=== PATIENT | female | born 1985 | race Caucasian/White ===

== ENCOUNTER 2020-12-01 13:52 | Outpatient (REF) | payer OTHER, SELFPAY ==
[2020-12-01 16:16] LABS: MANUAL DIFF FLAG NO
[2020-12-01 16:19] LABS: Basophils Percent Auto 0.4 % (0-2); Eosinophils Absolute Auto 0.3 X10*3/uL (0.0-0.4); Eosinophils Percent Auto 3.5 % (0-4); Hematocrit 41.5 % (37-47); Hemoglobin 12.9 g/dl (12.0-16.0); Imm Gran Abs Auto 0.03 X10*3/uL (0.00-0.03); Imm Gran Pct Auto 0.3 % (0.0-0.4); Lymphocytes Absolute Auto 3.3 X10*3/uL (1.2-4.9); Lymphocytes Percent Auto 35.7 % (20-40); Mean Corpuscular HGB Conc 31.1 g/dl (31.0-35.0); Mean Corpuscular Hemoglobin 26.5 pg (27.0-33.0); Mean Corpuscular Volume 85.4 fL (80-98); Mean Platelet Volume 11.1 fL (9.4-12.3); Monocytes Absolute Auto 0.6 X10*3/uL (0.1-1.2); Neutrophils Percent Auto 54.1 % (45-73); Platelet Count 326 X10*3/uL (160-400); Red Blood Count 4.86 X10*6/uL (4.20-5.50); Red Cell Distribution Width 14.6 % (11.0-16.0); White Blood Count 9.2 X10*3/uL (4.8-10.8)
[2020-12-01 16:46] LABS: Alanine Aminotransferase 24 U/L (0-31); Albumin Level 4.2 g/dL (3.5-5.0); Alkaline Phosphatase 66 U/L (39-117); Anion Gap 14 (12-20); Aspartate Amino Transferase 15 U/L (5-31); Bilirubin Total 0.7 mg/dL (0.0-1.0); Blood Urea Nitrogen 10 mg/dL (9-16); Calcium 8.7 mg/dL (8.4-10.2); Carbon Dioxide 24 mmol/L (22-29); Chloride 106 mmol/L (96-108); Cholesterol 206 mg/dL; Creatinine Clr Calc Pharmacy 132.9; Estimated Glomerular Filt Rate > 60; Glucose Fasting 83 mg/dL (60-99); HDL Cholesterol 51 mg/dL; LDL Cholesterol Calculated 137 mg/dl; Potassium 4.2 mmol/L (3.3-5.1); Sodium 140 mmol/L (135-145); Total Protein 7.3 g/dL (6.5-8.0); Triglycerides 91 mg/dL
[2020-12-01 17:07] LABS: TSH reflex Free T4 1.87 uIU/mL (0.32-4.0)
== END 2020-12-01 13:53 | disposition home or self-care (01) ==
LOC: HO.HMGCLDS 13:52
PROVIDERS: PCP Internal Medicine; Visit Provider Internal Medicine
DX: Z00.01 Encounter for general adult medical examination with abnormal findings (principal); E66.9 Obesity, unspecified; K51.50 Left sided colitis without complications
CPT/HCPCS: 36415; 80053; 80061; 84443; 85025

== ENCOUNTER 2020-12-16 13:59 | Outpatient (REF) | payer OTHER, SELFPAY ==
[2020-12-20 06:42] LABS: HPV mRNA E6/E7 rflx Not Detected (Not Detected)
== END 2020-12-16 14:00 | disposition home or self-care (01) ==
LOC: HO.LAB 13:59
PROVIDERS: PCP Internal Medicine; Visit Provider Advanced Practice Midwife
DX: Z01.419 Encounter for gynecological examination (general) (routine) without abnormal findings (principal); Z11.51 Encounter for screening for human papillomavirus (HPV); E66.9 Obesity, unspecified; F41.9 Anxiety disorder, unspecified; Z87.891 Personal history of nicotine dependence; Z79.899 Other long term (current) drug therapy
CPT/HCPCS: 36415; 87624; 88142

== ENCOUNTER 2021-04-18 02:14 | Emergency (ER) | payer OTHER, SELFPAY ==
[2021-04-18 02:27] VITALS: BP 154/105; PULSE 108; RESP 16; TEMP 36.3; O2SAT 98; BMI 42.4
--- NOTE | 2021-04-18 03:01 | ED_ITS ---
HPI - Allergic Reaction General Chief complaint: Allergic Reaction Stated complaint: allergic reaction to topical med Time Seen by Provider: 04/18/21 03:01 Source: patient Mode of arrival: ambulatory History of Present Illness HPI narrative: 35-year-old female with presentation of facial redness and swelling after re-application of topical clindamycin for acne treatment. Patient denies any shortness of breath, scratchy throat, lip/tongue swelling and states that she took 50 mg of Benadryl at approximately 11:00 p.m. last night. Patient states that she use the clindamycin a couple of weeks ago with some facial redness, stopped using it but then decided to try it again yesterday and now presents with a red swollen face. Related Data Home Medications Medication Instructions Recorded Confirmed lansoprazole 30 mg capsule,delayed 30 mg PO DAILY 12/01/20 release mesalamine 1.2 gram tablet,delayed g PO 12/01/20 release vedolizumab 300 mg intravenous 0 mg IV 12/01/20 solution Previous Rx's Medication Instructions Recorded montelukast 10 mg tablet 10 mg PO DAILY #90 tab 12/04/20 albuterol sulfate 90 mcg/actuation 2 puff PO Q4H PRN #8.5 g 01/09/21 aerosol inhaler beclomethasone dipropionate 80 2 inh INHALATION Q12H #10.6 g 01/09/21 mcg/actuation HFA breath activated aerosol fluticasone propionate 50 1 spray INTRANASAL DAILY #16 g 01/09/21 mcg/actuation nasal spray,suspension Allergies Allergy/AdvReac Type Severity Reaction Status Date / Time mercaptopurine Allergy Intermediate PANCREATITI Verified 12/16/20 14:10 [MERCAPTOPURINE] S prochlorperazine Allergy Intermediate DYSTONIA Verified 12/16/20 14:10 [From COMPAZINE] Review of Systems Review of Systems: Pertinent positives and negatives as stated in HPI 10 point review of systems is otherwise negative. [facility] Past Medical History Source: nursing notes reviewed Medical History Allergic rhinitis Anxiety GERD (gastroesophageal reflux disease) Mild intermittent asthma in adult without complication Obesity (BMI 30-39.9) Ulcerative colitis, left sided Surgical History Hx of LASIK Family History Family History Father Drug addiction Alcoholism Mother History of COPD History of asthma Maternal Aunt Breast cancer Ovarian cancer Bipolar 1 disorder Maternal Grandfather Colon cancer Brother Drug addiction Alcoholism Social History Social History Alcohol intake: current Advance Directives: No Advance Directives Information Provided: No Patient : No Gender identity: female Physical Exam Vital Signs: Vital Signs: Last Vital Signs Temp 97.3 F 04/18/21 02:27 Pulse 108 H 04/18/21 02:27 Resp 16 04/18/21 02:27 BP 154/105 H 04/18/21 02:27 Pulse Ox 98 04/18/21 02:27 Body Mass Index 42.4 VITAL SIGNS: Reviewed. GENERAL: Well developed, well nourished, in no acute distress. HEAD: Normocephalic/atraumatic EYES: PERRLA, EOMI EARS: Ext canals without abnormality, TMs non-bulging and non-erythematous NOSE: Nares patent bilateral OROPHARYNX: no oral lesions noted, posterior pharynx clear LUNGS: Normal breath sounds. No adventitious sounds or accessory muscle use. SpO2<98> CARDIOVASCULAR: Regular rate and rhythm without noted murmurs ABDOMEN: Soft, non-tender, non-distended with bowel sounds. SKIN: Inspection of the skin reveals facial erythema/swelling along distribution of medication application but there are hives no where else on the body. NEUROLOGIC: Alert and oriented x 4. Course Course Course Narrative: 35-year-old female with history and clinical presentation consistent with contact dermatitis likely secondary to the clindamycin. Patient knows that we will continue to observe her for additional 1-2 hours. 0350: On re-evaluation patient's face has improved greatly with gradual reduction in redness as well as swelling. Patient again denies any shortness of breath, throat scratchiness, lip/tongue swelling. Patient is otherwise stable for discharge to home with instructions to continue with [id number] Benadryl for the next 24-48 hours and instructed to no longer use topical clindamycin. Discharge Plan Discharge Clinical Impression: Contact dermatitis, Clindamycin adverse reaction Patient Disposition: Home, Self-Care Instructions: Contact Dermatitis (ED), Adverse Drug Reaction (ED) Additional Instructions: 1. Resume all home medications as prescribed. 2. Please follow-up with your primary care provider in the next 2-3 days for re- evaluation further outpatient management. 3. Continue to use [id number] Benadryl for the next 24-48 hours to control facial rash. Return to the ER for acute worsening of symptoms. Prescriptions: No Action montelukast 10 mg tablet 10 mg PO DAILY Qty: 90 RF: 1 albuterol sulfate 90 mcg/actuation HFA aerosol inhaler 2 puff PO Q4H PRN (Reason: shortness of breath or wheezing) Qty: 8.5 RF: 2 beclomethasone dipropionate 80 mcg/actuation HFA aerosol breath activated 2 inh inhalation Q12H Qty: 10.6 RF: 1 fluticasone propionate 50 mcg/actuation spray,suspension 1 spray intranasal DAILY Qty: 16 RF: 1 mesalamine 1.2 gram tablet,delayed release (DR/EC) PO RF: 0 lansoprazole 30 mg capsule,delayed release(DR/EC) 30 mg PO DAILY RF: 0 Entyvio 300 mg recon soln 0 mg IV RF: 0 Referrals: Mar Edwards MD [Primary Care Provider] - 2 days (Adverse reaction to topical clindamycin without anaphylaxis/angioedema.)
[2021-04-18] MEDS: Famotidine 20 MG TABLET PO (03:14)
== END 2021-04-18 04:05 | disposition home or self-care (01) ==
PROVIDERS: Emergency Provider Student in an Organized Health Care Education/Training Program; PCP Internal Medicine
DX: L25.1 Unspecified contact dermatitis due to drugs in contact with skin (principal); T36.8X5A Adverse effect of other systemic antibiotics, initial encounter; Y92.9 Unspecified place or not applicable
CPT/HCPCS: 99283

== ENCOUNTER 2022-02-26 09:28 | Outpatient (REF) | payer OTHER, SELFPAY ==
[2022-02-26 11:49] LABS: Anion Gap 11 (12-20); Blood Urea Nitrogen 11 mg/dL (9-16); Calcium 9.5 mg/dL (8.4-10.2); Carbon Dioxide 24 mmol/L (22-29); Chloride 106 mmol/L (96-108); Cholesterol 204 mg/dL; Estimated Glomerular Filt Rate > 60; Glucose Fasting 97 mg/dL (60-99); HDL Cholesterol 53 mg/dL; LDL Cholesterol Calculated 141 mg/dl; Potassium 4.4 mmol/L (3.3-5.1); Sodium 137 mmol/L (135-145); Triglycerides 53 mg/dL
[2022-02-26 12:12] LABS: Vitamin D 25-OH Total 34.8 ng/mL (>30)
== END 2022-02-26 09:29 | disposition home or self-care (01) ==
LOC: HO.HMGCLDS 09:28
PROVIDERS: PCP Internal Medicine; Visit Provider Internal Medicine Gastroenterology
DX: Z00.01 Encounter for general adult medical examination with abnormal findings (principal); E66.9 Obesity, unspecified; K51.50 Left sided colitis without complications; K51.30 Ulcerative (chronic) rectosigmoiditis without complications
CPT/HCPCS: 36415; 80048; 80061; 80280; 82306; 82542

== ENCOUNTER 2022-05-26 14:19 | Outpatient (REF) | payer OTHER, SELFPAY ==
[2022-05-26 18:48] LABS: CT PCR NOT DETECTED (Not Detect.)
[2022-05-26 18:49] LABS: NG PCR NOT DETECTED (Not Detect.)
[2022-05-27 10:50] LABS: BV Int Neg Control Negative (Negative); BV Int Pos Control Positive (Positive)
== END 2022-05-26 14:20 | disposition home or self-care (01) ==
LOC: HO.LAB 14:19
PROVIDERS: Visit Provider Advanced Practice Midwife
DX: Z11.3 Encounter for screening for infections with a predominantly sexual mode of transmission (principal)
CPT/HCPCS: 87480; 87491; 87510; 87591; 87660

== ENCOUNTER 2023-01-17 18:28 | Observation (INO) | payer OTHER, SELFPAY ==
--- NOTE | ~2023-01-17 | CT_ITS ---
EXAMINATION: CT ABDOMEN AND PELVIS WITH CONTRAST CLINICAL INFORMATION: Epigastric pain, history of pancreatitis COMPARISON: None available. TECHNIQUE: Multidetector volumetric images were obtained from the superior aspect of the liver through the pubic symphysis following administration 85 mL of Omnipaque 350 intravenous contrast. Sagittal and coronal reformatted images were obtained on the technologist's workstation. Oral contrast: No This CT examination was performed using dose optimization techniques as appropriate, variously including the following: *Automated exposure control *Adjustment of mA and/or kV according to patient size (this includes techniques or standardized protocols for targeted exams where dose is matched to indication/reason for exam; i.e. extremities or head) *Use of iterative reconstruction technique DLP: 951 mGy-cm FINDINGS: LUNG BASES: The visualized lung bases are unremarkable. LIVER, GALLBLADDER, AND BILIARY TREE: The liver is normal in size, shape, and attenuation. No focal hepatic lesion or biliary ductal dilatation is present. The gallbladder is unremarkable with no evidence of radiopaque gallstones, gallbladder wall thickening, or obvious pericholecystic inflammatory changes. PANCREAS: There is mild peripancreatic stranding, suspicious for mild sequelae of pancreatitis. No discrete fluid collection is seen. SPLEEN: Unremarkable. ADRENAL GLANDS: Unremarkable. KIDNEYS AND URETERS: Bilateral nephrograms are symmetric. No hydronephrosis or obstructing calculus identified. BLADDER: Mildly distended and grossly unremarkable. GASTROINTESTINAL TRACT: Assessment for wall thickening in some segments of the colon is limited due to luminal collapse, though no significant pericolonic stranding is seen to strongly suggest a colitis. No evidence of bowel obstruction. The appendix is unremarkable. No free fluid or free air is seen. ABDOMINAL WALL: No significant hernia is appreciated. LYMPH NODES: Normal. VASCULAR: Unremarkable. PELVIC VISCERA: There is a simple right adnexal cyst measuring up to 3.2 cm; no follow-up imaging recommended. OSSEOUS STRUCTURES: Small sclerotic focus in the L2 vertebral body is suggestive of a bone island. CT/CT abdomen pelvis w IV con IMPRESSION: Mild peripancreatic stranding, suspicious for mild sequelae of pancreatitis.
[2023-01-17 18:42] VITALS: BP 146/107; PULSE 125; RESP 20; TEMP 36.8; O2SAT 98; BMI 41.5
--- NOTE | 2023-01-17 18:42 | ED.ABDPAIN ---
HPI - Abdominal Pain General Chief Complaint: Abdominal Pain <VIRA Shrestha - Last Filed: 01/17/23 18:46> Stated Complaint: upper abd pain <VIRA Shrestha - Last Filed: 01/17/23 18:46> Time Seen by Provider: 01/17/23 23:15 <VIRA Shrestha - Last Filed: 01/17/23 18:46> Source: patient <Rosie Rubio MD - Last Filed: 01/18/23 01:29> Mode of arrival: ambulatory <Rosei Rubio MD - Last Filed: 01/18/23 01:29> Limitations: no limitations <Rosie Rubio MD - Last Filed: 01/18/23 01:29> History of Present Illness HPI narrative: Patient comes to the emergency room complaining of abdominal pain for 1 week. Patient states it is mostly epigastric. Patient complaining of nausea, no vomiting or diarrhea, complaining of constipation. Patient states that she has had pancreatitis in the past secondary to mercaptopurine. Currently patient is taking mesalamine for ulcerative colitis. Patient states she had a colonoscopy done 2 weeks ago, she was told that she has significant inflammation. <Rosie Rubio MD - Last Filed: 01/18/23 01:29> Related Data Home Medications: Home Medications Medication Instructions Recorded Confirmed lansoprazole 30 mg capsule,delayed 30 mg PO DAILY 12/01/20 05/26/22 release mesalamine 1.2 gram tablet,delayed g PO 12/01/20 05/26/22 release vedolizumab 300 mg intravenous 0 mg IV 12/01/20 05/26/22 solution ondansetron HCl 4 mg tablet 4 mg PO Q8H PRN 11/12/22 spironolactone 100 mg tablet 100 mg PO QAM acne 11/12/22 Previous Rx's Medication Instructions Recorded fluticasone propionate 50 1 spray intranasal DAILY #16 grams 03/31/22 mcg/actuation nasal spray,suspension albuterol sulfate 90 mcg/actuation 2 puff PO Q4H PRN shortness of 09/24/22 aerosol inhaler breath or wheezing #8.5 grams beclomethasone dipropionate 80 4 inh inhalation Q12H 90 days #3 11/12/22 mcg/actuation HFA breath activated inhalers aerosol (Qvar RediHaler) escitalopram oxalate 10 mg tablet 10 mg PO DAILY #90 tabs 12/19/22 fexofenadine 60 mg tablet 60 mg PO Q12H #60 tabs 12/19/22 montelukast 10 mg tablet 10 mg PO DAILY #90 tabs 12/19/22 <VIRA Shrestha - Last Filed: 01/17/23 18:46> Allergies/Adverse Reactions: Allergies Allergy/AdvReac Type Severity Reaction Status Date / Time mercaptopurine Allergy Intermediate PANCREATITI Verified 11/12/22 11:29 [MERCAPTOPURINE] S prochlorperazine Allergy Intermediate DYSTONIA Verified 11/12/22 11:29 [From COMPAZINE] clindamycin AdvReac Swelling Verified 11/12/22 11:29 <VIRA Shrestha - Last Filed: 01/17/23 18:46> Review of Systems Review of Systems Constitutional : No Weight loss, No Fever, No Chills, No Night Sweats, No Fatigue, No Malaise ENT/Mouth : No Hearing loss, No Ear Pain, No Nasal Congestion, No Sinus Pain, No Hoarseness, No sore throat, No Rhinorrhea, No Swallowing Difficulty Eyes: No Eye Pain, No Swelling, No Redness, No Foreign Body, No Discharge, No Vision Changes Cardiovascular : No Chest Pain, No SOB, No Dyspnea on Exertion, No Orthopnea, No Edema, No Palpitations Respiratory : No Cough, No Sputum, No Wheezing, No Smoke Exposure, No Dyspnea Gastrointestinal : Complaining of Nausea, No Vomiting, No Diarrhea, complaining of Constipation, complaining of epigastric pain, no hematochezia or melena Genitourinary : no irregular bleeding, No Dysuria, No Urinary Frequency, No Hematuria, No Urinary Incontinence, No Urgency, No Flank Pain, No Urinary Flow Changes, No Hesitancy Musculoskeletal : No joint pain, No Myalgias, No Joint Swelling Skin : No Skin Lesions, No rash Neuro : No Weakness, No Numbness, No Paresthesias, No Loss of Consciousness, No Dizziness, No Headache Psych : No Anxiety/Panic, No Depression, No SI/HI/AH/VH, No Social Issues, Heme/Lymph: No Bruising, No Bleeding,No Lymphadenopathy Endocrine : No Polyuria, No Polydipsia, No Temperature Intolerance <Rosie Rubio MD - Last Filed: 01/18/23 01:29> FOR[facility]LY [facility] Past Medical History Medical History: Medical History Allergic rhinitis Annual visit for general adult medical examination with abnormal findings Anxiety Anxiety and depression Family history of malignant neoplasm of breast in relative diagnosed when younger than 45 years of age GERD (gastroesophageal reflux disease) Mild intermittent asthma in adult without complication Obesity (BMI 30-39.9) Ulcerative colitis, left sided <VIRA Shrestha - Last Filed: 01/17/23 18:46> Surgical History: Surgical History Hx of LASIK <VIRA Shrestha - Last Filed: 01/17/23 18:46> Family History Family History: Family History Father Drug addiction Alcoholism Substance use disorder Mental health disorder Mother History of COPD History of asthma Mental health disorder Maternal Aunt Breast cancer Ovarian cancer Bipolar 1 disorder Maternal Grandfather Colon cancer Brother Drug addiction Alcoholism Substance use disorder Mental health disorder Brother Substance use disorder Mental health disorder <VIRA Shrestha - Last Filed: 01/17/23 18:46> Social History Social History: Social History Housing: Apartment Alcohol intake: current Patient Tobacco Use Status: Former Tobacco user Years Smoked: 6 months e-Cigarette/Vaping Use: Never Used Current occupational status: employed Gender identity: Female Cognitive needs: No Hearing needs: No Vision needs: No <VIRA Shreshta - Last Filed: 01/17/23 18:46> Physical Exam ED Vital Signs: Vital Signs - 24 hr 01/17/23 18:42 01/17/23 23:42 Temperature 98.2 F Pulse Rate 125 H Respiratory Rate 20 16 Blood Pressure 146/107 H Pulse Oximetry 98 Oxygen Delivery Method Room Air BMI result Body Mass Index 41.5 <VIRA Shrestha - Last Filed: 01/17/23 18:46> Vital Signs - 24 hr 01/17/23 18:42 01/17/23 23:42 Temperature 98.2 F Pulse Rate 125 H Respiratory Rate 20 16 Blood Pressure 146/107 H Pulse Oximetry 98 Oxygen Delivery Method Room Air BMI result Body Mass Index 41.5 <Rosie Rubio MD - Last Filed: 01/18/23 01:29> Const Other: Appearance: Alert. Oriented X3. Seems uncomfortable Eyes: Pupils equal, round and reactive to light. ENT: Pharynx normal. Neck: Normal inspection. Neck supple. No lymph nodes noted. No crepitus CVS: Normal heart rate and rhythm. Pulses normal. Normal S1 and S2 Respiratory: No respiratory distress. Breath sounds normal. No Wheezing. No rales Abdomen: Soft , discomfort to palpation epigastric area, no rebound or guarding, negative Cat sign Skin: Skin warm and dry. Normal skin color. Normal skin turgor. Extremities: No lower extremity edema. No Lacerations. No Rash Neuro: Oriented X 3. No motor deficit. No sensory deficit. Moving all extremities. No slurred speech. CN 2 through 12 grossly intact Psych: calm, cooperative, normal affect <Rosie Rubio MD - Last Filed: 01/18/23 01:29> Course Course Course Narrative: RME - 37yo female with history of UC presenting with upper abdominal pain for 1 week. Patient endorses diarrhea but denies nausea or vomiting. Patient had endoscopy and colonoscopy 1 week ago in fall which showed inflammation. Pt takes mesalamine qd and entyvio q8w. Plan: labs <VIRA Shrestha - Last Filed: 01/17/23 18:46> Medical Decision Making Medical Decision Making MDM Narrative: -patient receiving IV fluids, morphine and Zofran -patient's white blood cell count is 16.8. Could be reactive leukocytosis versus pancreatitis versus an acute abdominal process. -CT scan of the abdomen pending. -CT scan of the abdomen shows wall thickening of some segments of the colon. Patient likely has colitis. Patient being treated with IV levofloxacin and metronidazole -despite pain medication, patient continues complaining of abdominal pain. -I discussed the patient with Dr. Kenny, patient being admitted for ulcerative colitis flare. <Rosie Rubio MD - Last Filed: 01/18/23 01:29> Differential Diagnosis Differential Diagnoses: The differential diagnosis associated with the presentation includes (Ulcerative colitis, Crohn's disease, gastroenteritis, colitis) <Rosie Rubio MD - Last Filed: 01/18/23 01:29> Admission/Observation Consideration of admission/observation: Escalation of care including admission/observation considered <Rosie Rubio MD - Last Filed: 01/18/23 01:29> Consult Healthcare Provider Management of the patient was discussed with: Hospitalist <Rosie Rubio MD - Last Filed: 01/18/23 01:29> Lab Data MDM Lab Attestation statement: I reviewed the patient's lab results. <Rosie Rubio MD - Last Filed: 01/18/23 01:29> Result Diagrams: 01/17/23 19:33 01/17/23 19:33 <VIRA Shrestha - Last Filed: 01/17/23 18:46> Labs: Lab Results 01/17/23 01/17/23 01/17/23 Range/Units 19:33 19:33 19:33 WBC 16.8 H (4.8-10.8) X10*3/uL RBC 4.92 (4.20-5.50) X10*6/uL Hgb 13.4 (12.0-16.0) g/dl Hct 42.7 (37.0-47.0) % MCV 86.8 (80.0-98.0) fL MCH 27.2 (27.0-33.0) pg MCHC 31.4 (31.0-35.0) g/dl RDW 14.8 (11.0-16.0) % Plt Count 427 H (160-400) X10*3/uL MPV 9.3 L (9.4-12.3) fL Immature Gran % (Auto) 0.2 (0.0-0.4) % Neut % (Auto) 61.6 (45-73) % Lymph % (Auto) 24.0 (20-40) % Crane % (Auto) 5.2 (2-11) % Eos % (Auto) 8.6 H (0-4) % Baso % (Auto) 0.4 (0-2) % Lymph # (Auto) 4.0 (1.2-4.9) X10*3/uL Crane # (Auto) 0.9 (0.1-1.2) X10*3/uL Eos # (Auto) 1.4 H (0.0-0.4) X10*3/uL Baso # (Auto) 0.1 (0.0-0.2) X10*3/uL Abs Immat Gran (auto) 0.04 H (0.00-0.03) X10*3/uL Absolute Neuts (auto) 10.4 H (2.0-8.3) x10*3/uL Absolute Nucleated RBC 0.000 (0.0-0.012) X10*3/uL Nucleated RBC % (auto) 0.0 (0.0-0.2) /100WBC Sodium 139 (135-145) mmol/L Potassium 4.5 (3.3-5.1) mmol/L Chloride 104 (96-108) mmol/L Carbon Dioxide 22 (22-29) mmol/L Anion Gap 18 (12-20) BUN 11 (9-16) mg/dL Creatinine 0.76 (0.5-1.4) mg/dL Estim Creat Clear Calc 128.5 Estimated GFR > 60 Random Glucose 90 (60-115) mg/dL Calcium 9.7 (8.4-10.2) mg/dL Magnesium 2.0 (1.6-2.6) mg/dL Total Bilirubin 0.6 (0.0-1.0) mg/dL Direct Bilirubin 0.1 (0.0-0.5) mg/dL AST 19 (5-31) U/L ALT 24 (0-31) U/L Alkaline Phosphatase 115 (39-117) U/L Total Protein 7.9 (6.5-8.0) g/dL Albumin 4.3 (3.5-5.0) g/dL Lipase 118 H (8-78) U/L Beta HCG, Quant < 2 mIU/mL Urine Color Urine Appearance Urine pH (5.0-9.0) Ur Specific [place] (1.005-1.025) Urine Protein (Neg-Trace) mg/dL Urine Glucose (UA) (Negative) mg/dL Urine Ketones (Negative) mg/dL Urine Blood (Negative) Urine Nitrite (Negative) Ur Leukocyte Esterase (Negative) Urine Test (NEGATIVE) 01/17/23 01/17/23 Range/Units 19:56 19:56 WBC (4.8-10.8) X10*3/uL RBC (4.20-5.50) X10*6/uL Hgb (12.0-16.0) g/dl Hct (37.0-47.0) % MCV (80.0-98.0) fL MCH (27.0-33.0) pg MCHC (31.0-35.0) g/dl RDW (11.0-16.0) % Plt Count (160-400) X10*3/uL MPV (9.4-12.3) fL Immature Gran % (Auto) (0.0-0.4) % Neut % (Auto) (45-73) % Lymph % (Auto) (20-40) % Crane % (Auto) (2-11) % Eos % (Auto) (0-4) % Baso % (Auto) (0-2) % Lymph # (Auto) (1.2-4.9) X10*3/uL Crane # (Auto) (0.1-1.2) X10*3/uL Eos # (Auto) (0.0-0.4) X10*3/uL Baso # (Auto) (0.0-0.2) X10*3/uL Abs Immat Gran (auto) (0.00-0.03) X10*3/uL Absolute Neuts (auto) (2.0-8.3) x10*3/uL Absolute Nucleated RBC (0.0-0.012) X10*3/uL Nucleated RBC % (auto) (0.0-0.2) /100WBC Sodium (135-145) mmol/L Potassium (3.3-5.1) mmol/L Chloride (96-108) mmol/L Carbon Dioxide (22-29) mmol/L Anion Gap (12-20) BUN (9-16) mg/dL Creatinine (0.5-1.4) mg/dL Estim Creat Clear Calc Estimated GFR Random Glucose (60-115) mg/dL Calcium (8.4-10.2) mg/dL Magnesium (1.6-2.6) mg/dL Total Bilirubin (0.0-1.0) mg/dL Direct Bilirubin (0.0-0.5) mg/dL AST (5-31) U/L ALT (0-31) U/L Alkaline Phosphatase (39-117) U/L Total Protein (6.5-8.0) g/dL Albumin (3.5-5.0) g/dL Lipase (8-78) U/L Beta HCG, Quant mIU/mL Urine Color Yellow Urine Appearance Clear Urine pH 5.5 (5.0-9.0) Ur Specific [place] 1.025 (1.005-1.025) Urine Protein Negative (Neg-Trace) mg/dL Urine Glucose (UA) Negative (Negative) mg/dL Urine Ketones 40 (Negative) mg/dL Urine Blood Negative (Negative) Urine Nitrite Negative (Negative) Ur Leukocyte Esterase Negative (Negative) Urine Test NEGATIVE (NEGATIVE) <VIRA Shrestha - Last Filed: 01/17/23 18:46> Lab Results 01/17/23 01/17/23 01/17/23 Range/Units 19:33 19:33 19:33 WBC 16.8 H (4.8-10.8) X10*3/uL RBC 4.92 (4.20-5.50) X10*6/uL Hgb 13.4 (12.0-16.0) g/dl Hct 42.7 (37.0-47.0) % MCV 86.8 (80.0-98.0) fL MCH 27.2 (27.0-33.0) pg MCHC 31.4 (31.0-35.0) g/dl RDW 14.8 (11.0-16.0) % Plt Count 427 H (160-400) X10*3/uL MPV 9.3 L (9.4-12.3) fL Immature Gran % (Auto) 0.2 (0.0-0.4) % Neut % (Auto) 61.6 (45-73) % Lymph % (Auto) 24.0 (20-40) % Crane % (Auto) 5.2 (2-11) % Eos % (Auto) 8.6 H (0-4) % Baso % (Auto) 0.4 (0-2) % Lymph # (Auto) 4.0 (1.2-4.9) X10*3/uL Crane # (Auto) 0.9 (0.1-1.2) X10*3/uL Eos # (Auto) 1.4 H (0.0-0.4) X10*3/uL Baso # (Auto) 0.1 (0.0-0.2) X10*3/uL Abs Immat Gran (auto) 0.04 H (0.00-0.03) X10*3/uL Absolute Neuts (auto) 10.4 H (2.0-8.3) x10*3/uL Absolute Nucleated RBC 0.000 (0.0-0.012) X10*3/uL Nucleated RBC % (auto) 0.0 (0.0-0.2) /100WBC Sodium 139 (135-145) mmol/L Potassium 4.5 (3.3-5.1) mmol/L Chloride 104 (96-108) mmol/L Carbon Dioxide 22 (22-29) mmol/L Anion Gap 18 (12-20) BUN 11 (9-16) mg/dL Creatinine 0.76 (0.5-1.4) mg/dL Estim Creat Clear Calc 128.5 Estimated GFR > 60 Random Glucose 90 (60-115) mg/dL Calcium 9.7 (8.4-10.2) mg/dL Magnesium 2.0 (1.6-2.6) mg/dL Total Bilirubin 0.6 (0.0-1.0) mg/dL Direct Bilirubin 0.1 (0.0-0.5) mg/dL AST 19 (5-31) U/L ALT 24 (0-31) U/L Alkaline Phosphatase 115 (39-117) U/L Total Protein 7.9 (6.5-8.0) g/dL Albumin 4.3 (3.5-5.0) g/dL Lipase 118 H (8-78) U/L Beta HCG, Quant < 2 mIU/mL Urine Color Urine Appearance Urine pH (5.0-9.0) Ur Specific [place] (1.005-1.025) Urine Protein (Neg-Trace) mg/dL Urine Glucose (UA) (Negative) mg/dL Urine Ketones (Negative) mg/dL Urine Blood (Negative) Urine Nitrite (Negative) Ur Leukocyte Esterase (Negative) Urine Test (NEGATIVE) 01/17/23 01/17/23 Range/Units 19:56 19:56 WBC (4.8-10.8) X10*3/uL RBC (4.20-5.50) X10*6/uL Hgb (12.0-16.0) g/dl Hct (37.0-47.0) % MCV (80.0-98.0) fL MCH (27.0-33.0) pg MCHC (31.0-35.0) g/dl RDW (11.0-16.0) % Plt Count (160-400) X10*3/uL MPV (9.4-12.3) fL Immature Gran % (Auto) (0.0-0.4) % Neut % (Auto) (45-73) % Lymph % (Auto) (20-40) % [place]ane % (Auto) (2-11) % Eos % (Auto) (0-4) % Baso % (Auto) (0-2) % Lymph # (Auto) (1.2-4.9) X10*3/uL [place] # (Auto) (0.1-1.2) X10*3/uL Eos # (Auto) (0.0-0.4) X10*3/uL Baso # (Auto) (0.0-0.2) X10*3/uL Abs Immat Gran (auto) (0.00-0.03) X10*3/uL Absolute Neuts (auto) (2.0-8.3) x10*3/uL Absolute Nucleated RBC (0.0-0.012) X10*3/uL Nucleated RBC % (auto) (0.0-0.2) /100WBC Sodium (135-145) mmol/L Potassium (3.3-5.1) mmol/L Chloride (96-108) mmol/L Carbon Dioxide (22-29) mmol/L Anion Gap (12-20) BUN (9-16) mg/dL Creatinine (0.5-1.4) mg/dL Estim Creat Clear Calc Estimated GFR Random Glucose (60-115) mg/dL Calcium (8.4-10.2) mg/dL Magnesium (1.6-2.6) mg/dL Total Bilirubin (0.0-1.0) mg/dL Direct Bilirubin (0.0-0.5) mg/dL AST (5-31) U/L ALT (0-31) U/L Alkaline Phosphatase (39-117) U/L Total Protein (6.5-8.0) g/dL Albumin (3.5-5.0) g/dL Lipase (8-78) U/L Beta HCG, Quant mIU/mL Urine Color Yellow Urine Appearance Clear Urine pH 5.5 (5.0-9.0) Ur Specific [place] 1.025 (1.005-1.025) Urine Protein Negative (Neg-Trace) mg/dL Urine Glucose (UA) Negative (Negative) mg/dL Urine Ketones 40 (Negative) mg/dL Urine Blood Negative (Negative) Urine Nitrite Negative (Negative) Ur Leukocyte Esterase Negative (Negative) Urine Test NEGATIVE (NEGATIVE) <Rosie Rubio MD - Last Filed: 01/18/23 01:29> Radiology Impression Discussion of test interpretation with radiology: I have reviewed the radiologist's reading. <Rosie Rubio MD - Last Filed: 01/18/23 01:29> Radiologist Impression: FINDINGS: LUNG BASES: The visualized lung bases are unremarkable.? LIVER, GALLBLADDER, AND BILIARY TREE: The liver is normal in size, shape, and attenuation. No focal hepatic lesion or biliary ductal dilatation is present. The gallbladder is unremarkable with no evidence of radiopaque gallstones, gallbladder wall thickening, or obvious pericholecystic inflammatory changes.? PANCREAS: There is mild peripancreatic stranding, suspicious for mild sequelae of pancreatitis. No discrete fluid collection is seen.? SPLEEN: Unremarkable.? ADRENAL GLANDS: Unremarkable.? KIDNEYS AND URETERS: Bilateral nephrograms are symmetric. No hydronephrosis or obstructing calculus identified.? BLADDER: Mildly distended and grossly unremarkable.? GASTROINTESTINAL TRACT: Assessment for wall thickening in some segments of the colon is limited due to luminal collapse, though no significant pericolonic stranding is seen to strongly suggest a colitis. No evidence of bowel obstruction. The appendix is unremarkable. No free fluid or free air is seen. ABDOMINAL WALL: No significant hernia is appreciated.? LYMPH NODES: Normal. VASCULAR: Unremarkable. PELVIC VISCERA: There is a simple right adnexal cyst measuring up to 3.2 cm; no follow-up imaging recommended.? OSSEOUS STRUCTURES: Small sclerotic focus in the L2 vertebral body is suggestive of a bone island.? CT/CT abdomen pelvis w IV con IMPRESSION: Mild peripancreatic stranding, suspicious for mild sequelae of pancreatitis. ? <Rosie Rubio MD - Last Filed: 01/18/23 01:29> Medications Administered Discontinued Medications Generic Name Dose Route Start Last Admin Trade Name Freq PRN Reason Stop Dose Admin Sodium Chloride 1,000 mls @ 999 mls/hr 01/17/23 23:21 01/17/23 23:42 Ns IVCONT 01/18/23 00:21 999 mls/hr .Q1H1M ONE Administration Iohexol 85 ml 01/18/23 00:00 01/18/23 00:01 Iohexol 350 Mg/Ml 100 Ml Infus..Btl IV 01/18/23 00:01 85 ml ONCE ONE Administration Morphine Sulfate 4 mg 01/17/23 23:21 01/17/23 23:42 Morphine Sulfate 4 Mg/Ml Cartridge IVPUSH 01/17/23 23:22 4 mg ONCE ONE Administration Protocol Ondansetron HCl 4 mg 01/17/23 23:21 01/17/23 23:43 Ondansetron Hcl 4 Mg/2 Ml Vial IVPUSH 01/17/23 23:22 4 mg ONCE ONE Administration <VIRA Shrestha - Last Filed: 01/17/23 18:46> Medications Administered Discontinued Medications Generic Name Dose Route Start Last Admin Trade Name Freq PRN Reason Stop Dose Admin Sodium Chloride 1,000 mls @ 999 mls/hr 01/17/23 23:21 01/17/23 23:42 Ns IVCONT 01/18/23 00:21 999 mls/hr .Q1H1M ONE Administration Iohexol 85 ml 01/18/23 00:00 01/18/23 00:01 Iohexol 350 Mg/Ml 100 Ml Infus..Btl IV 01/18/23 00:01 85 ml ONCE ONE Administration Morphine Sulfate 4 mg 01/17/23 23:21 01/17/23 23:42 Morphine Sulfate 4 Mg/Ml Cartridge IVPUSH 01/17/23 23:22 4 mg ONCE ONE Administration Protocol Ondansetron HCl 4 mg 01/17/23 23:21 01/17/23 23:43 Ondansetron Hcl 4 Mg/2 Ml Vial IVPUSH 04/17/23 23:22 4 mg ONCE ONE Administration <Rosie Rubio MD - Last Filed: 01/18/23 01:29> Critical Care Time Critical Care Time Critical Care Time: Yes <Rosie Rubio MD - Last Filed: 01/18/23 01:29> Total Critical Care Time: 30 <Rosie Rubio MD - Last Filed: 01/18/23 01:29> Attestation: I have personally provided critical care time. Time includes review of lab data, radiology results, discussion with consultants, and monitoring for potential decompensation. Intervention performed as documented. <Rosie Rubio MD - Last Filed: 01/18/23 01:29> Discharge Plan Discharge Clinical Impression: Ulcerative colitis <VIRA Shrestha - Last Filed: 01/17/23 18:46> Patient Disposition: Admitted As Inpatient <VIRA Shrestha - Last Filed: 01/17/23 18:46> Prescriptions: No Action fluticasone propionate 50 mcg/actuation spray,suspension 1 spray intranasal DAILY Qty: 16 5RF albuterol sulfate 90 mcg/actuation HFA aerosol inhaler 2 puff PO Q4H PRN (Reason: shortness of breath or wheezing) Qty: 8.5 2RF montelukast 10 mg tablet 10 mg PO DAILY Qty: 90 1RF fexofenadine 60 mg tablet 60 mg PO Q12H Qty: 60 2RF escitalopram oxalate 10 mg tablet 10 mg PO DAILY Qty: 90 1RF mesalamine 1.2 gram tablet,delayed release (DR/EC) PO lansoprazole 30 mg capsule,delayed release(DR/EC) 30 mg PO DAILY Entyvio 300 mg recon soln 0 mg IV spironolactone 100 mg tablet 100 mg PO QAM ondansetron HCl 4 mg tablet 4 mg PO Q8H PRN Qvar RediHaler 80 mcg/actuation HFA aerosol breath activated 4 inh inhalation Q12H 90 Days Qty: 3 4RF <VIRA Shrestha - Last Filed: 01/17/23 18:46>
[2023-01-17 19:37] LABS: MANUAL DIFF FLAG NO
[2023-01-17 19:38] LABS: Basophils Absolute Auto 0.1 X10*3/uL (0.0-0.2); Basophils Percent Auto 0.4 % (0-2); Eosinophils Absolute Auto 1.4 X10*3/uL (0.0-0.4); Eosinophils Percent Auto 8.6 % (0-4); Hematocrit 42.7 % (37.0-47.0); Hemoglobin 13.4 g/dl (12.0-16.0); Imm Gran Abs Auto 0.04 X10*3/uL (0.00-0.03); Imm Gran Pct Auto 0.2 % (0.0-0.4); Mean Corpuscular HGB Conc 31.4 g/dl (31.0-35.0); Mean Corpuscular Hemoglobin 27.2 pg (27.0-33.0); Mean Corpuscular Volume 86.8 fL (80.0-98.0); Mean Platelet Volume 9.3 fL (9.4-12.3); Monocytes Absolute Auto 0.9 X10*3/uL (0.1-1.2); Monocytes Percent Auto 5.2 % (2-11); Neutrophils Absolute Auto 10.4 x10*3/uL (2.0-8.3); Neutrophils Percent Auto 61.6 % (45-73); Platelet Count 427 X10*3/uL (160-400); Red Blood Count 4.92 X10*6/uL (4.20-5.50); Red Cell Distribution Width 14.8 % (11.0-16.0); White Blood Count 16.8 X10*3/uL (4.8-10.8)
[2023-01-17 19:57] LABS: Alanine Aminotransferase 24 U/L (0-31); Albumin Level 4.3 g/dL (3.5-5.0); Alkaline Phosphatase 115 U/L (39-117); Anion Gap 18 (12-20); Aspartate Amino Transferase 19 U/L (5-31); Bilirubin Direct 0.1 mg/dL (0.0-0.5); Bilirubin Total 0.6 mg/dL (0.0-1.0); Blood Urea Nitrogen 11 mg/dL (9-16); Calcium 9.7 mg/dL (8.4-10.2); Carbon Dioxide 22 mmol/L (22-29); Chloride 104 mmol/L (96-108); Creatinine Clr Calc Pharmacy 128.5; Estimated Glomerular Filt Rate > 60; Glucose Random 90 mg/dL (60-115); Lipase 118 U/L (8-78); Potassium 4.5 mmol/L (3.3-5.1); Sodium 139 mmol/L (135-145); Total Protein 7.9 g/dL (6.5-8.0)
[2023-01-17 20:06] LABS: HCG Quantitative < 2 mIU/mL
[2023-01-17 20:13] LABS: Appearance Urine Clear; Color Urine Yellow; Glucose Urine UA Negative (Negative); Leukocyte Esterase Urine Negative (Negative); Nitrite Urine Negative (Negative); PH 5.5 (5.0-9.0); Specific Gravity - Urine 1.025 (1.005-1.025); Urine Blood Negative (Negative); Urine Ketones 40 mg/dL (Negative); Urine Protein Negative (Neg-Trace)
[2023-01-17 20:15] LABS: UPreg QC Valid YES; Urine Pregnancy NEGATIVE (NEGATIVE)
[2023-01-17 23:42] VITALS: RESP 16
[2023-01-17] MEDS: Morphine Sulfate 4 MG/ML CARTRIDGE IVPUSH (23:42)
[2023-01-17] MEDS: 0.9 % Sodium Chloride 1,000 ML 999 ML IVCONT (23:42)
[2023-01-17] MEDS: ondansetron HCL 4 MG/2 ML VIAL IVPUSH (23:43)
[2023-01-18] MEDS: iohexoL 350 MG/ML 100 ML INFUS..BTL 85 ML IV (00:01)
[2023-01-18 02:03] LABS: Triglycerides 129 mg/dL
[2023-01-18] MEDS: levoFLOXacin/D5W 500 MG/100 ML PIGGYBACK 100 MG IV (02:24)
[2023-01-18] MEDS: methylPREDNISolone Sod Succ 125 MG/2 ML VIAL IVPUSH (02:26)
--- NOTE | 2023-01-18 02:30 | PC.NURSE ---
late entry- this rn assumed care of pt from [facility] room @ [id number]. pt medicated according to mar. pt ambulates independently to restroom
[2023-01-18] MEDS: Morphine Sulfate 4 MG/ML CARTRIDGE IVPUSH ×4 (03:34→19:40)
[2023-01-18] MEDS: metroNIDAZOLE/NS 500 MG/100 ML PIGGYBACK 100 MG IV (03:35)
[2023-01-18] MEDS: Lactated Ringers 1,000 ML 200 ML IVCONT ×5 (03:35→21:33)
[2023-01-18 04:02] VITALS: BP 104/59; PULSE 83; RESP 19; TEMP 36.6; O2SAT 93
[2023-01-18 06:20] LABS: MANUAL DIFF FLAG NO
[2023-01-18 06:27] LABS: Basophils Percent Auto 0.3 % (0-2); Eosinophils Absolute Auto 0.4 X10*3/uL (0.0-0.4); Hematocrit 38.6 % (37.0-47.0); Hemoglobin 11.8 g/dl (12.0-16.0); Imm Gran Abs Auto 0.06 X10*3/uL (0.00-0.03); Imm Gran Pct Auto 0.4 % (0.0-0.4); Lymphocytes Absolute Auto 1.9 X10*3/uL (1.2-4.9); Lymphocytes Percent Auto 13.4 % (20-40); Mean Corpuscular HGB Conc 30.6 g/dl (31.0-35.0); Mean Corpuscular Hemoglobin 26.8 pg (27.0-33.0); Mean Corpuscular Volume 87.5 fL (80.0-98.0); Mean Platelet Volume 9.6 fL (9.4-12.3); Monocytes Absolute Auto 0.2 X10*3/uL (0.1-1.2); Monocytes Percent Auto 1.7 % (2-11); Neutrophils Absolute Auto 11.3 x10*3/uL (2.0-8.3); Neutrophils Percent Auto 81.2 % (45-73); Platelet Count 382 X10*3/uL (160-400); Red Blood Count 4.41 X10*6/uL (4.20-5.50); Red Cell Distribution Width 14.8 % (11.0-16.0); White Blood Count 13.9 X10*3/uL (4.8-10.8)
--- NOTE | 2023-01-18 06:39 | PC.NURSE ---
pt assisted to restroom as standby assist as needed. pt reports 5/10 pain. pt reconnect to IVF once finished in restroom. pt reports no new needs at this time
[2023-01-18 06:44] VITALS: BP 128/66; PULSE 93; RESP 19; TEMP 36.6; O2SAT 95
[2023-01-18 06:45] LABS: Anion Gap 12 (12-20); Blood Urea Nitrogen 8 mg/dL (9-16); Calcium 8.9 mg/dL (8.4-10.2); Carbon Dioxide 24 mmol/L (22-29); Chloride 107 mmol/L (96-108); Creatinine Clr Calc Pharmacy 131.9; Estimated Glomerular Filt Rate > 60; Glucose Random 122 mg/dL (60-115); Potassium 4.7 mmol/L (3.3-5.1); Sodium 138 mmol/L (135-145)
--- NOTE | 2023-01-18 06:45 | P.HPHOSP_ITS ---
History of Present Illness Date of Service: 01/18/23 Chief Complaint: Abd pain 37-year-old female with past medical history of ulcerative colitis, anxiety depression, asthma who presents to the hospital with complaints of abdominal pain that started 3 days ago. Patient reports that she had a recent EGD and colonoscopy in she was told that she is currently suffering from a flare of her ulcerative colitis. She is describing the pain as left upper quadrant, radiating across her abdomen sometimes to the back, associated with nausea with no vomiting, she has had multiple episodes of diarrhea which is going on for several weeks, reports non bloody, no fever no chills, denies alcohol use. No chest pain, no shortness of breath, no urinary symptoms and no lower extremity edema. On arrival to the ED patient hemodynamically stable Labs are significant for WBC count of 16.8, labs otherwise unremarkable, has a lipase of [address] pelvis shows no evidence of bowel obstruction, but there is mild peripancreatic stranding possibly secondary to pancreatitis Patient received pain management in the ED but still continues to have significant pain, she will be admitted for intractable abdominal pain, as well as management of ulcerative colitis Review of Systems Review of Systems: Yes all other systems are reviewed and are negative [facility] Medical History Allergic rhinitis Annual visit for general adult medical examination with abnormal findings Anxiety Anxiety and depression Family history of malignant neoplasm of breast in relative diagnosed when younger than 45 years of age GERD (gastroesophageal reflux disease) Mild intermittent asthma in adult without complication Obesity (BMI 30-39.9) Ulcerative colitis, left sided Family History Father Drug addiction Alcoholism Substance use disorder Mental health disorder Mother History of COPD History of asthma Mental health disorder Maternal Aunt Breast cancer Ovarian cancer Bipolar 1 disorder Maternal Grandfather Colon cancer Brother Drug addiction Alcoholism Substance use disorder Mental health disorder Brother Substance use disorder Mental health disorder Surgical History Hx of [facility] Social History Housing: Apartment Alcohol intake: current Alcohol intake frequency: does not drink Patient Tobacco Use Status: Former Tobacco user Years Smoked: 6 months Smoked in Last 30 Days: No e-Cigarette/Vaping Use: Never Used Use of substances other than those prescribed or required for medical reasons: Yes Substance Use Type: Marijuana Advance Directives: No Advance Directives Information Provided: No Patient : No Current occupational status: employed Gender identity: Female Cognitive needs: No Hearing needs: No Vision needs: No Meds Allergies Allergy/AdvReac Type Severity Reaction Status Date / Time mercaptopurine Allergy Intermediate PANCREATITI Verified 11/12/22 11:29 [MERCAPTOPURINE] S prochlorperazine Allergy Intermediate DYSTONIA Verified 11/12/22 11:29 [From COMPAZINE] clindamycin AdvReac Swelling Verified 11/12/22 11:29 Active Medications: Current Medications Acetaminophen (Acetaminophen 325 Mg Tablet) 650 mg PO Q6H PRN PRN Reason: Pain, Mild (Pain Scale 1-3) Docusate Sodium (Docusate Sodium 100 Mg Capsule) 100 mg PO DAILY PRN PRN Reason: Constipation Lactated Ringer's (Lr) 1,000 mls @ 200 mls/hr IVCONT .Q5H [facility] Last Admin: 01/18/23 06:43 Dose: 200 mls/hr Methylprednisolone Sodium Succinate (Methylprednisolone Sod Succ 40 Mg/Ml Vial) 20 mg IVPUSH Q8H [facility] Last Admin: 01/18/23 02:26 Dose: Not Given Morphine Sulfate (Morphine Sulfate 4 Mg/Ml Cartridge) 4 mg IVPUSH Q4H PRN; Protocol PRN Reason: Pain, Severe (Pain Scale 7-10) Last Admin: 01/18/23 03:34 Dose: 4 mg Ondansetron HCl (Ondansetron Hcl 4 Mg/2 Ml Vial) 4 mg IVPUSH Q8H PRN PRN Reason: Nausea and Vomiting Sodium Chloride (0.9 % Sodium Chloride Flush 3 Ml Syringe) 3 ml IVFLUSH QSHIFT [facility] Home Medications Medication Instructions Recorded Confirmed Last Taken Type lansoprazole 30 mg capsule,delayed 30 mg PO DAILY 12/01/20 05/26/22 Unknown History release mesalamine 1.2 gram tablet,delayed g PO 12/01/20 05/26/22 Unknown History release vedolizumab 300 mg intravenous 0 mg IV 12/01/20 05/26/22 Unknown History solution ondansetron HCl 4 mg tablet 4 mg PO Q8H PRN Nausea 02/10/23 Unknown History spironolactone 100 mg tablet 100 mg PO QAM acne 11/12/22 Unknown History Physical Exam Vital Signs and Narrative: Vital Signs: Last Vital Signs Temp 97.8 F 01/18/23 06:44 Pulse 93 01/18/23 06:44 Resp 19 01/18/23 06:44 BP 128/66 01/18/23 06:44 Pulse Ox 95 01/18/23 06:44 O2 Del Method Room Air 01/18/23 06:44 BMI result Body Mass Index 41.5 Const: General: cooperative and no acute distress Orien tation/consciousness: patient oriented x3 Eyes: General: appearance normal, both eyes and all related structures Pupils: Equal, round and reactive pupils present Resp: Effort & Inspection: normal respiratory effort Auscultation: clear to auscultation bilaterally Cardio: Rate: regular rate Rhythm: regular rhythm GI: Other: Abdomen is soft, diffusely tender, worse in the epigastric and left upper quadrant, no rebound or guarding Palpation (GI): Soft to palpation Auscultation: normal bowel sounds Skin: General skin exam: no rashes or lesions noted Neuro: General: patient oriented x3 Cranial nerves: Yes Equal, round and reactive pupils present Cognition (Neuro): normal cognition Extrem: General: Yes normal to inspection and Yes no pedal edema Results Labs 01/18/23 05:34 01/17/23 19:33 Labs: Laboratory Results - last 24 hr 01/17/23 01/17/23 01/17/23 19:33 19:33 19:33 MCV 86.8 MCH 27.2 MCHC 31.4 RDW 14.8 Plt Count 427 H MPV 9.3 L Immature Gran % (Auto) 0.2 Neut % (Auto) 61.6 Lymph % (Auto) 24.0 [place] % (Auto) 5.2 Eos % (Auto) 8.6 H Baso % (Auto) 0.4 Lymph # (Auto) 4.0 [place] # (Auto) 0.9 Eos # (Auto) 1.4 H Baso # (Auto) 0.1 Abs Immat Gran (auto) 0.04 H Absolute Neuts (auto) 10.4 H Absolute Nucleated RBC 0.000 Nucleated RBC % (auto) 0.0 Anion Gap 18 Estim Creat Clear Calc 128.5 Estimated GFR > 60 Random Glucose 90 Calcium 9.7 Magnesium 2.0 Total Bilirubin 0.6 Direct Bilirubin 0.1 AST 19 ALT 24 Alkaline Phosphatase 115 Total Protein 7.9 Albumin 4.3 Triglycerides 129 Lipase 118 H Beta HCG, Quant < 2 Urine Color Urine Appearance Urine pH Ur Specific [place] Urine Protein Urine Glucose (UA) Urine Ketones Urine Blood Urine Nitrite Ur Leukocyte Esterase Urine Test 01/17/23 01/17/23 01/18/23 19:56 19:56 05:34 MCV 87.5 MCH 26.8 L MCHC 30.6 L RDW 14.8 Plt Count 382 MPV 9.6 Immature Gran % (Auto) 0.4 Neut % (Auto) 81.2 H Lymph % (Auto) 13.4 L [place] % (Auto) 1.7 L Eos % (Auto) 3.0 Baso % (Auto) 0.3 Lymph # (Auto) 1.9 [place] # (Auto) 0.2 Eos # (Auto) 0.4 Baso # (Auto) 0.0 Abs Immat Gran (auto) 0.06 H Absolute Neuts (auto) 11.3 H Absolute Nucleated RBC 0.000 Nucleated RBC % (auto) 0.0 Anion Gap Estim Creat Clear Calc Estimated GFR Random Glucose Calcium Magnesium Total Bilirubin Direct Bilirubin AST ALT Alkaline Phosphatase Total Protein Albumin Triglycerides Lipase Beta HCG, Quant Urine Color Yellow Urine Appearance Clear Urine pH 5.5 Ur Specific [place] 1.025 Urine Protein Negative Urine Glucose (UA) Negative Urine Ketones 40 Urine Blood Negative Urine Nitrite Negative Ur Leukocyte Esterase Negative Urine Test NEGATIVE Imaging Radiologist's Impressions: Impressions Abdomen/Pelvis CT 01/18/23 00:00 IMPRESSION: Mild peripancreatic stranding, suspicious for mild sequelae of pancreatitis. Assessment and Plan (1) Abdominal pain: Status: Acute (2) Ulcerative colitis: Status: Acute (3) Acute pancreatitis: Status: Acute Plan 37-year-old female with history of ulcerative colitis presents the hospital abdominal pain # acute abdominal pain - likely secondary to acute pancreatitis versus ulcerative colitis flare - patient being started on steroids, IV fluids, pain control - supportive measures # ulcerative colitis - states that she has been in a flare for several weeks - on chronic treatment - will give several doses of steroids - will need follow-up outpatient with her GI doctor # acute pancreatitis - lipase slightly elevated, has typical abdominal pain, with CT evidence of peripancreatic stranding - unclear etiology, patient has no evidence of LFT abnormality, no CT evidence of cholelithiasis, or CBD abnormality, and no elevated triglycerides, does not drink alcohol - will treat with IV fluids, pain control DVT prophylaxis: Early ambulation Time Spent With Patient Time: Total time managing care of this patient today ____ minutes. Quality Stroke Does the patient have a stroke diagnosis?: No VTE Prior VTE?: No VTE Risk Level:: Medical - low VTE Device Contraindication: N/A - Device Ordered VTE Drug Contraindication: Treatment Not Indicated
[2023-01-18 07:27] VITALS: BP 107/59; PULSE 87; RESP 17; TEMP 36.9; O2SAT 95
--- NOTE | 2023-01-18 07:59 | PC.NURSE ---
[facility]aiting callback [facility]
[2023-01-18] MEDS: methylPREDNISolone Sod Succ 40 MG/ML VIAL 20 MG IVPUSH ×2 (09:19→16:38)
[2023-01-18 09:23] VITALS: BP 130/82; PULSE 89; RESP 20; TEMP 36.7; O2SAT 97
[2023-01-18] MEDS: ondansetron HCL 4 MG/2 ML VIAL IVPUSH ×2 (09:26→19:40)
--- NOTE | 2023-01-18 09:33 | PHA.MEDREC ---
Pharmacy Consult ? Medication Reconciliation Pharmacy has completed the medication reconciliation.
[2023-01-18 12:00] LABS: C Reactive Protein 2.78 mg/dL (< or = 0.50)
[2023-01-18 12:25] LABS: Erythrocyte Sedimentation Rate 53 MM/HR (0-20)
--- NOTE | 2023-01-18 12:27 | PM.EVENT ---
Event Note Date of Service: 01/18/23 Event Note: Seen and evaluated Feels mild improvement to start liquid diet monitor for fever or chills no other overnight events Time Spent With Patient Time: Total time managing care of this patient today ____ minutes.
--- NOTE | 2023-01-18 14:40 | MHC.CM.PN ---
pt lives alone is indepedent cm intervention is not needed dc p;an home no servceis
[2023-01-18 15:27] VITALS: BP 113/59; PULSE 80; RESP 18; TEMP 36.2; O2SAT 94
[2023-01-18 19:40] VITALS: BP 136/84; PULSE 99; RESP 20; TEMP 36.3; O2SAT 99
[2023-01-18] MEDS: Escitalopram Oxalate 10 MG TABLET PO (19:40)
[2023-01-18] MEDS: Loratadine 10 MG TABLET PO (19:40)
[2023-01-19] MEDS: methylPREDNISolone Sod Succ 40 MG/ML VIAL 20 MG IVPUSH ×3 (02:08→16:13)
[2023-01-19] MEDS: Lactated Ringers 1,000 ML 200 ML IVCONT ×2 (02:09→07:47)
[2023-01-19 02:38] VITALS: BP 122/68; PULSE 98; RESP 16; TEMP 36.2; O2SAT 97
[2023-01-19] MEDS: Morphine Sulfate 4 MG/ML CARTRIDGE IVPUSH ×4 (03:12→18:16)
[2023-01-19] MEDS: ondansetron HCL 4 MG/2 ML VIAL IVPUSH ×2 (03:13→12:48)
[2023-01-19 06:31] LABS: Hematocrit 36.1 % (37.0-47.0); Hemoglobin 11.5 g/dl (12.0-16.0); Mean Corpuscular HGB Conc 31.9 g/dl (31.0-35.0); Mean Corpuscular Hemoglobin 28.1 pg (27.0-33.0); Mean Corpuscular Volume 88.3 fL (80.0-98.0); Platelet Count 391 X10*3/uL (160-400); Red Blood Count 4.09 X10*6/uL (4.20-5.50); Red Cell Distribution Width 14.8 % (11.0-16.0); White Blood Count 14.9 X10*3/uL (4.8-10.8)
[2023-01-19 06:49] LABS: Alanine Aminotransferase 17 U/L (0-31); Albumin Level 3.4 g/dL (3.5-5.0); Alkaline Phosphatase 90 U/L (39-117); Anion Gap 12 (12-20); Aspartate Amino Transferase 10 U/L (5-31); Bilirubin Direct 0.1 mg/dL (0.0-0.5); Bilirubin Total 0.3 mg/dL (0.0-1.0); Blood Urea Nitrogen 4 mg/dL (9-16); Calcium 9.1 mg/dL (8.4-10.2); Carbon Dioxide 23 mmol/L (22-29); Chloride 109 mmol/L (96-108); Creatinine Clr Calc Pharmacy 139.5; Estimated Glomerular Filt Rate > 60; Glucose Random 132 mg/dL (60-115); Potassium 4.3 mmol/L (3.3-5.1); Sodium 140 mmol/L (135-145); Total Protein 6.2 g/dL (6.5-8.0)
[2023-01-19 07:08] VITALS: BP 109/58; PULSE 96; RESP 20; TEMP 36.8; O2SAT 96
[2023-01-19] MEDS: Spironolactone 25 MG TABLET 100 MG PO (07:44)
[2023-01-19] MEDS: Montelukast Sodium 10 MG TABLET PO (07:44)
[2023-01-19] MEDS: Multivitamin TABLET 1 TAB PO (07:44)
[2023-01-19] MEDS: Cholecalciferol (Vitamin D3) 25 MCG TABLET 125 MCG PO (07:44)
--- NOTE | 2023-01-19 11:23 | P.PNIM_ITS ---
Subjective Subjective Date of Service: 01/19/23 Interval History: Seen and evaluated having overall abdominal pain but no vomiting able to tolerate liquid diet no other overnight events Physical Exam Vital Signs: Vital Signs: Last Vital Signs Temp 98.3 F 01/19/23 07:08 Pulse 96 01/19/23 07:08 Resp 20 01/19/23 07:08 BP 109/58 L 01/19/23 07:08 Pulse Ox 96 01/19/23 07:08 O2 Del Method Room Air 01/19/23 07:08 BMI result Body Mass Index 41.5 Const: Other: Constitutional : Awake, interactive, not in distress Neck : Normal inspection, Supple Cardiovascular : RRR, no JVP, no lower extremity edema Respiratory : good bilateral air entry, no crackles, wheezes or rhonchi Gastrointestinal: soft, lax, Normal bowel sounds, mild generalized tenderness mainly epigastric Skin : Warm, Dry Neurological : Alert & oriented x3, No focal deficit Objective Data Active Medications Acetaminophen (Acetaminophen 325 Mg Tablet) 650 mg PO Q6H PRN PRN Reason: Pain, Mild (Pain Scale 1-3) Albuterol Sulfate (Albuterol Sulfate 90 Mcg 8 Gm Inhaler) 2 puff INHALE Q4H PRN PRN Reason: wheezing Docusate Sodium (Docusate Sodium 100 Mg Capsule) 100 mg PO DAILY PRN PRN Reason: Constipation Escitalopram Oxalate (Escitalopram Oxalate 10 Mg Tablet) 10 mg PO BEDTIME [facility] Last Admin: 01/18/23 19:40 Dose: 10 mg Documented By: LINDA Fluticasone Propionate (Fluticasone Propionate Nasal 16 Gm [place]) 1 spray NOSTR IL-B BEDTIME [facility] Last Admin: 01/18/23 21:52 Dose: Not Given Documented By: LINDA Non-Admin Reason: Patient Refused Lactated Ringer's (Lr) 1,000 mls @ 125 mls/hr IVCONT .Q8H [facility] Last Infusion: 01/19/23 09:04 Dose: 125 mls/hr Documented By: GEO Loratadine (Loratadine 10 Mg Tablet) 10 mg PO BEDTIME [facility] Last Admin: 01/18/23 19:40 Dose: 10 mg Documented By: LINDA Methylprednisolone Sodium Succinate (Methylprednisolone Sod Succ 40 Mg/Ml Vial) 20 mg IVPUSH Q8H [facility] Last Admin: 01/19/23 07:44 Dose: 20 mg Documented By: GEO Montelukast Sodium (Montelukast Sodium 10 Mg Tablet) 10 mg PO DAILY [facility] Last Admin: 01/19/23 07:44 Dose: 10 mg Documented By: GEO Morphine Sulfate (Morphine Sulfate 4 Mg/Ml Cartridge) 4 mg IVPUSH Q4H PRN; Protocol PRN Reason: Pain, Severe (Pain Scale 7-10) Last Admin: 01/19/23 07:43 Dose: 4 mg Documented By: GEO Multivitamins/Vitamin C (Multivitamin Tablet) 1 tab PO DAILY [facility] Last Admin: 01/19/23 07:44 Dose: 1 tab Documented By: GEO Pt Own ( Beclomethasone Dipropionate [Qvar Redihaler] 80 Mcg/Actuation Hf 4 inhalation INHALE RBID [facility] Last Admin: 01/19/23 08:36 Dose: 4 inhalation Documented By: GEO Pt Own (Mesalamine 1 .2 Gram Tablet, Delayed Release (Dr/Ec)) 4.8 gm PO DAILY [facility] Last Admin: 01/19/23 08:35 Dose: 4.8 gm Documented By: GEO Pt Own (Lansoprazole Dr 30 Mg Capsules 30 Mg) 30 mg PO DAILY PRN PRN Reason: ACID REFLUX Ondansetron HCl (Ondansetron Hcl 4 Mg/2 Ml Vial) 4 mg IVPUSH Q8H PRN PRN Reason: Nausea and Vomiting Last Admin: 01/19/23 03:13 Dose: 4 mg Documented By: LINDA Sodium Chloride (0.9 % Sodium Chloride Flush 3 Ml Syringe) [facility] Admin: 01/19/23 08:36 Dose: Not Given Documented By: GEO Non-Admin Reason: IV Running Spironolactone (Spironolactone 25 Mg Tablet) 100 mg PO DAILY [facility]; Protocol Last Admin: 01/19/23 07:44 Dose: 100 mg Documented By: GEO Vitamin D (Cholecalciferol (Vitamin D3) 25 Mcg Tablet) 125 mcg PO DAILY [facility] Last Admin: 01/19/23 07:44 Dose: 125 mcg Documented By: GEO Labs 01/19/23 05:57 01/19/23 05:57 Labs: Laboratory Results - last 24 hr 01/18/23 01/18/23 01/19/23 05:34 05:34 05:57 MCV 88.3 MCH 28.1 MCHC 31.9 RDW 14.8 Plt Count 391 MPV 10.0 Absolute Nucleated RBC 0.000 Nucleated RBC % (auto) 0.0 ESR 53 H Anion Gap Estim Creat Clear Calc Estimated GFR Random Glucose Calcium Total Bilirubin Direct Bilirubin AST ALT Alkaline Phosphatase C-Reactive Protein 2.78 H Total Protein Albumin 01/19/23 01/19/23 05:57 05:57 MCV MCH MCHC RDW Plt Count MPV Absolute Nucleated RBC Nucleated RBC % (auto) ESR Anion Gap 12 Estim Creat Clear Calc 139.5 Estimated GFR > 60 Random Glucose 132 H Calcium 9.1 Total Bilirubin 0.3 Direct Bilirubin 0.1 AST 10 ALT 17 Alkaline Phosphatase 90 C-Reactive Protein Total Protein 6.2 L Albumin 3.4 L Assessment and Plan (1) Acute pancreatitis: Status: Acute (2) Abdominal pain: Status: Acute (3) Ulcerative colitis: Status: Acute Plan 37-year-old female with history of ulcerative colitis presents the hospital abdominal pain # acute abdominal pain secondary to acute pancreatitis and ulcerative colitis flare Elevated ESR and CRP CT evidence of peripancreatic stranding Continue steroids, IV fluids, pain control supportive measures to follow up with her GI as OP to discuss the treatment plan for UC. pain control Advance diet as tolerated DVT prophylaxis: Early ambulation Patient will need to stay overnight for treatment of acute pancreatitis and UC flare up pending improvement in pain and PO intake Time Spent With Patient Time: Total time managing care of this patient today ____ minutes. Quality Stroke Does the patient have a stroke diagnosis?: No VTE Prior VTE?: No VTE Risk Level:: Medical - low VTE Device Contraindication: N/A - Device Ordered VTE Drug Contraindication: Treatment Not Indicated
--- NOTE | 2023-01-19 13:48 | MHC.CM.PN ---
PER MD ROUNDS, PLAN IS HOME TUESDAY - SELF CARE
[2023-01-19] MEDS: Lactated Ringers 1,000 ML 125 ML IVCONT ×2 (14:38→21:51)
[2023-01-19 16:00] VITALS: BP 129/84; PULSE 73; RESP 18; TEMP 36.1; O2SAT 99
[2023-01-19] MEDS: 0.9 % Sodium Chloride Flush 3 ML SYRINGE IVFLUSH (16:13)
[2023-01-19 19:27] VITALS: BP 128/61; PULSE 82; RESP 16; TEMP 36.7; O2SAT 96
[2023-01-19] MEDS: Escitalopram Oxalate 10 MG TABLET PO (21:26)
[2023-01-19] MEDS: Loratadine 10 MG TABLET PO (21:26)
[2023-01-19] MEDS: Fluticasone Propionate Nasal 16 GM SPRAY 1 SPRAY NOSTRIL-B (21:50)
[2023-01-20] MEDS: 0.9 % Sodium Chloride Flush 3 ML SYRINGE IVFLUSH (00:13)
[2023-01-20] MEDS: Lactated Ringers 1,000 ML 125 ML IVCONT ×3 (00:14→17:45)
[2023-01-20] MEDS: methylPREDNISolone Sod Succ 40 MG/ML VIAL 20 MG IVPUSH ×3 (00:14→17:44)
[2023-01-20] MEDS: Morphine Sulfate 4 MG/ML CARTRIDGE IVPUSH (00:24)
[2023-01-20] MEDS: ondansetron HCL 4 MG/2 ML VIAL IVPUSH (00:24)
[2023-01-20 03:26] VITALS: BP 124/70; PULSE 83; RESP 17; TEMP 36.1; O2SAT 96
[2023-01-20 06:57] LABS: C Reactive Protein 0.42 mg/dL (< or = 0.50)
[2023-01-20 07:01] LABS: Anion Gap 12 (12-20); Blood Urea Nitrogen 4 mg/dL (9-16); Calcium 9.1 mg/dL (8.4-10.2); Carbon Dioxide 28 mmol/L (22-29); Chloride 106 mmol/L (96-108); Creatinine Clr Calc Pharmacy 130.2; Estimated Glomerular Filt Rate > 60; Glucose Random 125 mg/dL (60-115); Potassium 4.1 mmol/L (3.3-5.1); Sodium 142 mmol/L (135-145)
[2023-01-20 07:26] LABS: Erythrocyte Sedimentation Rate 44 MM/HR (0-20)
[2023-01-20 07:53] VITALS: BP 119/70; PULSE 78; RESP 17; TEMP 36.6; O2SAT 98
[2023-01-20] MEDS: Multivitamin TABLET 1 TAB PO (08:56)
[2023-01-20] MEDS: Cholecalciferol (Vitamin D3) 25 MCG TABLET 125 MCG PO (08:56)
[2023-01-20] MEDS: Spironolactone 25 MG TABLET 100 MG PO (08:56)
[2023-01-20] MEDS: Montelukast Sodium 10 MG TABLET PO (08:56)
--- NOTE | 2023-01-20 14:35 | P.PNIM_ITS ---
Subjective Subjective Date of Service: 01/20/23 Interval History: Seen and evaluated improved overall abdominal pain with no vomiting able to tolerate liquid diet, will advance no other overnight events Review of Systems Review of Systems: Yes all other systems are reviewed and are negative Physical Exam Vital Signs: Vital Signs: Last Vital Signs Temp 97.8 F 01/20/23 07:53 Pulse 78 01/20/23 07:53 Resp 17 01/20/23 07:53 BP 119/70 01/20/23 07:53 Pulse Ox 98 01/20/23 07:53 O2 Del Method Room Air 01/20/23 07:53 BMI result Body Mass Index 41.5 Const: Other: Constitutional : Awake, interactive, not in distress Neck : Normal inspection, Supple Cardiovascular : RRR, no JVP, no lower extremity edema Respiratory : good bilateral air entry, no crackles, wheezes or rhonchi Gastrointestinal: soft, lax, Normal bowel sounds, mild generalized tenderness mainly epigastric Skin : Warm, Dry Neurological : Alert & oriented x3, No focal deficit Objective Data Active Medications Acetaminophen (Acetaminophen 325 Mg Tablet) 650 mg PO Q6H PRN PRN Reason: Pain, Mild (Pain Scale 1-3) Albuterol Sulfate (Albuterol Sulfate 90 Mcg 8 Gm Inhaler) 2 puff INHALE Q4H PRN PRN Reason: wheezing Docusate Sodium (Docusate Sodium 100 Mg Capsule) 100 mg PO DAILY PRN PRN Reason: Constipation Escitalopram Oxalate (Escitalopram Oxalate 10 Mg Tablet) 10 mg PO BEDTIME [facility] Last Admin: 01/19/23 21:26 Dose: 10 mg Documented By: KEATON Fluticasone Propionate (Fluticasone Propionate Nasal 16 Gm [place]) 1 spray NOSTRIL-B BEDTIME [facility] Last Admin: 01/19/23 21:50 Dose: 1 spray Documented By: KEATON Lactated Ringer's (Lr) 1,000 mls @ 125 mls/hr IVCONT .Q8H [facility] Last Admin: 01/20/23 09:00 Dose: 125 mls/hr Documented By: ANANT Loratadine (Loratadine 10 Mg Tablet) 10 mg PO BEDTIME [facility] Last Admin: 01/19/23 21:26 Dose: 10 mg Documented By: KEATON Methylprednisolone Sodium Succinate (Methylprednisolone Sod Succ 40 Mg/Ml Vial) 20 mg IVPUSH Q8H [facility] Last Admin: 01/20/23 08:57 Dose: 20 mg Documented By: ANANT Montelukast Sodium (Montelukast Sodium 10 Mg Tablet) 10 mg PO DAILY [facility] Last Admin: 01/20/23 08:56 Dose: 10 mg Documented By: ANANT Morphine Sulfate (Morphine Sulfate 4 Mg/Ml Cartridge) 4 mg IVPUSH Q4H PRN; Protocol PRN Reason: Pain, Severe (Pain Scale 7-10) Last Admin: 01/20/23 00:24 Dose: 4 mg Documented By: MANPREET Multivitamins/Vitamin C (Multivitamin Tablet) 1 tab PO DAILY [facility] Last Admin: 01/20/23 08:56 Dose: 1 tab Documented By: ANANT Pt Own ( Beclomethasone Dipropionate [Qvar Redihaler] 80 Mcg/Actuation Hf 4 inhalation INHALE RBID [facility] Last Admin: 01/20/23 09:48 Dose: 4 inhalation Documented By: ANANT Pt Own (Mesalamine 1 .2 Gram Tablet, Delayed Release (Dr/Ec)) 4.8 gm PO DAILY [facility] Last Admin: 01/20/23 09:00 Dose: 4.8 gm Documented By: ANANT Mcgraw Own (Lansoprazole Dr 30 Mg Capsules 30 Mg) 30 mg PO DAILY PRN PRN Reason: ACID REFLUX Last Admin: 01/20/23 09:47 Dose: 30 mg Documented By: ANANT Ondansetron HCl (Ondansetron Hcl 4 Mg/2 Ml Vial) 4 mg IVPUSH Q8H PRN PRN Reason: Nausea and Vomiting Last Admin: 01/20/23 00:24 Dose: 4 mg Documented By: MANPREET Sodium Chloride (0.9 % Sodium Chloride Flush 3 Ml Syringe) 3 ml IVFLUSH QSHIFT [facility] Last Admin: 01/20/23 07:33 Dose: Not Given Documented By: ANANT Non-Admin Reason: IV Running Spironolactone (Spironolactone 25 Mg Tablet) 100 mg PO DAILY [facility]; Protocol Last Admin: 01/20/23 08:56 Dose: 100 mg Documented By: ANANT Vitamin D (Cholecalciferol (Vitamin D3) 25 Mcg Tablet) 125 mcg PO DAILY [facility] Last Admin: 01/20/23 08:56 Dose: 125 mcg Documented By: ANANT Labs 01/19/23 05:57 01/20/23 05:53 Labs: Laboratory Results - last 24 hr 01/20/23 01/20/23 01/20/23 05:53 05:53 05:53 ESR 44 H Anion Gap 12 Estim Creat Clear Calc 130.2 Estimated GFR > 60 Random Glucose 125 H Calcium 9.1 C-Reactive Protein 0.42 Assessment and Plan (1) Acute pancreatitis: Status: Acute (2) Ulcerative colitis: Status: Acute Plan 37-year-old female with history of ulcerative colitis presents the hospital abdominal pain # acute abdominal pain secondary to acute pancreatitis and ulcerative colitis flare trending down ESR and CRP CT evidence of peripancreatic stranding Continue steroids, IV fluids, pain control supportive measures pain control Advance diet to regular To discharge on tapering dose steroids with plan to follow with her GI as OP to discuss the [facility] treatment plan for UC DVT prophylaxis: Early ambulation Patient will need to stay overnight for treatment of acute pancreatitis and UC flare up pending improvement in pain and PO intake Time Spent With Patient Time: Total time managing care of this patient today ____ minutes. Quality Stroke Does the patient have a stroke diagnosis?: No VTE Prior VTE?: No VTE Risk Level:: Medical - low VTE Device Contraindication: N/A - Device Ordered VTE Drug Contraindication: Treatment Not Indicated
[2023-01-20 15:55] VITALS: BP 128/71; PULSE 100; RESP 14; TEMP 36.1; O2SAT 96
[2023-01-20] MEDS: polyethylene glycoL 3350 17 GM POWD.PACK PO (17:45)
[2023-01-20 19:44] VITALS: BP 156/93; PULSE 87; RESP 16; TEMP 36.1; O2SAT 97
[2023-01-20] MEDS: Fluticasone Propionate Nasal 16 GM SPRAY 1 SPRAY NOSTRIL-B (19:54)
[2023-01-20] MEDS: Escitalopram Oxalate 10 MG TABLET PO (19:55)
[2023-01-20] MEDS: Loratadine 10 MG TABLET PO (19:55)
[2023-01-21] MEDS: methylPREDNISolone Sod Succ 40 MG/ML VIAL 20 MG IVPUSH ×2 (01:16→08:03)
[2023-01-21] MEDS: Lactated Ringers 1,000 ML 125 ML IVCONT (01:18)
[2023-01-21 03:39] VITALS: BP 125/78; PULSE 81; RESP 18; TEMP 36.6; O2SAT 96
[2023-01-21 07:43] VITALS: BP 123/77; PULSE 81; RESP 18; TEMP 36.1; O2SAT 95
[2023-01-21] MEDS: 0.9 % Sodium Chloride Flush 3 ML SYRINGE IVFLUSH (08:03)
[2023-01-21] MEDS: Montelukast Sodium 10 MG TABLET PO (08:03)
[2023-01-21] MEDS: polyethylene glycoL 3350 17 GM POWD.PACK PO (08:03)
[2023-01-21] MEDS: Spironolactone 25 MG TABLET 100 MG PO (08:03)
[2023-01-21] MEDS: Cholecalciferol (Vitamin D3) 25 MCG TABLET 125 MCG PO (08:04)
[2023-01-21] MEDS: Multivitamin TABLET 1 TAB PO (08:05)
--- NOTE | 2023-01-21 09:08 | P.DS_ITS ---
DS: Providers Provider Date of Service: 01/21/23 Date of admission: 01/18/23 01:24 Primary care physician: Mar Edwards MD DS: Diagnosis Discharge Diagnosis (1) Acute pancreatitis: Status: Acute (2) Ulcerative colitis: Status: Acute DS: Summary Hospital Course Hospital Course: Chief Complaint: Abd pain 37-year-old female with past medical history of ulcerative colitis, anxiety depression, asthma who presents to the hospital with complaints of abdominal pain that started 3 days ago.? Patient reports that she had a recent EGD and colonoscopy in she was told that she is currently suffering from a flare of her ulcerative colitis.? She is describing the pain as left upper quadrant, radiating across her abdomen sometimes to the back, associated with nausea with no vomiting, she has had multiple episodes of diarrhea which is going on for several weeks, reports non bloody, no fever no chills, denies alcohol use.? No chest pain, no shortness of breath, no urinary symptoms and no lower extremity edema.? On arrival to the ED patient hemodynamically stable Labs are significant for WBC count of 16.8, labs otherwise unremarkable, has a lipase of [address] pelvis shows no evidence of bowel obstruction, but there is mild peripancreatic stranding possibly secondary to pancreatitis Patient received pain management in the ED but still continues to have significant pain, she will be admitted for intractable abdominal pain, as well as management of ulcerative colitis Hospital course: Patient with history of UC with recent flare presented with abdominal pain and found to have acute pancreatitis by lipase level of [address] finding consitent with pancreatitis. She was treated with conservatively with hydration, pain medication, steroid for possible flare of UC and over the course of hospitalization, abdominal has near all resolved. Diet has been advanced from liquid to presetly reglar diet which she is tolerating and will thus be discharge home, prednsione for possibl ulcerative colitis flare for few more days and to to follow up with GI doctor. Weight loss advise for morid obesity as Time Spent with Patient Time attestation: Total time managing care of this patient today ____ minutes. Discharge coordination time: Greater than 30 minutes Quality: Safe Use of Opioids Does Pt have an Active Cancer Diagnosis on the Problem List?: No Quality: Stroke Does the patient have a stroke diagnosis?: No Physical Exam Vital Signs: Vital Signs: Last Vital Signs Temp 97.0 F 04/21/23 07:43 Pulse 81 01/21/23 07:43 Resp 18 01/21/23 07:43 BP 123/77 01/21/23 07:43 Pulse Ox 95 01/21/23 07:43 O2 Del Method Room Air 01/21/23 07:43 BMI result Body Mass Index 41.5 Discharge Plan Discharge Anticipated Discharge Date/Time: 01/21/23 09:06 Patient Disposition: Home, Self-Care Discharge Diagnosis: Acute pancreatitis, Referrals: Mar Edwards MD [Primary Care Provider] - 1 Week Discharge Medications: New prednisone 10 mg tablet See Taper PO DIRECTED Qty: 9 0RF Taper: Prednisone 20 mg daily for 3 Days and 0 Hour 10 mg daily for 3 Days and 0 Hour Rx Instructions: see taper instructions Continued montelukast 10 mg tablet 10 mg PO DAILY Qty: 90 1RF fexofenadine 60 mg tablet 60 mg PO BEDTIME spironolactone 100 mg tablet 100 mg PO DAILY lansoprazole 30 mg capsule,delayed release(DR/EC) 30 mg PO DAILY PRN (Reason: Acid Reflux) albuterol sulfate 90 mcg/actuation HFA aerosol inhaler 2 puff inhalation Q4H PRN (Reason: wheezing) escitalopram oxalate 10 mg tablet 10 mg PO BEDTIME mesalamine 1.2 gram tablet,delayed release (DR/EC) 4.8 g PO DAILY Entyvio 300 mg recon soln IV Qvar RediHaler 80 mcg/actuation HFA aerosol breath activated 4 inh inhalation Q12H fluticasone propionate 50 mcg/actuation [place],Suspension 1 spray INTRANASAL BEDTIME Rx Instructions: administer into each nostril multivitamin Tablet 1 tab PO DAILY vitamin B complex Tablet 1 tab PO DAILY cholecalciferol (vitamin D3) 125 mcg (5,000 unit) Tablet 125 mcg PO DAILY Discharge Orders: Discharge Order (Routine); Ordered 01/21/23 Ordered By: Blade Acuna Diet: Advance to usual diet Activity on Discharge: As tolerated Stand Alone Forms: Patient Portal Discharge page, Work/School Release Care Plan Goals: full recovery Health Concerns: pancreatitis ulcerative colitis Plan of Treatment: Take prednisone as directed and follow up with your docotor and gi doctor within a week, call for apointment Assessment: as above Discharge Date/Time: 01/21/23 12:28
--- NOTE | 2023-01-21 09:36 | MHC.CM.PN ---
PATIENT IS DC HOME - SELF CARE RN AWARE
== END 2023-01-21 12:28 | disposition home or self-care (01) ==
LOC: HO.ED 01-18 01:29 → HO.EDOVER 01-18 01:38 → HO.S3 01-18 07:37
PROVIDERS: Emergency Medicine; Physician Assistant; Student in an Organized Health Care Education/Training Program; Admitting Provider Internal Medicine; Emergency Provider Emergency Medicine; PCP Internal Medicine; Visit Provider Internal Medicine
DX: K85.90 Acute pancreatitis without necrosis or infection, unspecified (principal); K51.90 Ulcerative colitis, unspecified, without complications; R10.13 Epigastric pain; E78.5 Hyperlipidemia, unspecified; E66.9 Obesity, unspecified; Z68.41 Body mass index [BMI] 40.0-44.9, adult; Z79.899 Other long term (current) drug therapy
CPT/HCPCS: 36415; 74177; 80048; 80076; 81003; 81025; 83690; 83735; 84478; 84702; 85025; 85027; 85652; 86140; 96361; 96365; 96367; 96374; 96375; 96376; 99221; 99285; J1956; J2270; J2405; J2920; J2930; Q9967

== ENCOUNTER 2023-02-15 | Outpatient (REF) | payer OTHER, SELFPAY ==
[2023-02-23 22:19] LABS: Calprotectin, Fecal 371 mcg/g
== END 2023-02-15 00:01 | disposition home or self-care (01) ==
LOC: HO.LNP
PROVIDERS: Visit Provider Nurse Practitioner Gerontology
DX: Z13.89 Encounter for screening for other disorder (principal)
CPT/HCPCS: 83993

== ENCOUNTER 2023-02-16 08:40 | Outpatient (REF) | payer OTHER, SELFPAY ==
[2023-02-18 04:02] LABS: HBS Num1 > 1000.00 mIU/mL (0-7.99); HBc Num1 0.12 S/CO (0.00-0.79); HBsAGNum1 0.31 S/CO (0.00-0.99); Hepatitis A Antibody IgM 0.19 Index (0-0.79); Hepatitis B Core Antibody Nonreactive (Nonreactive); Hepatitis B Surface Antigen Negative (Negative); ~Hepatitis A Antibody IgM Nonreactive (Nonreactive); ~Hepatitis B Surface Antibody REACTIVE (Nonreactive); ~Hepatitis C Antibody Nonreactive (Nonreactive)
[2023-02-18 14:53] LABS: TS Negative Control Passed; TS Panel A 1; TS Panel B 0; TS Positive Control Passed; TSpotTB Negative (Negative)
== END 2023-02-16 08:41 | disposition home or self-care (01) ==
LOC: HO.HMGCLDS 08:40
PROVIDERS: PCP Internal Medicine; Visit Provider Internal Medicine Gastroenterology
DX: Z11.1 Encounter for screening for respiratory tuberculosis (principal); K51.80 Other ulcerative colitis without complications
CPT/HCPCS: 36415; 86481; 86704; 86706; 86709; 86803; 87340

== ENCOUNTER 2023-03-10 10:30 | Emergency (ER) | payer OTHER, SELFPAY ==
--- NOTE | 2023-03-10 | ECG_ITS ---
Test Reason : tachycardia Blood Pressure : / mmHG Vent. Rate : 119 BPM Atrial Rate : 119 BPM P-R Int : 112 ms QRS Dur : 070 ms QT Int : 310 ms P-R-T Axes : 050 023 004 degrees QTc Int : 436 ms Sinus tachycardia Otherwise normal ECG No previous ECGs available Referred By: Generic ED Physician Electronically Signed By:Zack Howard
--- NOTE | ~2023-03-10 | XR_ITS ---
EXAMINATION: XR ABDOMEN COMPLETE CLINICAL INDICATION: Acute abdominal pain. COMPARISON: Abdomen CT from 0 01/17/2023 TECHNIQUE: 2 views of the abdomen. FINDINGS: Lung bases are normal. No acute findings within the abdomen. Gas is seen within normal sized loops of bowel. No evidence of pneumatosis intestinalis or pneumoperitoneum. No evidence of renal stones. A few phleboliths are present within the lower pelvis. 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 XR/XR abdomen min 2V IMPRESSION: No specific cause of acute abdominal pain is seen. No evidence of bowel obstruction.
[2023-03-10 10:42] VITALS: BP 149/108; PULSE 120; RESP 18; TEMP 36.8; O2SAT 96; BMI 40.0
[2023-03-10 10:59] VITALS: BP 159/95; PULSE 116; RESP 18; TEMP 36.9; O2SAT 96
--- NOTE | 2023-03-10 11:06 | PC.NURSE ---
Alert and oriented. statess 10/10 abdominal pain that has been going on for a few weeks. States last large bm was tuesday after taking laxatives but has had smaller incomplete bm`s through the week. States vomited last night and is nauseous. positive bowel sounds x 4. denies chest pain or sob. States last laxative was last evening and has had some diarrhea since.
--- NOTE | 2023-03-10 11:40 | ED_ITS ---
HPI - Abdominal Pain General Chief Complaint: Abdominal Pain Stated Complaint: abd pain Time Seen by Provider: 03/10/23 11:02 Source: patient Mode of arrival: ambulatory Limitations: no limitations History of Present Illness MD elicited complaint: abdominal pain Pertinent past history: constipation Onset (ago): day(s) (4) Pain Consistency: constant Location: LUQ and LLQ Severity: severe Quality: cramping and aching Radiation: none Migration to: no migration Exacerbating factors: nothing Relieving factors: bowel movement Associated symptoms: nausea, vomiting and constipation Treatments prior to arrival: other Related Data Home Medications Medication Instructions Recorded Confirmed albuterol sulfate 90 mcg/actuation 2 puff inhalation Q4H PRN wheezing 01/18/23 01/18/23 aerosol inhaler beclomethasone dipropionate 80 4 inh inhalation Q12H 01/18/23 01/18/23 mcg/actuation HFA breath activated aerosol (Qvar RediHaler) cholecalciferol (vitamin D3) 125 125 mcg PO DAILY 01/18/23 01/18/23 mcg (5,000 unit) tablet escitalopram oxalate 10 mg tablet 10 mg PO BEDTIME 01/18/23 01/18/23 fexofenadine 60 mg tablet 60 mg PO BEDTIME 01/18/23 01/18/23 fluticasone propionate 50 1 spray intranasal BEDTIME 01/18/23 01/18/23 mcg/actuation nasal spray,suspension lansoprazole 30 mg capsule,delayed 30 mg PO DAILY PRN Acid Reflux 01/18/23 01/18/23 release mesalamine 1.2 gram tablet,delayed 4.8 g PO DAILY 01/18/23 01/18/23 release multivitamin 1 tab PO DAILY 01/18/23 01/18/23 spironolactone 100 mg tablet 100 mg PO DAILY 01/18/23 01/18/23 vedolizumab 300 mg intravenous mg IV 01/18/23 solution (Entyvio) vitamin B complex 1 tab PO DAILY 01/18/23 01/18/23 Previous Rx's Medication Instructions Recorded montelukast 10 mg tablet 10 mg PO DAILY #90 tabs 12/19/22 prednisone 10 mg tablet See Taper PO DIRECTED #9 tabs 01/21/23 dicyclomine 20 mg tablet 20 mg PO QID #30 tabs 03/10/23 hydrocortisone 2.5 % topical cream 1 appl [place] DAILY PRN hemorrhoids 03/10/23 with perineal applicator #30 grams (Anusol-HC) Allergies Allergy/AdvReac Type Severity Reaction Status Date / Time mercaptopurine Allergy Intermediate PANCREATITI Verified 03/10/23 10:41 [MERCAPTOPURINE] S prochlorperazine Allergy Intermediate DYSTONIA Verified 03/10/23 10:41 [From COMPAZINE] clindamycin AdvReac Swelling Verified 03/10/23 10:41 Review of Systems Review of Systems CONSTITUTIONAL: Denies weight loss, fever and chills. HEENT: Denies changes in vision and hearing. RESPIRATORY: Denies SOB and cough. CV: Denies palpitations no CP. GI: + abdominal pain, nausea, vomiting no diarrhea. : Denies dysuria and urinary frequency. MSK: Denies myalgia and joint pain. SKIN: Denies rash and pruritus. NEUROLOGICAL: Denies headache and syncope. PSYCHIATRIC: Denies recent changes in mood. Denies anxiety and depression. All other ROS are negative unless in HPI PMFSH Past Medical History Medical History Allergic rhinitis Annual visit for general adult medical examination with abnormal findings Anxiety Anxiety and depression Family history of malignant neoplasm of breast in relative diagnosed when younger than 45 years of age GERD (gastroesophageal reflux disease) Mild intermittent asthma in adult without complication Obesity (BMI 30-39.9) Ulcerative colitis, left sided Surgical History Hx of LASIK Family History Family History Father Drug addiction Alcoholism Substance use disorder Mental health disorder Mother History of COPD History of asthma Mental health disorder Maternal Aunt Breast cancer Ovarian cancer Bipolar 1 disorder Maternal Grandfather Colon cancer Brother Drug addiction Alcoholism Substance use disorder Mental health disorder Brother Substance use disorder Mental health disorder Social History Social History Household Members: None Housing: Apartment Alcohol intake: never Patient Tobacco Use Status: Former Tobacco user Years Smoked: 6 months Smoked in Last 30 Days: No e-Cigarette/Vaping Use: Never Used Use of substances other than those prescribed or required for medical reasons: Yes Substance Use Type: Marijuana Substance Use Type Other:: EDIBLES Advance Directives: No Advance Directives Information Provided: Yes service: No Current occupational status: employed Gender identity: Female Cognitive needs: No Hearing needs: No Vision needs: No Physical Exam ED Vital Signs: Vital Signs - 24 hr 03/10/23 10:42 03/10/23 10:59 03/10/23 12:48 Temperature 98.2 F 98.4 F Pulse Rate 120 H 116 H 96 Respiratory Rate 18 18 18 Blood Pressure 149/108 H 159/95 H 123/85 Pulse Oximetry 96 96 100 Oxygen Delivery Method Room Air Room Air Room Air BMI result Body Mass Index 40.0 GEN: Well developed, no acute distress, alert, oriented HEENT: Normocephalic, atraumatic, normal external ears, nose appears normal, no oropharyngeal edema or exudates Eyes: Normal to appearance Neck: Supple, no lymphadenopathy Respiratory: Talks in complete sentences, no respiratory distress, clear to auscultation bilaterally Cardiovascular: Regular rate and rhythm, no murmurs rubs or gallops Abdomen: Soft, nontender, nondistended, no guarding, no rebound Back: No CVA tenderness Extremities: No clubbing cyanosis or edema Neurologic: No focal neurologic deficits, cranial nerves 2-12 intact, strength is 5/5 bilaterally Skin: No rash Course Course Course Narrative: 37-year-old female presents with left-sided abdominal pain, constipation. Examination was benign without rebound or guarding. She has no history of surg eries. Will obtain x-ray to rule ileus, small bowel obstruction. Based on laboratory analysis, re-evaluate disposition plan. Patient will likely be able to go home. Reevaluation(s) Reevaluation #1: Discussed all results with patient. X-ray does not reveal any obstruction, ileus. Will prescribe a course of action to help patient with her symptoms. Patient was given strict return instructions. Time: 13:43 Medical Decision Making Medical Decision Making MDM Narrative: 37-year-old female with history of colitis presents with left-sided abdominal pain and constipation. She has had nausea vomiting. She does report some blood in stool. She does describes her symptoms as being different from her she has a colitis flare up. Examination of her abdomen was soft and nontender, no rebound or guarding. She had no CVA tenderness. The original diagnosis could include IBD, IBS, constipation, colitis, diverticulitis, transit, bacterial overgrowth. Will obtain x-ray to rule out ileus or small-bowel obstruction will provide the patient with antiemetics, analgesics and IV fluids. Will re-evaluate the patient. Differential Diagnosis Differential Diagnoses: The differential diagnosis associated with the presentation includes (See above) Admission/Observation Consideration of admission/observation: Escalation of care including admission/observation considered Lab Data MDM Lab Attestation statement: I reviewed the patient's lab results. 03/10/23 11:41 03/10/23 11:41 Labs: Lab Results 03/10/23 03/10/23 03/10/23 Range/Units 11:41 11:41 11:41 WBC 11.7 H (4.8-10.8) X10*3/uL RBC 4.47 (4.20-5.50) X10*6/uL Hgb 11.9 L (12.0-16.0) g/dl Hct 37.8 (37.0-47.0) % MCV 84.6 (80.0-98.0) fL MCH 26.6 L (27.0-33.0) pg MCHC 31.5 (31.0-35.0) g/dl RDW 14.6 (11.0-16.0) % Plt Count 494 H D (160-400) X10*3/uL MPV 9.4 (9.4-12.3) fL Immature Gran % (Auto) 0.3 (0.0-0.4) % Neut % (Auto) 60.2 (45-73) % Lymph % (Auto) 22.9 (20-40) % [place] % (Auto) 4.8 (2-11) % Eos % (Auto) 11.3 H (0-4) % Baso % (Auto) 0.5 (0-2) % Lymph # (Auto) 2.7 (1.2-4.9) X10*3/uL [place] # (Auto) 0.6 (0.1-1.2) X10*3/uL Eos # (Auto) 1.3 H (0.0-0.4) X10*3/uL Baso # (Auto) 0.1 (0.0-0.2) X10*3/uL Abs Immat Gran (auto) 0.03 (0.00-0.03) X10*3/uL Absolute Neuts (auto) 7.0 (2.0-8.3) x10*3/uL Absolute Nucleated RBC 0.000 (0.0-0.012) X10*3/uL Nucleated RBC % (auto) 0.0 (0.0-0.2) /100WBC Sodium 139 (135-145) mmol/L Potassium 4.1 (3.3-5.1) mmol/L Chloride 107 (96-108) mmol/L Carbon Dioxide 23 (22-29) mmol/L Anion Gap 13 (12-20) BUN 7 L (9-16) mg/dL Creatinine 0.78 (0.5-1.4) mg/dL Estim Creat Clear Calc 122.4 Estimated GFR > 60 Random Glucose 107 (60-115) mg/dL Calcium 9.6 (8.4-10.2) mg/dL Total Bilirubin 0.5 (0.0-1.0) mg/dL AST 16 (5-31) U/L ALT 23 (0-31) U/L Alkaline Phosphatase 101 (39-117) U/L Total Protein 7.5 (6.5-8.0) g/dL Albumin 4.0 (3.5-5.0) g/dL Urine Color Dark Yellow Urine Appearance Cloudy Urine pH 7.0 (5.0-9.0) Ur Specific [place] >= 1.030 H (1.005-1.025) Urine Protein 30 (1+) H (Neg-Trace) mg/dL Urine Glucose (UA) Negative (Negative) mg/dL Urine Ketones 80 (Negative) mg/dL Urine Blood Negative (Negative) Urine Nitrite Negative (Negative) Ur Leukocyte Esterase Small (1+) H (Negative) Urine RBC 3-5 H (0-2) /HPF Urine WBC 6-10 H (0-5) /HPF Ur Squamous Epith Cells 11-20 (0-2) /HPF Urine Bacteria 1+ (None Seen) Hyaline Casts 0-2 (0-2) /LPF Urine Test (NEGATIVE) 03/10/23 Range/Units 11:41 WBC (4.8-10.8) X10*3/uL RBC (4.20-5.50) X10*6/uL Hgb (12.0-16.0) g/dl Hct (37.0-47.0) % MCV (80.0-98.0) fL MCH (27.0-33.0) pg MCHC (31.0-35.0) g/dl RDW (11.0-16.0) % Plt Count (160-400) X10*3/uL MPV (9.4-12.3) fL Immature Gran % (Auto) (0.0-0.4) % Neut % (Auto) (45-73) % Lymph % (Auto) (20-40) % [place] % (Auto) (2-11) % Eos % (Auto) (0-4) % Baso % (Auto) (0-2) % Lymph # (Auto) (1.2-4.9) X10*3/uL [place] # (Auto) (0.1-1.2) X10*3/uL Eos # (Auto) (0.0-0.4) X10*3/uL Baso # (Auto) (0.0-0.2) X10*3/uL Abs Immat Gran (auto) (0.00-0.03) X10*3/uL Absolute Neuts (auto) (2.0-8.3) x10*3/uL Absolute Nucleated RBC (0.0-0.012) X10*3/uL Nucleated RBC % (auto) (0.0-0.2) /100WBC Sodium (135-145) mmol/L Potassium (3.3-5.1) mmol/L Chloride (96-108) mmol/L Carbon Dioxide (22-29) mmol/L Anion Gap (12-20) BUN (9-16) mg/dL Creatinine (0.5-1.4) mg/dL Estim Creat Clear Calc Estimated GFR Random Glucose (60-115) mg/dL Calcium (8.4-10.2) mg/dL Total Bilirubin (0.0-1.0) mg/dL AST (5-31) U/L ALT (0-31) U/L Alkaline Phosphatase (39-117) U/L Total Protein (6.5-8.0) g/dL Albumin (3.5-5.0) g/dL Urine Color Urine Appearance Urine pH (5.0-9.0) Ur Specific [place] (1.005-1.025) Urine Protein (Neg-Trace) mg/dL Urine Glucose (UA) (Negative) mg/dL Urine Ketones (Negative) mg/dL Urine Blood (Negative) Urine Nitrite (Negative) Ur Leukocyte Esterase (Negative) Urine RBC (0-2) /HPF Urine WBC (0-5) /HPF Ur Squamous Epith Cells (0-2) /HPF Urine Bacteria (None Seen) Hyaline Casts (0-2) /LPF Urine Test NEGATIVE (NEGATIVE) Independent Interpretation I performed an independent interpretation of an: EKG (Sinus tachycardia heart rate 119, no acute ST elevations depressions, normal intervals) and Plain X-Ray Prescription Management I considered prescription management with: Pain Medication Medications Administered Discontinued Medications Generic Name Dose Route Start Last Admin Trade Name Freq PRN Reason Stop Dose Admin Sodium Chloride 1,000 mls @ 999 mls/hr 03/10/23 11:30 03/10/23 12:47 Ns IV 03/10/23 12:30 Infused .Q1H1M ANANYA Infusion Ketorolac Tromethamine 15 mg 03/10/23 11:20 03/10/23 11:45 Ketorolac Tromethamine 15 Mg/Ml Vial IVPUSH 03/10/23 11:21 15 mg ONCE ONE Administration Discharge Plan Discharge Clinical Impression: Constipation, Abdominal pain Patient Disposition: Home, Self-Care Instructions: Constipation (ED), Abdominal Pain (ED) Additional Instructions: For constipation, I am recommending the following regimen: MiraLax 1 capfulIn 8 oz water daily Senokot take as recommended on instructions Fiber supplementation such as Benefiber, Metamucil, Citrucel Drink 2 L of water daily Magnesium citrate 150 mL daily as needed until desired effect Glycerin suppositories daily as needed Dicyclomine 20 mg 30 minutes before eating in 30 minutes before bed Prescriptions: New dicyclomine 20 mg tablet 20 mg PO QID Qty: 30 0RF Rx Instructions: One tablet 30 minutes before eating and 1 tablet before bed hydrocortisone [Anusol-HC] 2.5 % cream with perineal applicator 1 appl [place] DAILY PRN (Reason: hemorrhoids) Qty: 30 0RF No Action montelukast 10 mg tablet 10 mg PO DAILY Qty: 90 1RF fexofenadine 60 mg tablet 60 mg PO BEDTIME spironolactone 100 mg tablet 100 mg PO DAILY lansoprazole 30 mg capsule,delayed release(DR/EC) 30 mg PO DAILY PRN (Reason: Acid Reflux) albuterol sulfate 90 mcg/actuation HFA aerosol inhaler 2 puff inhalation Q4H PRN (Reason: wheezing) escitalopram oxalate 10 mg tablet 10 mg PO BEDTIME mesalamine 1.2 gram tablet,delayed release (DR/EC) 4.8 g PO DAILY Entyvio 300 mg recon soln IV Qvar RediHaler 80 mcg/actuation HFA aerosol breath activated 4 inh inhalation Q12H fluticasone propionate 50 mcg/actuation [place],Suspension 1 spray INTRANASAL BEDTIME Rx Instructions: administer into each nostril multivitamin Tablet 1 tab PO DAILY vitamin B complex Tablet 1 tab PO DAILY cholecalciferol (vitamin D3) 125 mcg (5,000 unit) Tablet 125 mcg PO DAILY prednisone 10 mg tablet See Taper PO DIRECTED Qty: 9 0RF Taper: Prednisone 20 mg daily for 3 Days and 0 Hour 10 mg daily for 3 Days and 0 Hour Rx Instructions: see taper instructions Referrals: Mar Edwards MD [Primary Care Provider] - 3 days
[2023-03-10] MEDS: Ketorolac Tromethamine 15 MG/ML VIAL IVPUSH (11:45)
[2023-03-10 11:46] LABS: MANUAL DIFF FLAG NO
[2023-03-10] MEDS: 0.9 % Sodium Chloride 1,000 ML 999 ML IV (11:46)
[2023-03-10 11:47] LABS: Appearance Urine Cloudy; Color Urine Dark Yellow; Glucose Urine UA Negative (Negative); Leukocyte Esterase Urine Small (1+) (Negative); Nitrite Urine Negative (Negative); Specific Gravity - Urine >= 1.030 (1.005-1.025); UMIC TRIGGER UACC YES; Urine Blood Negative (Negative); Urine Ketones 80 mg/dL (Negative); Urine Protein 30 (1+) mg/dL (Neg-Trace)
[2023-03-10 11:48] LABS: Basophils Absolute Auto 0.1 X10*3/uL (0.0-0.2); Basophils Percent Auto 0.5 % (0-2); Eosinophils Absolute Auto 1.3 X10*3/uL (0.0-0.4); Eosinophils Percent Auto 11.3 % (0-4); Hematocrit 37.8 % (37.0-47.0); Hemoglobin 11.9 g/dl (12.0-16.0); Imm Gran Abs Auto 0.03 X10*3/uL (0.00-0.03); Imm Gran Pct Auto 0.3 % (0.0-0.4); Lymphocytes Absolute Auto 2.7 X10*3/uL (1.2-4.9); Lymphocytes Percent Auto 22.9 % (20-40); Mean Corpuscular HGB Conc 31.5 g/dl (31.0-35.0); Mean Corpuscular Hemoglobin 26.6 pg (27.0-33.0); Mean Corpuscular Volume 84.6 fL (80.0-98.0); Mean Platelet Volume 9.4 fL (9.4-12.3); Monocytes Absolute Auto 0.6 X10*3/uL (0.1-1.2); Monocytes Percent Auto 4.8 % (2-11); Neutrophils Percent Auto 60.2 % (45-73); Platelet Count 494 X10*3/uL (160-400); Red Blood Count 4.47 X10*6/uL (4.20-5.50); Red Cell Distribution Width 14.6 % (11.0-16.0); White Blood Count 11.7 X10*3/uL (4.8-10.8)
[2023-03-10 11:49] LABS: UPreg QC Valid YES; Urine Pregnancy NEGATIVE (NEGATIVE)
[2023-03-10 12:04] LABS: Bacteria Urine 1+ (None Seen); Hyaline Casts Urine 0-2 /LPF (0-2); UACC Culture Trigger YES
[2023-03-10 12:05] LABS: Alanine Aminotransferase 23 U/L (0-31); Alkaline Phosphatase 101 U/L (39-117); Anion Gap 13 (12-20); Aspartate Amino Transferase 16 U/L (5-31); Bilirubin Total 0.5 mg/dL (0.0-1.0); Blood Urea Nitrogen 7 mg/dL (9-16); Calcium 9.6 mg/dL (8.4-10.2); Carbon Dioxide 23 mmol/L (22-29); Chloride 107 mmol/L (96-108); Creatinine Clr Calc Pharmacy 122.4; Estimated Glomerular Filt Rate > 60; Glucose Random 107 mg/dL (60-115); Potassium 4.1 mmol/L (3.3-5.1); Sodium 139 mmol/L (135-145); Total Protein 7.5 g/dL (6.5-8.0)
[2023-03-10 12:48] VITALS: BP 123/85; PULSE 96; RESP 18; O2SAT 100
--- NOTE | 2023-03-10 12:49 | PC.NURSE ---
Alert and oriented. Reports pain medication did not touch her pain. VSS. Fluids completed.
--- NOTE | 2023-03-10 13:55 | PC.NURSE ---
Alert and oriented. Reports feeling better after fluids and medication. Reviewed home bowel regimen and patient verbalized understanding
== END 2023-03-10 13:55 | disposition home or self-care (01) ==
PROVIDERS: Emergency Provider Emergency Medicine; PCP Internal Medicine
DX: K59.00 Constipation, unspecified (principal); R10.9 Unspecified abdominal pain; E78.5 Hyperlipidemia, unspecified; Z79.899 Other long term (current) drug therapy
CPT/HCPCS: 36415; 74019; 80053; 81001; 81025; 85025; 87086; 93005; 96361; 96374; 99284; 99285; J1885

== ENCOUNTER 2023-04-26 01:28 | Emergency (ER) | payer OTHER, SELFPAY ==
--- NOTE | ~2023-04-26 | US_ITS ---
EXAMINATION: US ABDOMEN LIMITED CLINICAL INFORMATION: Right upper quadrant pain. COMPARISON: None available. TECHNIQUE: Real-time imaging of the right upper quadrant abdominal viscera. FINDINGS: PANCREAS: Normal. LIVER: Normal. The liver is normal in size. The liver contour is normal. Parenchymal echogenicity is normal. No focal hepatic lesion. There is no intrahepatic biliary duct dilatation seen. GALLBLADDER: Normal. The gallbladder is physiologically distended without evidence of stones, sludge, polyps, wall thickening or pericholecystic fluid. COMMON BILE DUCT: Normal in caliber measuring 0.6 cm in diameter. RIGHT KIDNEY: Normal. No hydronephrosis. No renal calculi or focal parenchymal lesions. The kidney measures 10.6 cm in maximum dimension. FREE FLUID: None. US/US abdomen limited IMPRESSION: Unremarkable study.
[2023-04-26 01:39] VITALS: BP 142/81; PULSE 120; RESP 20; TEMP 36.1; O2SAT 98
[2023-04-26 02:03] LABS: Appearance Urine Cloudy; Color Urine Dark Yellow; Glucose Urine UA Negative (Negative); Leukocyte Esterase Urine Small (1+) (Negative); Nitrite Urine Negative (Negative); PH 5.5 (5.0-9.0); Specific Gravity - Urine >= 1.030 (1.005-1.025); UMIC TRIGGER UACC YES; Urine Blood Negative (Negative); Urine Ketones 80 mg/dL (Negative); Urine Protein 30 (1+) mg/dL (Neg-Trace)
[2023-04-26 02:03] LABS: Delay - Chemistry DELAY
[2023-04-26 02:06] LABS: UPreg QC Valid YES; Urine Pregnancy NEGATIVE (NEGATIVE)
[2023-04-26 02:08] LABS: Hematocrit 37.9 % (37.0-47.0); Hemoglobin 11.7 g/dl (12.0-16.0); Mean Corpuscular HGB Conc 30.9 g/dl (31.0-35.0); Mean Corpuscular Hemoglobin 24.9 pg (27.0-33.0); Mean Corpuscular Volume 80.8 fL (80.0-98.0); Mean Platelet Volume 9.2 fL (9.4-12.3); Platelet Count 522 X10*3/uL (160-400); Red Blood Count 4.69 X10*6/uL (4.20-5.50); Red Cell Distribution Width 15.4 % (11.0-16.0); White Blood Count 19.1 X10*3/uL (4.8-10.8)
[2023-04-26 02:19] LABS: Bacteria Urine 1+ (None Seen); Calcium Oxalate Crystals Urine Present; Hyaline Casts Urine 0-2 /LPF (0-2); UACC Culture Trigger YES; WBC Urine 0-5 /HPF (0-5)
[2023-04-26 03:12] VITALS: BP 138/96; PULSE 115; RESP 18; TEMP 37.3; O2SAT 97
--- NOTE | 2023-04-26 03:39 | ED_ITS ---
HPI - Abdominal Pain General Chief Complaint: Abdominal Pain Stated Complaint: Abd pain /N/V Time Seen by Provider: 04/26/23 03:39 Source: patient Mode of arrival: ambulatory Limitations: no limitations History of Present Illness HPI narrative: Patient history of ulcerative colitis on Entyvio infusion with acalculous biliary colic head MRI 3 days ago was negative seen the reference library assistant today for the nausea vomiting, right upper quadrant pain for 3 days no fever no chills no urinary symptoms patient able to hold down anything for last 24 hours because of pain and vomiting no urinary symptoms patient was admitted here on 01/23 for similar noted to have mild pancreatitis patient was seen by reference library assistant earlier today, plan to see surgeon as outpatient Related Data Home Medications Medication Instructions Recorded Confirmed beclomethasone dipropionate 80 4 inh inhalation Q12H 01/18/23 01/18/23 mcg/actuation HFA breath activated aerosol (Qvar RediHaler) cholecalciferol (vitamin D3) 125 125 mcg PO DAILY 01/18/23 01/18/23 mcg (5,000 unit) tablet escitalopram oxalate 10 mg tablet 10 mg PO BEDTIME 01/18/23 01/18/23 fexofenadine 60 mg tablet 60 mg PO BEDTIME 01/18/23 01/18/23 fluticasone propionate 50 1 spray intranasal BEDTIME 01/18/23 01/18/23 mcg/actuation nasal spray,suspension lansoprazole 30 mg capsule,delayed 30 mg PO DAILY PRN Acid Reflux 01/18/23 01/18/23 release mesalamine 1.2 gram tablet,delayed 4.8 g PO DAILY 01/18/23 01/18/23 release multivitamin 1 tab PO DAILY 01/18/23 01/18/23 spironolactone 100 mg tablet 100 mg PO DAILY 01/18/23 01/18/23 vedolizumab 300 mg intravenous mg IV 01/18/23 solution (Entyvio) vitamin B complex 1 tab PO DAILY 01/18/23 01/18/23 Previous Rx's Medication Instructions Recorded montelukast 10 mg tablet 10 mg PO DAILY #90 tabs 12/19/22 prednisone 10 mg tablet See Taper PO DIRECTED #9 tabs 01/21/23 dicyclomine 20 mg tablet 20 mg PO QID #30 tabs 03/10/23 hydrocortisone 2.5 % topical cream [address] DAILY PRN hemorrhoids 03/10/23 with perineal applicator #30 grams (Anusol-HC) albuterol sulfate 90 mcg/actuation 2 puff inhalation Q4H PRN wheezing 03/18/23 aerosol inhaler #8.5 grams ondansetron 4 mg disintegrating 4 mg PO Q6-8H PRN nausea and 04/26/23 tablet vomiting #7 tabs oxycodone 5 mg tablet 5 mg PO Q6H PRN pain #20 tabs 04/26/23 Allergies Allergy/AdvReac Type Severity Reaction Status Date / Time mercaptopurine Allergy Intermediate PANCREATITI Verified 04/26/23 01:43 [MERCAPTOPURINE] S prochlorperazine Allergy Intermediate DYSTONIA Verified 04/26/23 01:43 [From COMPAZINE] clindamycin AdvReac Swelling Verified 04/26/23 01:43 Review of Systems Review of Systems Yes all other systems are reviewed and are negative PMFSH Past Medical History Medical History Allergic rhinitis Annual visit for general adult medical examination with abnormal findings Anxiety Anxiety and depression Family history of malignant neoplasm of breast in relative diagnosed when younger than 45 years of age GERD (gastroesophageal reflux disease) Mild intermittent asthma in adult without complication Obesity (BMI 30-39.9) Ulcerative colitis, left sided Surgical History Hx of LASIK Family History Family History Father Drug addiction Alcoholism Substance use disorder Mental health disorder Mother History of COPD History of asthma Mental health disorder Maternal Aunt Breast cancer Ovarian cancer Bipolar 1 disorder Maternal Grandfather Colon cancer Brother Drug addiction Alcoholism Substance use disorder Mental health disorder Brother Substance use disorder Mental health disorder Social History Social History Household Members: None Housing: Apartment Alcohol intake: never Patient Tobacco Use Status: Former Tobacco user Years Smoked: 6 months Smoked in Last 30 Days: No e-Cigarette/Vaping Use: Never Used Use of substances other than those prescribed or required for medical reasons: Yes Substance Use Type: Marijuana Substance Use Frequency: Occasionally Advance Directives: No Advance Directives Information Provided: Yes Patient : No service: No Current occupational status: employed Gender identity: Female Cognitive needs: No Hearing needs: No Vision needs: No Physical Exam ED Vital Signs: Vital Signs - 24 hr 04/26/23 01:39 04/26/23 03:12 04/26/23 05:35 Temperature 97 F 99.1 F 98.7 F Pulse Rate 120 H 115 H 86 Respiratory Rate 20 18 18 Blood Pressure 142/81 H 138/96 H 143/90 H Pulse Oximetry 98 97 99 Oxygen Delivery Method Room Air Room Air BMI result Body Mass Index 0.0 Appearance: Alert. Oriented X3. No acute distress. Eyes: PERRLA, No Nystagmus ENT: Pharynx normal. Oral Mucosa moist Neck: Normal inspection. Neck supple. CVS: Normal heart rate and rhythm. Pulses normal. Respiratory: No respiratory distress. Equal air entry bilateral, no wheezing/rales/rhonchi Abdomen: Soft and tenderness right upper quadrant with guarding no rebound tenderness. Bowel sounds are present, no mass palpable, no CVA tenderness Skin: Skin warm and dry. Normal skin color. Normal skin turgor. Extremities: No lower extremity edema. No calf tenderness Neuro: Oriented X 3. No motor deficit. Medical Decision Making Medical Decision Making [facility] Narrative: Patient with chronic abdominal pain with workup negative so far had MRI of abdomen 3 days ago which was also negative ultrasound done here in the ER shows empty gallbladder without any findings of cholecystitis patient had leukocytosis likely from leukemoid reaction with fluid loss at this time patient feeling much better will discharge patient home advised to follow up with her surgeon and PCP? May need HIDA scan as outpatient Differential Diagnosis Differential Diagnoses: The differential diagnosis associated with the presentation includes Acute cholecystitis/pancreatitis/small bowel obstructions/colitis Lab Data [facility] Lab Attestation statement: I reviewed the patient's lab results. 04/26/23 01:44 04/26/23 01:44 Labs: Lab Results 04/26/23 04/26/23 04/26/23 Range/Units 01:44 01:44 01:44 WBC 19.1 H (4.8-10.8) X10*3/uL RBC 4.69 (4.20-5.50) X10*6/uL Hgb 11.7 L (12.0-16.0) g/dl Hct 37.9 (37.0-47.0) % MCV 80.8 (80.0-98.0) fL MCH 24.9 L (27.0-33.0) pg MCHC 30.9 L (31.0-35.0) g/dl RDW 15.4 (11.0-16.0) % Plt Count 522 H (160-400) X10*3/uL MPV 9.2 L (9.4-12.3) fL Absolute Nucleated RBC 0.000 (0.0-0.012) X10*3/uL Nucleated RBC % (auto) 0.0 (0.0-0.2) /100WBC Sodium 135 (135-145) mmol/L Potassium 3.8 (3.3-5.1) mmol/L Chloride 104 (96-108) mmol/L Carbon Dioxide 21 L (22-29) mmol/L Anion Gap 14 (12-20) BUN 9 (9-16) mg/dL Creatinine 0.80 (0.5-1.4) mg/dL Estim Creat Clear Calc 0.1 Estimated GFR > 60 Random Glucose 132 H (60-115) mg/dL Calcium 9.9 (8.4-10.2) mg/dL Total Bilirubin 0.6 (0.0-1.0) mg/dL AST 14 (5-31) U/L ALT 28 (0-31) U/L Alkaline Phosphatase 129 H (39-117) U/L Total Protein 8.4 H (6.5-8.0) g/dL Albumin 4.3 (3.5-5.0) g/dL Lipase 95 H (8-78) U/L Specimen Comment Urine Color Dark Yellow Urine Appearance Cloudy Urine pH 5.5 (5.0-9.0) Ur Specific Virgin >= 1.030 H (1.005-1.025) Urine Protein 30 (1+) H (Neg-Trace) mg/dL Urine Glucose (UA) Negative (Negative) mg/dL Urine Ketones 80 (Negative) mg/dL Urine Blood Negative (Negative) Urine Nitrite Negative (Negative) Ur Leukocyte Esterase Small (1+) H (Negative) Urine RBC 3-5 H (0-2) /HPF Urine WBC 0-5 (0-5) /HPF Ur Squamous Epith Cells 6-10 (0-2) /HPF Calcium Oxalate Crystal Present Urine Bacteria 1+ (None Seen) Hyaline Casts 0-2 (0-2) /LPF Urine Test (NEGATIVE) 04/26/23 04/26/23 Range/Units 01:44 02:02 WBC (4.8-10.8) X10*3/uL RBC (4.20-5.50) X10*6/uL Hgb (12.0-16.0) g/dl Hct (37.0-47.0) % MCV (80.0-98.0) fL MCH (27.0-33.0) pg MCHC (31.0-35.0) g/dl RDW (11.0-16.0) % Plt Count (160-400) X10*3/uL MPV (9.4-12.3) fL Absolute Nucleated RBC (0.0-0.012) X10*3/uL Nucleated RBC % (auto) (0.0-0.2) /100WBC Sodium (135-145) mmol/L Potassium (3.3-5.1) mmol/L Chloride (96-108) mmol/L Carbon Dioxide (22-29) mmol/L Anion Gap (12-20) BUN (9-16) mg/dL Creatinine (0.5-1.4) mg/dL Estim Creat Clear Calc Estimated GFR Random Glucose (60-115) mg/dL Calcium (8.4-10.2) mg/dL Total Bilirubin (0.0-1.0) mg/dL AST (5-31) U/L ALT (0-31) U/L Alkaline Phosphatase (39-117) U/L Total Protein (6.5-8.0) g/dL Albumin (3.5-5.0) g/dL Lipase (8-78) U/L Specimen Comment DELAY Urine Color Urine Appearance Urine pH (5.0-9.0) Ur Specific Virgin (1.005-1.025) Urine Protein (Neg-Trace) mg/dL Urine Glucose (UA) (Negative) mg/dL Urine Ketones (Negative) mg/dL Urine Blood (Negative) Urine Nitrite (Negative) Ur Leukocyte Esterase (Negative) Urine RBC (0-2) /HPF Urine WBC (0-5) /HPF Ur Squamous Epith Cells (0-2) /HPF Calcium Oxalate Crystal Urine Bacteria (None Seen) Hyaline Casts (0-2) /LPF Urine Test NEGATIVE (NEGATIVE) Medications Administered Discontinued Medications Generic Name Dose Route Start Last Admin Trade Name Freq PRN Reason Stop Dose Admin Sodium Chloride 1,000 mls @ 999 mls/hr 04/26/23 04:27 04/26/23 05:34 Ns IV 04/26/23 05:27 Infused .Q1H1M ONE Infusion Ketorolac Tromethamine 30 mg 04/26/23 05:27 04/26/23 05:30 Ketorolac Tromethamine 30 Mg/Ml Vial IVPUSH 04/26/23 05:28 30 mg ONCE ONE Administration Morphine Sulfate 4 mg 04/26/23 04:27 04/26/23 04:34 Morphine Sulfate 4 Mg/Ml Cartridge IVPUSH 04/26/23 04:28 4 mg ONCE ONE Administration Protocol Ondansetron HCl 4 mg 04/26/23 04:27 04/26/23 04:34 Ondansetron Hcl 4 Mg/2 Ml Vial IVPUSH 04/26/23 04:28 4 mg ONCE ONE Administration Discharge Plan Discharge Clinical Impression: Biliary colic Patient Disposition: Home, Self-Care Instructions: Biliary Colic (ED) Additional Instructions: Clear liquids advanced slowly as advised Take pain medication and nausea medication as prescribed Follow-up with your surgeon for further evaluation Prescriptions: New ondansetron 4 mg tablet,disintegrating 4 mg PO Q6-8H PRN (Reason: nausea and vomiting) Qty: 7 0RF oxycodone 5 mg tablet 5 mg PO Q6H PRN (Reason: pain) Qty: 20 0RF Rx Instructions: Partial Fill upon patient request. No Action montelukast 10 mg tablet 10 mg PO DAILY Qty: 90 1RF albuterol sulfate 90 mcg/actuation HFA aerosol inhaler 2 puff inhalation Q4H PRN (Reason: wheezing) Qty: 8.5 1RF fexofenadine 60 mg tablet 60 mg PO BEDTIME spironolactone 100 mg tablet 100 mg PO DAILY lansoprazole 30 mg capsule,delayed release(DR/EC) 30 mg PO DAILY PRN (Reason: Acid Reflux) escitalopram oxalate 10 mg tablet 10 mg PO BEDTIME mesalamine 1.2 gram tablet,delayed release (DR/EC) 4.8 g PO DAILY Entyvio 300 mg recon soln IV Qvar RediHaler 80 mcg/actuation HFA aerosol breath activated 4 inh inhalation Q12H fluticasone propionate 50 mcg/actuation [place],Suspension 1 spray INTRANASAL BEDTIME Rx Instructions: administer into each nostril multivitamin Tablet 1 tab PO DAILY vitamin B complex Tablet 1 tab PO DAILY cholecalciferol (vitamin D3) 125 mcg (5,000 unit) Tablet 125 mcg PO DAILY prednisone 10 mg tablet See Taper PO DIRECTED Qty: 9 0RF Taper: Prednisone 20 mg daily for 3 Days and 0 Hour 10 mg daily for 3 Days and 0 Hour Rx Instructions: see taper instructions dicyclomine 20 mg tablet 20 mg PO QID Qty: 30 0RF Rx Instructions: One tablet 30 minutes before eating and 1 tablet before bed hydrocortisone [Anusol-HC] 2.5 % cream with perineal applicator [address] DAILY PRN (Reason: hemorrhoids) Qty: 30 0RF
[2023-04-26] MEDS: 0.9 % Sodium Chloride 1,000 ML 999 ML IV ×2 (04:34→08:05)
[2023-04-26] MEDS: Morphine Sulfate 4 MG/ML CARTRIDGE IVPUSH (04:34)
[2023-04-26] MEDS: ondansetron HCL 4 MG/2 ML VIAL IVPUSH ×2 (04:34→08:12)
[2023-04-26] MEDS: Ketorolac Tromethamine 30 MG/ML VIAL IVPUSH (05:30)
[2023-04-26 05:35] VITALS: BP 143/90; PULSE 86; RESP 18; TEMP 37.1; O2SAT 99
[2023-04-26 06:24] LABS: Alanine Aminotransferase 28 U/L (0-31); Albumin Level 4.3 g/dL (3.5-5.0); Alkaline Phosphatase 129 U/L (39-117); Anion Gap 14 (12-20); Aspartate Amino Transferase 14 U/L (5-31); Bilirubin Total 0.6 mg/dL (0.0-1.0); Blood Urea Nitrogen 9 mg/dL (9-16); Calcium 9.9 mg/dL (8.4-10.2); Carbon Dioxide 21 mmol/L (22-29); Chloride 104 mmol/L (96-108); Creatinine Clr Calc Pharmacy 0.1; Estimated Glomerular Filt Rate > 60; Glucose Random 132 mg/dL (60-115); Lipase 95 U/L (8-78); Potassium 3.8 mmol/L (3.3-5.1); Sodium 135 mmol/L (135-145); Total Protein 8.4 g/dL (6.5-8.0)
--- NOTE | 2023-04-26 07:34 | PC.NURSE ---
assumed care of pt at 0700. pt resting quietly.
[2023-04-26] MEDS: HYDROmorphone HCl 1 MG/ML SYRINGE IVPUSH (08:12)
--- NOTE | 2023-04-26 08:15 | PC.NURSE ---
fluids hung and meds given per order.
[2023-04-26 08:44] VITALS: BP 121/74; PULSE 84; RESP 14; O2SAT 98
[2023-04-26 10:31] VITALS: BP 122/84; PULSE 78; RESP 17; O2SAT 97
--- NOTE | 2023-04-26 10:34 | PC.NURSE ---
teaching done re low fat and bland diet
== END 2023-04-26 10:34 | disposition home or self-care (01) ==
PROVIDERS: Emergency Provider Internal Medicine; PCP Internal Medicine
DX: K80.50 Calculus of bile duct without cholangitis or cholecystitis without obstruction (principal); R11.2 Nausea with vomiting, unspecified; R10.11 Right upper quadrant pain; F12.90 Cannabis use, unspecified, uncomplicated; Z79.899 Other long term (current) drug therapy
CPT/HCPCS: 36415; 76705; 80053; 81001; 81025; 83690; 85027; 96361; 96374; 96375; 96376; 99284; 99285; J1170; J1885; J2270; J2405

== ENCOUNTER 2023-04-29 15:43 | Inpatient (IN) | payer OTHER, SELFPAY ==
[2023-04-29] VITALS (7 sets, daily range): BP systolic 106–156; BP diastolic 71–104; PULSE 85–117; RESP 16–20; TEMP 36.8–37.1; O2SAT 98–100
--- NOTE | ~2023-04-29 | CT_ITS ---
EXAMINATION: CT abdomen pelvis w IV con CLINICAL INFORMATION: Reason for Exam severe upper ABD pain, N/V, hx pancreatitis COMPARISON: No prior CT available for comparison. TECHNIQUE: Multidetector volumetric imaging was performed from the superior aspect of the liver through the pubic symphysis 85 mL Omnipaque 350 injected Sagittal and coronal reformatted images were obtained on the technologist's workstation. This CT examination was performed using dose optimization techniques as appropriate, variously including the following: *Automated exposure control *Adjustment of mA and/or kV according to patient size (this includes techniques or standardized protocols for targeted exams where dose is matched to indication/reason for exam; i.e. extremities or head) *Use of iterative reconstruction technique DLP: 848 mGy-cm FINDINGS: LOWER THORAX: Included lung bases are clear. HEPATOBILIARY: No focal hepatic lesions. No biliary ductal dilatation. GALLBLADDER: Gallbladder unremarkable. SPLEEN: Spleen is normal in size. PANCREAS: There is peripancreatic fat stranding especially around the head of the pancreas, this pattern is consistent with acute pancreatitis. No evidence of pancreatic necrosis or other complication at this time. No splenic vein thrombosis. STOMACH AND GASTROINTESTINAL TRACT: Stomach is grossly unremarkable. There is no bowel distention or thickening. No CT evidence of appendicitis. ADRENALS: No adrenal nodules. KIDNEYS/URETERS: No hydronephrosis, stones or solid mass lesions. URINARY BLADDER: Partially decompressed. PELVIC VISCERA: There is a right adnexal cyst 3.4 cm there is left adnexal cyst 2.5 cm, in this patient age group this is likely physiologic, no follow-up is required. PERITONEUM: No free air or fluid. LYMPH NODES: No lymphadenopathy. VASCULAR:Abdominal aorta normal in size, no aneurysm found. BONES, ABDOMINAL WALL AND SOFT TISSUES: Age-appropriate changes of the spine and skeletal system, no destructive osteolytic or osteosclerotic bone lesion found CT/CT abdomen pelvis w IV con IMPRESSION: * Peripancreatic fat stranding especially around the head of the pancreas consistent with ACUTE PANCREATITIS. No evidence of pancreatic necrosis or other complication at this time. Bilateral adnexal cysts, in this patient age group this is likely physiologic, no follow-up is required. Findings are overwhelmingly likely to represent a benign functional cyst. No followup imaging recommended.
--- NOTE | ~2023-04-29 | US_ITS ---
EXAMINATION: US ABDOMEN LIMITED CLINICAL INFORMATION: Recheck gallbladder for evidence of stones or sludge. COMPARISON: CT abdomen and pelvis 04/29/2023. Ultrasound abdomen limited 04/26/2023. TECHNIQUE: Real-time imaging of the right upper quadrant abdominal viscera. FINDINGS: GALLBLADDER: Normal. The gallbladder is physiologically distended without evidence of stones, sludge, polyps, wall thickening or pericholecystic fluid. COMMON BILE DUCT: Normal in caliber measuring 0.3 cm in diameter. US/US abdomen limited IMPRESSION: No cholelithiasis or gallbladder sludge. No biliary ductal dilatation.
--- NOTE | 2023-04-29 15:55 | ED_ITS ---
HPI - General Adult General Chief complaint: Abdominal Pain Stated complaint: severe upper abd pain, N/V Time Seen by Provider: 04/29/23 19:02 Source: patient Mode of arrival: ambulatory Limitations: no limitations History of Present Illness HPI narrative: Patient is a 37-year-old female who presents emergency department for evaluation of persistent and worsening right upper quadrant abdominal pain, she was seen in the emergency department 3 days ago with similar symptoms and reports her pain has become worse since then though no different. She has the history of acalculous biliary colic, reports that she had an outpatient MRI obtained 1 week ago to her [facility] special operations Dr. Ruth which was reportedly normal, and she has an appointment in 5 days to see a general surgeon. She has nausea and vomiting associated with this pain. Denies fevers, chills, lower abdominal pain, constipation, diarrhea, bloody or dark stools, genitourinary symptoms. Related Data Home Medications Medication Instructions Recorded Confirmed beclomethasone dipropionate 80 4 inh inhalation Q12H 01/18/23 04/29/23 mcg/actuation HFA breath activated aerosol (Qvar RediHaler) escitalopram oxalate 10 mg tablet 10 mg PO BEDTIME 01/18/23 04/29/23 fexofenadine 60 mg tablet 60 mg PO BEDTIME 01/18/23 04/29/23 fluticasone propionate 50 1 spray intranasal BEDTIME 01/18/23 04/29/23 mcg/actuation nasal spray,suspension lansoprazole 30 mg capsule,delayed 30 mg PO DAILY 01/18/23 04/29/23 release vedolizumab 300 mg intravenous 300 mg IV Q8W 01/18/23 04/29/23 solution (Entyvio) budesonide 3 mg 9 mg PO QAM 04/29/23 04/29/23 capsule,delayed,extended release mesalamine 1,000 mg rectal 1,000 mg CA BEDTIME PRN gi 04/29/23 04/29/23 suppository irritation plecanatide 3 mg tablet (Trulance) 3 mg PO DAILY 04/29/23 04/29/23 spironolactone 100 mg tablet 100 mg PO QAM acne 04/29/23 04/29/23 Previous Rx's Medication Instructions Recorded montelukast 10 mg tablet 10 mg PO DAILY #90 tabs 12/19/22 hydrocortisone 2.5 % topical cream 1 appl CA DAILY PRN hemorrhoids 03/10/23 with perineal applicator #30 grams (Anusol-HC) albuterol sulfate 90 mcg/actuation 2 puff inhalation Q4H PRN wheezing 03/18/23 aerosol inhaler #8.5 grams ondansetron 4 mg disintegrating 4 mg PO Q6-8H PRN nausea and 04/26/23 tablet vomiting #7 tabs oxycodone 5 mg tablet 5 mg PO Q6H PRN pain #20 tabs 04/26/23 Allergies Allergy/AdvReac Type Severity Reaction Status Date / Time mercaptopurine Allergy Intermediate PANCREATITI Verified 04/29/23 15:56 [MERCAPTOPURINE] S prochlorperazine Allergy Intermediate DYSTONIA Verified 04/29/23 15:56 [From COMPAZINE] clindamycin AdvReac Swelling Verified 04/29/23 15:56 Review of Systems Review of Systems: Constitutional : No Weight loss, No Fever, No Chills ENT/Mouth :? No sore throat, No Rhinorrhea Eyes: No Swelling, No Redness Cardiovascular : No Chest Pain, No SOB, No Edema Respiratory : No Cough, No Sputum, No Wheezing Gastrointestinal : Positive Nausea, Positive Vomiting, no Diarrhea, positive abdominal pain, No Hematochezia, No Melena Genitourinary : No Dysuria, No Urinary Frequency, No Hematuria, No Urgency? Musculoskeletal : No joint pain, No Myalgias, No Joint Swelling Skin : No Skin Lesions, No rash Neuro : No Weakness, No Numbness, No Dizziness, No Headache Psych : No Anxiety/Panic, No Depression Heme/Lymph: No Bruising, No Lymphadenopathy Endocrine : No Polyuria, No Polydipsia Yes all other systems are reviewed and are negative [facility] Past Medical History Attestation statement: The following information was validated with the patient. Source: old records reviewed Medical History Allergic rhinitis Annual visit for general adult medical examination with abnormal findings Anxiety Anxiety and depression Family history of malignant neoplasm of breast in relative diagnosed when younger than 45 years of age GERD (gastroesophageal reflux disease) Mild intermittent asthma in adult without complication Obesity (BMI 30-39.9) Ulcerative colitis, left sided Surgical History Hx of SANDRA Family History Family History Father Drug addiction Alcoholism Substance use disorder Mental health disorder Mother History of COPD History of asthma Mental health disorder Maternal Aunt Breast cancer Ovarian cancer Bipolar 1 disorder Maternal Grandfather Colon cancer Brother Drug addiction Alcoholism Substance use disorder Mental health disorder Brother Substance use disorder Mental health disorder Social History Social History Household Members: None Housing: Apartment Do you presently have visiting nurse or other home services: No Alcohol intake: never Patient Tobacco Use Status: Former Tobacco user Years Smoked: 6 months Smoked in Last 30 Days: No e-Cigarette/Vaping Use: Never Used Use of substances other than those prescribed or required for medical reasons: Yes Substance Use Type: Marijuana Substance Use Type Other:: edibles Substance Use Frequency: Daily Last Used Substance: Days (ago) Have you been hit, kicked, punched, or otherwise hurt by someone within the past year? If so, by whom?: No Do you feel safe in your current relationship?: Yes Is there a partner from a previous relationship who is making you feel unsafe now?: No Advance Directives: No Advance Directives Information Provided: Yes Do you have thoughts of harming others: None Do you have a plan to hurt others: No Plan Recently lost weight without trying: No How much weight loss: Not applicable Eating poorly because of decreased appetite: No Nutrition screen score: 0 Nutrition Risks: No Nutritional Risk Patient : No : No service: No Current occupational status: employed Gender identity: Female Cognitive needs: No Hearing needs: No Vision needs: No Physical Exam ED Vital Signs: Vital Signs - 24 hr 04/29/23 15:56 04/29/23 18:43 04/29/23 20:00 Temperature 98.2 F 98.8 F 98.3 F Pulse Rate 117 H 106 H 114 H Respiratory Rate 18 20 16 Blood Pressure 143/103 H 152/104 H 156/104 H Pulse Oximetry 98 99 100 Oxygen Delivery Method Room Air Room Air Room Air 04/29/23 20:12 04/29/23 21:51 04/29/23 22:06 Temperature 98.6 F Pulse Rate 104 H Respiratory Rate 17 16 18 Blood Pressure 123/81 Pulse Oximetry 98 Oxygen Delivery Method Room Air BMI result Body Mass Index 3.8 Appearance: Alert.?Oriented to person, place and time. No acute distress.?Normal affect. Eyes: Pupils equal, round and reactive to light.? ENT: Pharynx normal.?? Neck: Normal inspection.? Neck supple.?? CVS: Heart sounds normal. Normal heart rate and rhythm.? Pulses normal.?? Respiratory: No respiratory distress.? Lung sounds clear to auscultation bilaterally?? Abdomen: Soft with right upper quadrant tenderness upon palpation, guarding, no rebound tenderness. No CVA tenderness. Normoactive bowel sounds. No pulsatile mass.?? Skin: Skin warm and dry.? Normal skin color.? ?? Extremities: No lower extremity edema. Neuro: Moves all extremities spontaneously. Sensation intact bilaterally. No focal neuro deficits. Ambulates with normal steady gait. Course Course Course Narrative: This is a rapid medical exam: Additional HPI, ROS, PE not included below will be deferred to primary provider. Patient is a 37-year-old female with history of dyslipidemia, GERD, ulcerative colitis, pancreatitis presenting to the emergency department with complaint of severe upper abdominal pain. States began on Tuesday. Came here on Tuesday night, diagnosed with biliary colic. Reports nausea/vomiting this morning. Denies diarrhea. Denies fevers. Plan: EKG, labs, UA Reevaluation(s) Reevaluation #1: CBC revealing a leukocytosis of 16.6 which has decreased from 19.1 3 days ago, LFTs are within normal limits, no significant electrolyte abnormality, lipase is elevated at 102 which is comparable to 95 3 days ago. Urinalysis with WBC and 1+ bacteria, in addition to squamous epithelial cells, asymptomatic, likely skin bharati contamination. severe pain persists despite the use of morphine and Toradol, will trial Dilaudid IV at this time. Reviewed CT A/P perinephric fat stranding consistent with acute pancreatitis without evidence of necrosis, consulted with hospitalist; Dr. Sanchez, patient accepted for admission to medicine service Time: 21:45 Medications Administered Generic Name Dose Route Start Last Admin Trade Name Freq PRN Reason Stop Dose Admin Enoxaparin Sodium 40 mg 04/29/23 23:00 04/30/23 00:21 Enoxaparin Sodium 40 Mg/0.4 Ml Syringe SUBCUT 40 mg Q24H ANANYA Administration Hydromorphone HCl 0.5 mg 04/30/23 02:06 04/30/23 09:50 Hydromorphone Hcl 0.5 Mg/0.5 Ml Syringe IVPUSH 0.5 mg Q4H PRN Administration Pain, Severe (Pain Scale 7-10) Protocol Lactated Ringer's 1,000 mls @ 200 mls/hr 04/30/23 02:15 04/30/23 07:47 Lr IVCONT 200 mls/hr .Q5H ANANYA Administration Montelukast Sodium 10 mg 04/30/23 09:00 04/30/23 07:44 Montelukast Sodium 10 Mg Tablet PO 10 mg DAILY ANANYA Administration Morphine Sulfate 4 mg 04/30/23 02:49 04/30/23 04:05 Morphine Sulfate 4 Mg/Ml Cartridge IVPUSH 4 mg Q4H PRN Administration Pain, Moderate(Pain Scale 4-6) Protocol Patient Own Med ( 4 inhalation 04/30/23 08:30 04/30/23 10:09 Beclomethasone INHALE 4 inhalation Dipropionate [Qvar RBID ANANYA Administration Redihaler] 80 Mcg/ Actuation Hf Patient Own Med ( 9 mg 04/30/23 09:00 04/30/23 10:05 Budesonide 3 Mg PO 9 mg Capsule,Delayed, DAILY ANANYA Administration Extend.Release) Patient Own Med ( 3 mg 04/30/23 09:00 04/30/23 10:05 Plecanatide [ PO 3 mg Trulance] 3 Mg DAILY ANANYA Administration Tablet) Patient Own 30 each 04/30/23 08:15 04/30/23 10:06 Medication ( PO [address] 30 DAILY@0630 ANANYA Administration Mg Capsules) Omeprazole 20 mg 04/30/23 07:00 04/30/23 07:46 Omeprazole [address] PO Not Given DAILY@0630 ANANYA Ondansetron HCl 4 mg 04/29/23 22:38 04/30/23 04:09 Ondansetron Hcl 4 Mg/2 Ml Vial IVPUSH 4 mg Q8H PRN Administration Nausea and Vomiting Oxycodone HCl 5 mg 04/30/23 06:08 04/30/23 07:46 Oxycodone Hcl Immed Release 5 Mg Tablet PO 5 mg Q6H PRN Administration Pain, Mild (Pain Scale 1-3) Sodium Chloride 3 ml 04/30/23 00:00 04/30/23 07:49 0.9 % Sodium Chloride Flush 3 Ml Syringe IVFLUSH 3 ml QSHIFT ANANYA Administration Spironolactone 100 mg 04/30/23 09:00 04/30/23 07:46 Spironolactone 25 Mg Tablet PO 100 mg DAILY ANANYA Administration Protocol Discontinued Medications Generic Name Dose Route Start Last Admin Trade Name Kali PRN Reason Stop Dose Admin Hydromorphone HCl 1 mg 04/29/23 21:42 04/29/23 22:06 Hydromorphone Hcl 1 Mg/Ml Syringe IVPUSH 04/29/23 21:43 1 mg ONCE ONE Administration Protocol Sodium Chloride 1,000 mls @ 999 mls/hr 04/29/23 19:30 04/30/23 01:14 Ns IV 04/29/23 20:30 Infused .Q1H1M ANANYA Infusion Iohexol 85 ml 04/29/23 20:33 04/29/23 20:33 Iohexol 350 Mg/Ml 100 Ml Infus..Btl IV 04/29/23 20:34 85 ml ONCE ONE Administration Ketorolac Tromethamine 30 mg 04/29/23 21:05 04/29/23 21:12 Ketorolac Tromethamine 30 Mg/Ml Vial IVPUSH 04/29/23 21:06 30 mg ONCE ONE Administration Ketorolac Tromethamine 30 mg 04/30/23 05:04 04/30/23 05:23 Ketorolac Tromethamine 30 Mg/Ml Vial IVPUSH 04/30/23 05:05 30 mg ONCE ONE Administration Morphine Sulfate 4 mg 04/29/23 19:28 04/29/23 20:12 Morphine Sulfate 4 Mg/Ml Cartridge IVPUSH 04/29/23 19:29 4 mg ONCE ONE Administration Protocol Morphine Sulfate 4 mg 04/29/23 22:38 04/30/23 00:20 Morphine Sulfate 4 Mg/Ml Cartridge IVPUSH 4 mg Q4H PRN Administration Pain, Severe (Pain Scale 7-10) Protocol Ondansetron HCl 4 mg 04/29/23 19:28 04/29/23 20:12 Ondansetron Hcl 4 Mg/2 Ml Vial IVPUSH 04/29/23 19:29 4 mg ONCE ONE Administration Medical Decision Making Medical Decision Making MDM Narrative: Patient is a 37-year-old female presenting to emergency department for ev aluation of persistent pain as per HPI. At the time my examination she appears significantly uncomfortable, she is hypertensive in tachycardic, with right upper quadrant tenderness and guarding. Will obtain CBC to evaluate for leukocytosis/ anemia, CMP and lipase to evaluate for abnormal electrolytes /abnormal renal function/ abnormal hepatic/biliary function, CT of the abdomen and pelvis and Urinalysis. At this time does not meet SIRS criteria. Differential Diagnosis Differential Diagnoses: The differential diagnosis associated with the presentation includes (Acute cholecystitis, cholelithiasis, pancreatitis, small- bowel obstruction, colitis, GERD, PUD) Admission/Observation Consideration of admission/observation: Escalation of care including admission/observation considered (I considered admission for abdominal pain, see course narrative for further detail.) Lab Data [facility] Lab Attestation statement: I reviewed the patient's lab results. (See course narrative for further detail) 04/29/23 16:15 04/29/23 16:15 Labs: Lab Results 04/29/23 04/29/23 04/29/23 Range/Units 16:15 16:15 16:15 WBC 16.6 H (4.8-10.8) X10*3/uL RBC 4.52 (4.20-5.50) X10*6/uL Hgb 11.3 L (12.0-16.0) g/dl Hct 36.9 L (37.0-47.0) % MCV 81.6 (80.0-98.0) fL MCH 25.0 L (27.0-33.0) pg MCHC 30.6 L (31.0-35.0) g/dl RDW 15.3 (11.0-16.0) % Plt Count 491 H (160-400) X10*3/uL MPV 9.3 L (9.4-12.3) fL Immature Gran % (Auto) 0.3 (0.0-0.4) % Neut % (Auto) 74.3 H (45-73) % Lymph % (Auto) 14.4 L (20-40) % [place] % (Auto) 5.0 (2-11) % Eos % (Auto) 5.6 H (0-4) % Baso % (Auto) 0.4 (0-2) % Lymph # (Auto) 2.4 (1.2-4.9) X10*3/uL [place] # (Auto) 0.8 (0.1-1.2) X10*3/uL Eos # (Auto) 0.9 H (0.0-0.4) X10*3/uL Baso # (Auto) 0.1 (0.0-0.2) X10*3/uL Abs Immat Gran (auto) 0.05 H (0.00-0.03) X10*3/uL Absolute Neuts (auto) 12.3 H (2.0-8.3) x10*3/uL Absolute Nucleated RBC 0.000 (0.0-0.012) X10*3/uL Nucleated RBC % (auto) 0.0 (0.0-0.2) /100WBC PT 15.2 H (11.1-13.3) SEC INR 1.3 H (0.9-1.1) Sodium 135 (135-145) mmol/L Potassium 3.7 (3.3-5.1) mmol/L Chloride 103 (96-108) mmol/L Carbon Dioxide 20 L (22-29) mmol/L Anion Gap 16 (12-20) BUN 7 L (9-16) mg/dL Creatinine 0.72 (0.5-1.4) mg/dL Estim Creat Clear Calc 17.8 Estimated GFR > 60 Random Glucose 110 (60-115) mg/dL Calcium 9.4 (8.4-10.2) mg/dL Total Bilirubin 0.3 (0.0-1.0) mg/dL AST 11 (5-31) U/L ALT 16 (0-31) U/L Alkaline Phosphatase 115 (39-117) U/L Troponin I High Sens (<3.5-17.0) ng/L Total Protein 8.1 H (6.5-8.0) g/dL Albumin 4.0 (3.5-5.0) g/dL Lipase 102 H (8-78) U/L Beta HCG, Quant mIU/mL Urine Color Urine Appearance Urine pH (5.0-9.0) Ur Specific Pauline (1.005-1.025) Urine Protein (Neg-Trace) mg/dL Urine Glucose (UA) (Negative) mg/dL Urine Ketones (Negative) mg/dL Urine Blood (Negative) Urine Nitrite (Negative) Ur Leukocyte Esterase (Negative) Urine RBC (0-2) /HPF Urine WBC (0-5) /HPF Ur Squamous Epith Cells (0-2) /HPF Urine Bacteria (None Seen) Hyaline Casts (0-2) /LPF 04/29/23 04/29/23 04/29/23 Range/Units 16:15 16:15 16:15 WBC (4.8-10.8) X10*3/uL RBC (4.20-5.50) X10*6/uL Hgb (12.0-16.0) g/dl Hct (37.0-47.0) % MCV (80.0-98.0) fL MCH (27.0-33.0) pg MCHC (31.0-35.0) g/dl RDW (11.0-16.0) % Plt Count (160-400) X10*3/uL MPV (9.4-12.3) fL Immature Gran % (Auto) (0.0-0.4) % Neut % (Auto) (45-73) % Lymph % (Auto) (20-40) % [place] % (Auto) (2-11) % Eos % (Auto) (0-4) % Baso % (Auto) (0-2) % Lymph # (Auto) (1.2-4.9) X10*3/uL [place] # (Auto) (0.1-1.2) X10*3/uL Eos # (Auto) (0.0-0.4) X10*3/uL Baso # (Auto) (0.0-0.2) X10*3/uL Abs Immat Gran (auto) (0.00-0.03) X10*3/uL Absolute Neuts (auto) (2.0-8.3) x10*3/uL Absolute Nucleated RBC (0.0-0.012) X10*3/uL Nucleated RBC % (auto) (0.0-0.2) /100WBC PT (11.1-13.3) SEC INR (0.9-1.1) Sodium (135-145) mmol/L Potassium (3.3-5.1) mmol/L Chloride (96-108) mmol/L Carbon Dioxide (22-29) mmol/L Anion Gap (12-20) BUN (9-16) mg/dL Creatinine (0.5-1.4) mg/dL Estim Creat Clear Calc Estimated GFR Random Glucose (60-115) mg/dL Calcium (8.4-10.2) mg/dL Total Bilirubin (0.0-1.0) mg/dL AST (5-31) U/L ALT (0-31) U/L Alkaline Phosphatase (39-117) U/L Troponin I High Sens < 2.7 (<3.5-17.0) ng/L Total Protein (6.5-8.0) g/dL Albumin (3.5-5.0) g/dL Lipase (8-78) U/L Beta HCG, Quant < 2 mIU/mL Urine Color Yellow Urine Appearance Clear Urine pH 7.0 (5.0-9.0) Ur Specific Pauline 1.015 (1.005-1.025) Urine Protein Negative (Neg-Trace) mg/dL Urine Glucose (UA) Negative (Negative) mg/dL Urine Ketones 15 (Negative) mg/dL Urine Blood Negative (Negative) Urine Nitrite Negative (Negative) Ur Leukocyte Esterase Small (1+) H (Negative) Urine RBC 6-10 H (0-2) /HPF Urine WBC 0-5 (0-5) /HPF Ur Squamous Epith Cells 3-5 (0-2) /HPF Urine Bacteria 1+ (None Seen) Hyaline Casts 0-2 (0-2) /LPF Independent Interpretation I performed an independent interpretation of an: EKG Interpretation: Rate: 108 Rhythm:? sinus tachycardia [place]:? normal Normal P waves.? Normal TEJINDER.?? Normal QRS complex.?? ST T wave :?? no ST elevation, ST depression, no T-wave inversion qTC:415 prior studies:The study has been interpreted contemporaneously by me. Radiology Impression Discussion of test interpretation with radiology: I have reviewed the radio logist's reading. Radiologist Impression: CT/CT abdomen pelvis w IV con IMPRESSION: ? *? Peripancreatic fat stranding especially around the head of the pancreas consistent with ACUTE PANCREATITIS. No evidence of pancreatic necrosis or other complication at this time. ? Bilateral adnexal cysts, in this patient age group this is likely physiologic, no follow-up is required. Findings are overwhelmingly likely to represent a benign functional cyst. No followup imaging recommended. Discharge Plan Discharge Clinical Impression: Acute pancreatitis Patient Disposition: Admitted As Inpatient Interventions: Admission Worksheet (ED) Last Done: 04/30/23 03:54 Discharge Date/Time: 04/30/23 01:30
--- NOTE | 2023-04-29 15:57 | ECG_ITS ---
Test Reason : abd pain Blood Pressure : / mmHG Vent. Rate : 108 BPM Atrial Rate : 108 BPM P-R Int : 112 ms QRS Dur : 074 ms QT Int : 310 ms P-R-T Axes : 044 013 -10 degrees QTc Int : 415 ms Sinus tachycardia Otherwise normal ECG When compared with ECG of 10-MAR-2023 10:49, No significant change was found Referred By: Maricarmen Cheema Electronically Signed By:DIAMOND JASON MD
[2023-04-29 16:22] LABS: MANUAL DIFF FLAG NO
[2023-04-29 16:24] LABS: Basophils Absolute Auto 0.1 X10*3/uL (0.0-0.2); Basophils Percent Auto 0.4 % (0-2); Eosinophils Absolute Auto 0.9 X10*3/uL (0.0-0.4); Eosinophils Percent Auto 5.6 % (0-4); Hematocrit 36.9 % (37.0-47.0); Hemoglobin 11.3 g/dl (12.0-16.0); Imm Gran Abs Auto 0.05 X10*3/uL (0.00-0.03); Imm Gran Pct Auto 0.3 % (0.0-0.4); Lymphocytes Absolute Auto 2.4 X10*3/uL (1.2-4.9); Lymphocytes Percent Auto 14.4 % (20-40); Mean Corpuscular HGB Conc 30.6 g/dl (31.0-35.0); Mean Corpuscular Volume 81.6 fL (80.0-98.0); Mean Platelet Volume 9.3 fL (9.4-12.3); Monocytes Absolute Auto 0.8 X10*3/uL (0.1-1.2); Neutrophils Absolute Auto 12.3 x10*3/uL (2.0-8.3); Neutrophils Percent Auto 74.3 % (45-73); Platelet Count 491 X10*3/uL (160-400); Red Blood Count 4.52 X10*6/uL (4.20-5.50); Red Cell Distribution Width 15.3 % (11.0-16.0); White Blood Count 16.6 X10*3/uL (4.8-10.8)
[2023-04-29 16:27] LABS: Appearance Urine Clear; Color Urine Yellow; Glucose Urine UA Negative (Negative); Leukocyte Esterase Urine Small (1+) (Negative); Nitrite Urine Negative (Negative); Specific Gravity - Urine 1.015 (1.005-1.025); UMIC TRIGGER UACC YES; Urine Blood Negative (Negative); Urine Ketones 15 mg/dL (Negative); Urine Protein Negative (Neg-Trace)
[2023-04-29 16:36] LABS: Bacteria Urine 1+ (None Seen); Hyaline Casts Urine 0-2 /LPF (0-2); UACC Culture Trigger YES; WBC Urine 0-5 /HPF (0-5)
[2023-04-29 16:38] LABS: INTERNATIONAL NORM RATIO 1.3 (0.9-1.1); Prothrombin Time 15.2 SEC (11.1-13.3)
[2023-04-29 16:54] LABS: Alanine Aminotransferase 16 U/L (0-31); Alkaline Phosphatase 115 U/L (39-117); Anion Gap 16 (12-20); Aspartate Amino Transferase 11 U/L (5-31); Bilirubin Total 0.3 mg/dL (0.0-1.0); Blood Urea Nitrogen 7 mg/dL (9-16); Calcium 9.4 mg/dL (8.4-10.2); Carbon Dioxide 20 mmol/L (22-29); Chloride 103 mmol/L (96-108); Creatinine Clr Calc Pharmacy 17.8; Estimated Glomerular Filt Rate > 60; Glucose Random 110 mg/dL (60-115); Lipase 102 U/L (8-78); Potassium 3.7 mmol/L (3.3-5.1); Sodium 135 mmol/L (135-145); Total Protein 8.1 g/dL (6.5-8.0)
[2023-04-29 16:58] LABS: Troponin-I High Sensitivity < 2.7 ng/L (<3.5-17.0)
[2023-04-29 17:01] LABS: HCG Quantitative < 2 mIU/mL
--- NOTE | 2023-04-29 18:50 | PC.NURSE ---
Pt c/o pain to upper abdomen radiating to back, relief with nothing but increase with eating. Call wade with in reach.
[2023-04-29] MEDS: ondansetron HCL 4 MG/2 ML VIAL IVPUSH (20:12)
[2023-04-29] MEDS: Morphine Sulfate 4 MG/ML CARTRIDGE IVPUSH (20:12)
[2023-04-29] MEDS: 0.9 % Sodium Chloride 1,000 ML 999 ML IV (20:14)
[2023-04-29] MEDS: iohexoL 350 MG/ML 100 ML INFUS..BTL 85 ML IV (20:33)
[2023-04-29] MEDS: Ketorolac Tromethamine 30 MG/ML VIAL IVPUSH (21:12)
[2023-04-29] MEDS: HYDROmorphone HCl 1 MG/ML SYRINGE IVPUSH (22:06)
--- NOTE | 2023-04-29 22:22 | PHA.MEDREC ---
Pharmacy Consult ? Medication Reconciliation Pharmacy has completed the medication reconciliation. Patient brought medications with her. Patient has Trulance, Budensone, Lansoprazole and Qvar inhaler on-hand as well do not have on formulary. Patient reported she wants lansoprazole instead of omeprazole. Teri Azevedo, PharmD
--- NOTE | 2023-04-29 22:43 | PM.IMHP ---
History of Present Illness Date of Service: 04/29/23 Chief Complaint: Abdominal pain 37-year-old female past medical history of acute pancreatitis comes into the hospital with complaints of abdominal pain epigastric region radiating to the back, consistent with a previous episode of acute pancreatitis. Pain is 10/10. Constant, no relieving factors. Low oral intake. Patient reports symptoms started about a week ago, getting worse. Was seen in the hospital several days ago, was given p.o. analgesics, with no relief. She has nausea, some vomiting, no chest pain, no shortness of breath, some diarrhea with no constipation, no urinary symptoms and no lower extremity edema. On arrival to the ED patient hemodynamically stable with a slightly elevated heart rate, blood pressure slightly elevated all normalized. Labs are significant for WBC count of 16.6, INR of 1.3, normal LFTs, lipase of 102, UA positive for leukocyte Estrace, WBC, and bacteria Review of Systems Review of Systems: Yes all other systems are reviewed and are negative FORMERLY [facility], [facility] Medical History Allergic rhinitis Annual visit for general adult medical examination with abnormal findings Anxiety Anxiety and depression Family history of malignant neoplasm of breast in relative diagnosed when younger than 45 years of age GERD (gastroesophageal reflux disease) Mild intermittent asthma in adult without complication Obesity (BMI 30-39.9) Ulcerative colitis, left sided Family History Father Drug addiction Alcoholism Substance use disorder Mental health disorder Mother History of COPD History of asthma Mental health disorder Maternal Aunt Breast cancer Ovarian cancer Bipolar 1 disorder Maternal Grandfather Colon cancer Brother Drug addiction Alcoholism Substance use disorder Mental health disorder Brother Substance use disorder Mental health disorder Surgical History Hx [facility] Social History Household Members: None Housing: Apartment Do you presently have visiting nurse or other home services: No Alcohol intake: never Patient Tobacco Use Status: Former Tobacco user Years Smoked: 6 months Smoked in Last 30 Days: No e-Cigarette/Vaping Use: Never Used Use of substances other than those prescribed or required for medical reasons: Yes Substance Use Type: Marijuana Substance Use Type Other:: edibles Substance Use Frequency: Daily Last Used Substance: Days (ago) Have you been hit, kicked, punched, or otherwise hurt by someone within the past year? If so, by whom?: No Do you feel safe in your current relationship?: Yes Is there a partner from a previous relationship who is making you feel unsafe now?: No Advance Directives: No Advance Directives Information Provided: Yes Do you have thoughts of harming others: None Do you have a plan to hurt others: No Plan Recently lost weight without trying: No How much weight loss: Not applicable Eating poorly because of decreased appetite: No Nutrition screen score: 0 Nutrition Risks: No Nutritional Risk Patient : No : No service: No Current occupational status: employed Gender identity: Female Cognitive needs: No Hearing needs: No Vision needs: No Meds Allergies Allergy/AdvReac Type Severity Reaction Status Date / Time mercaptopurine Allergy Intermediate PANCREATITI Verified 04/29/23 15:56 [MERCAPTOPURINE] S prochlorperazine Allergy Intermediate DYSTONIA Verified 04/29/23 15:56 [From COMPAZINE] clindamycin AdvReac Swelling Verified 04/29/23 15:56 Home Medications Medication Instructions Recorded Confirmed Last Taken Type beclomethasone dipropionate 80 4 inh inhalation Q12H 01/18/23 04/29/23 04/29/23 History mcg/actuation HFA breath activated aerosol (Qvar RediHaler) escitalopram oxalate 10 mg tablet 10 mg PO BEDTIME 01/18/23 04/29/23 04/28/23 History fexofenadine 60 mg tablet 60 mg PO BEDTIME 01/18/23 04/29/23 04/28/23 History fluticasone propionate 50 1 spray intranasal BEDTIME 01/18/23 04/29/23 04/28/23 History mcg/actuation nasal spray,suspension lansoprazole 30 mg capsule,delayed 30 mg PO DAILY 01/18/23 04/29/23 04/29/23 History release vedolizumab 300 mg intravenous 300 mg IV Q8W 01/18/23 04/29/23 04/21/23 History solution (Entyvio) budesonide 3 mg 9 mg PO QAM 04/29/23 04/29/23 04/29/23 History capsule,delayed,extended release mesalamine 1,000 mg rectal 1,000 mg RI BEDTIME PRN gi 04/29/23 04/29/23 Unknown History suppository irritation plecanatide 3 mg tablet (Trulance) 3 mg PO DAILY 04/29/23 04/29/23 04/29/23 History spironolactone 100 mg tablet 100 mg PO QAM acne 04/29/23 04/29/23 04/29/23 History Physical Exam Vital Signs and Narrative: Vital Signs: Last Vital Signs Temp 98.6 F 04/29/23 21:51 Pulse 104 H 04/29/23 21:51 Resp 18 04/29/23 22:06 BP 123/81 04/29/23 21:51 Pulse Ox 98 04/29/23 21:51 O2 Del Method Room Air 04/29/23 21:51 BMI result Body Mass Index 3.8 Const: General: cooperative and no acute distress Orientation/consciousness: patient oriented x3 Eyes: General: appearance normal, both eyes and all related structures Resp: Effort & Inspection: normal respiratory effort Auscultation: clear to auscultation bilaterally Cardio: Rate: regular rate Rhythm: regular rhythm GI: Other: Epigastric tenderness no rebound or guarding Palpation (GI): Soft to palpation Auscultation: normal bowel sounds Skin: General skin exam: no rashes or lesions noted Neuro: General: patient oriented x3 Cognition (Neuro): normal cognition Extrem: General: Yes normal to inspection and Yes no pedal edema Results Labs 04/29/23 16:15 04/29/23 16:15 Labs: Laboratory Results - last 24 hr 04/29/23 04/29/23 04/29/23 16:15 16:15 16:15 MCV 81.6 MCH 25.0 L MCHC 30.6 L RDW 15.3 Plt Count 491 H MPV 9.3 L Immature Gran % (Auto) 0.3 Neut % (Auto) 74.3 H Lymph % (Auto) 14.4 L [place] % (Auto) 5.0 Eos % (Auto) 5.6 H Baso % (Auto) 0.4 Lymph # (Auto) 2.4 [place] # (Auto) 0.8 Eos # (Auto) 0.9 H Baso # (Auto) 0.1 Abs Immat Gran (auto) 0.05 H Absolute Neuts (auto) 12.3 H Absolute Nucleated RBC 0.000 Nucleated RBC % (auto) 0.0 PT 15.2 H INR 1.3 H Anion Gap 16 Estim Creat Clear Calc 17.8 Estimated GFR > 60 Random Glucose 110 Calcium 9.4 Total Bilirubin 0.3 AST 11 ALT 16 Alkaline Phosphatase 115 Total Protein 8.1 H Albumin 4.0 Lipase 102 H Beta HCG, Quant Urine Color Urine Appearance Urine pH Ur Specific [place] Urine Protein Urine Glucose (UA) Urine Ketones Urine Blood Urine Nitrite Ur Leukocyte Esterase Urine RBC Urine WBC Ur Squamous Epith Cells Urine Bacteria Hyaline Casts 04/29/23 04/29/23 16:15 16:15 MCV MCH MCHC RDW Plt Count MPV Immature Gran % (Auto) Neut % (Auto) Lymph % (Auto) [place] % (Auto) Eos % (Auto) Baso % (Auto) Lymph # (Auto) [place] # (Auto) Eos # (Auto) Baso # (Auto) Abs Immat Gran (auto) Absolute Neuts (auto) Absolute Nucleated RBC Nucleated RBC % (auto) PT INR Anion Gap Estim Creat Clear Calc Estimated GFR Random Glucose Calcium Total Bilirubin AST ALT Alkaline Phosphatase Total Protein Albumin Lipase Beta HCG, Quant < 2 Urine Color Yellow Urine Appearance Clear Urine pH 7.0 Ur Specific [place] 1.015 Urine Protein Negative Urine Glucose (UA) Negative Urine Ketones 15 Urine Blood Negative Urine Nitrite Negative Ur Leukocyte Esterase Small (1+) H Urine RBC 6-10 H Urine WBC 0-5 Ur Squamous Epith Cells 3-5 Urine Bacteria 1+ Hyaline Casts 0-2 Imaging Radiologist's Impressions: Impressions Abdomen/Pelvis CT 04/29/23 20:36 IMPRESSION: * Peripancreatic fat stranding especially around the head of the pancreas consistent with ACUTE PANCREATITIS. No evidence of pancreatic necrosis or other complication at this time. Bilateral adnexal cysts, in this patient age group this is likely physiologic, no follow-up is required. Findings are overwhelmingly likely to represent a benign functional cyst. No followup imaging recommended. Assessment and Plan (1) Acute pancreatitis: Status: Acute (2) Ulcerative colitis: Status: Acute (3) Asymptomatic bacteriuria: Status: Acute Plan 37-year-old female past medical history of ulcerative colitis comes into the hospital complaints of epigastric abdominal pain found to have acute pancreatitis # acute pancreatitis - no evidence of gallstones, will rule out triglycerides although less likely - has history of acalculous biliary colic, appears the patient also had an outpatient MRCP done with GI which was normal per patient - will treat with IV fluids, analgesics - NPO - monitor symptoms # ulcerative colitis - continue home steroids # asymptomatic bacteriuria - no treatment DVT prophylaxis: Lovenox Given patient's need for further management of acute pancreatitis failed outpatient therapy patient require minimum 2 nights inpatient hospital stay for further management and monitoring Time Spent With Patient Time: Total time managing care of this patient today ____ minutes. Quality Stroke Does the patient have a stroke diagnosis?: No VTE Prior VTE?: No VTE Risk Level:: Medical - moderate - high VTE Device Contraindication: Treatment Not Indicated VTE Drug Contraindication: N/A - Med Ordered
[2023-04-30] VITALS (9 sets, daily range): BP systolic 103–153; BP diastolic 60–98; PULSE 74–92; RESP 16–18; TEMP 36.2–37; O2SAT 94–99
[2023-04-30] MEDS: Morphine Sulfate 4 MG/ML CARTRIDGE IVPUSH ×2 (00:20→04:05)
[2023-04-30] MEDS: Enoxaparin Sodium 40 MG/0.4 ML SYRINGE SUBCUT ×2 (00:21→22:59)
--- NOTE | 2023-04-30 01:01 | PC.NURSE ---
Nurse to nurse report given to RAINE Pool RN. Patient to be transported to [facility] by technical expert.
[2023-04-30] MEDS: Lactated Ringers 1,000 ML 200 ML IVCONT ×4 (02:25→21:05)
[2023-04-30] MEDS: HYDROmorphone HCl 0.5 MG/0.5 ML SYRINGE IVPUSH ×3 (03:04→12:50)
[2023-04-30] MEDS: ondansetron HCL 4 MG/2 ML VIAL IVPUSH ×3 (04:09→23:08)
[2023-04-30] MEDS: Ketorolac Tromethamine 30 MG/ML VIAL IVPUSH (05:23)
[2023-04-30 07:17] LABS: MANUAL DIFF FLAG NO
[2023-04-30 07:21] LABS: Basophils Absolute Auto 0.1 X10*3/uL (0.0-0.2); Basophils Percent Auto 0.4 % (0-2); Eosinophils Absolute Auto 1.1 X10*3/uL (0.0-0.4); Hematocrit 32.7 % (37.0-47.0); Imm Gran Abs Auto 0.07 X10*3/uL (0.00-0.03); Imm Gran Pct Auto 0.5 % (0.0-0.4); Lymphocytes Absolute Auto 3.4 X10*3/uL (1.2-4.9); Lymphocytes Percent Auto 21.9 % (20-40); Mean Corpuscular HGB Conc 30.6 g/dl (31.0-35.0); Mean Corpuscular Hemoglobin 25.3 pg (27.0-33.0); Mean Corpuscular Volume 82.6 fL (80.0-98.0); Mean Platelet Volume 9.7 fL (9.4-12.3); Monocytes Absolute Auto 1.3 X10*3/uL (0.1-1.2); Monocytes Percent Auto 8.5 % (2-11); Neutrophils Absolute Auto 9.5 x10*3/uL (2.0-8.3); Neutrophils Percent Auto 61.7 % (45-73); Platelet Count 399 X10*3/uL (160-400); Red Blood Count 3.96 X10*6/uL (4.20-5.50); Red Cell Distribution Width 15.6 % (11.0-16.0); White Blood Count 15.4 X10*3/uL (4.8-10.8)
[2023-04-30 07:33] LABS: Triglycerides 91 mg/dL
[2023-04-30 07:41] LABS: Anion Gap 16 (12-20); Blood Urea Nitrogen 6 mg/dL (9-16); Calcium 8.9 mg/dL (8.4-10.2); Carbon Dioxide 21 mmol/L (22-29); Chloride 105 mmol/L (96-108); Estimated Glomerular Filt Rate > 60; Glucose Random 90 mg/dL (60-115); Potassium 3.6 mmol/L (3.3-5.1); Sodium 138 mmol/L (135-145)
[2023-04-30] MEDS: Montelukast Sodium 10 MG TABLET PO (07:44)
[2023-04-30] MEDS: Spironolactone 25 MG TABLET 100 MG PO (07:46)
[2023-04-30] MEDS: oxyCODONE HCl Immed Release 5 MG TABLET PO ×2 (07:46→17:27)
[2023-04-30] MEDS: 0.9 % Sodium Chloride Flush 3 ML SYRINGE IVFLUSH ×2 (07:49→17:28)
--- NOTE | 2023-04-30 12:02 | P.PNIM_ITS ---
Subjective Subjective Date of Service: 04/30/23 Interval History: seen and examined this morning Follow-up for pancreatitis Reports improvement in epigastric/ right upper quadrant abdominal pain Denies nausea, vomiting Review of Systems Review of Systems: Yes all other systems are reviewed and are negative Constitutional Constitutional: Denies chills and Denies fever(s) Cardiovascular Cardiovascular: Denies chest pain Gastrointestinal Gastrointestinal: Reports abdominal pain, Denies nausea and Denies vomiting Physical Exam Vital Signs: Vital Signs: Last Vital Signs Temp 98.3 F 04/30/23 11:59 Pulse 92 04/30/23 11:59 Resp 18 04/30/23 11:59 BP 151/98 H 04/30/23 11:59 Pulse Ox 99 04/30/23 11:59 O2 Del Method Room Air 04/30/23 11:59 BMI result Body Mass Index 3.8 Const: General: cooperative, comfortable, no acute distress, alert and awake Nutritional Appearance: overweight Orientation/consciousness: patient oriented x3 HEENT: Head: Yes normocephalic and Yes atraumatic Resp: Effort & Inspection: normal respiratory effort, able to speak in complete sentences, no respiratory distress and no use of accessory muscles Auscultation: clear to auscultation bilaterally Cardio: Rate: regular rate Heart sounds: S1 normal heart sound present, S2 normal heart sound present and no murmurs GI: Other: mild tenderness upper abdomen Inspection: No distended Palpation (GI): Soft to palpation and no guarding Neuro: General: patient oriented x3, moves all extremities and CN's II-XI i ntact bilaterally Extrem: General: Yes no pedal edema Objective Data Active Medications Acetaminophen (Acetaminophen 325 Mg Tablet) 650 mg PO Q6H PRN PRN Reason: Pain, Mild (Pain Scale 1-3) Albuterol Sulfate (Albuterol Sulfate 90 Mcg 8 Gm Inhaler) 2 puff INHALE Q4H PRN PRN Reason: wheezing Enoxaparin Sodium (Enoxaparin Sodium 40 Mg/0.4 Ml Syringe) 40 mg SUBCUT Q24H ANANYA Last Admin: 04/30/23 00:21 Dose: 40 mg Documented By: MEGAN Escitalopram Oxalate (Escitalopram Oxalate 10 Mg Tablet) 10 mg PO BEDTIME ANANYA Fluticasone Propionate (Fluticasone Propionate Nasal 16 Gm [place]) 1 spray NOSTRIL-B BEDTIME ANANYA Hydrocortisone (Hydrocortisone 2.5 % Rectal Cr 30 Gm Tube) 1 appl [place] DAILY PRN PRN Reason: hemorrhoids Hydromorphone HCl (Hydromorphone Hcl 0.5 Mg/0.5 Ml Syringe) 0.5 mg IVPUSH Q3H PRN; Protocol PRN Reason: Pain, Severe (Pain Scale 7-10) Lactated Ringer's (Lr) 1,000 mls @ 200 mls/hr IVCONT .Q5H [facility] Last Admin: 04/30/23 07:47 Dose: 200 mls/hr Documented By: ANGELA Loratadine (Loratadine 10 Mg Tablet) 10 mg PO BEDTIME [facility] Montelukast Sodium (Montelukast Sodium 10 Mg Tablet) 10 mg PO DAILY [facility] Last Admin: 04/30/23 07:44 Dose: 10 mg Documented By: ANGELA Patient Own Med ( Beclomethasone Dipropionate [Qvar Redihaler] 80 Mcg/Actuation Hf 4 inhalation INHALE RBID [facility] Last Admin: 04/30/23 10:09 Dose: 4 inhalation Documented By: ANGELA Patient Own Med ( Budesonide 3 Mg Capsule,Delayed, Extend.Release) 9 mg PO DAILY [facility] Last Admin: 04/30/23 10:05 Dose: 9 mg Documented By: ANGELA Patient Own Med ( Plecanatide [ Trulance] 3 Mg Tablet) 3 mg PO DAILY [facility] Last Admin: 04/30/23 10:05 Dose: 3 mg Documented By: ANGELA Patient Own Medication ( Lansoprazole Dr 30 Mg Capsules) 30 each PO DAILY@629 [facility] Last Admin: 04/30/23 10:06 Dose: 30 each Documented By: ANGELA Omeprazole (Omeprazole 20 Mg Capsule.Dr) 20 mg PO DAILY@0630 [facility] Last Admin: 04/30/23 07:46 Dose: Not Given Documented By: ANGELA Non-Admin Reason: Patient Refused Ondansetron HCl (Ondansetron Hcl 4 Mg/2 Ml Vial) 4 mg IVPUSH Q8H PRN PRN Reason: Nausea and Vomiting Last Admin: 04/30/23 04:09 Dose: 4 mg Documented By: BIRGIT Oxycodone HCl (Oxycodone Hcl Immed Release 5 Mg Tablet) 5 mg PO Q6H PRN PRN Reason: Pain, Mild (Pain Scale 1-3) Last Admin: 04/30/23 07:46 Dose: 5 mg Documented By: ANGELA Sodium Chloride (0.9 % Sodium Chloride Flush 3 Ml Syringe) 3 ml IVFLUSH QSHIFT [facility] Last Admin: 04/30/23 07:49 Dose: 3 ml Documented By: ANGELA Spironolactone (Spironolactone 25 Mg Tablet) 100 mg PO DAILY [facility]; Protocol Last Admin: 04/30/23 07:46 Dose: 100 mg Documented By: ANGELA Labs 04/30/23 06:18 04/30/23 06:18 Labs: Laboratory Results - last 24 hr 04/29/23 04/29/23 04/29/23 16:15 16:15 16:15 MCV 81.6 MCH 25.0 L MCHC 30.6 L RDW 15.3 Plt Count 491 H MPV 9.3 L Immature Gran % (Auto) 0.3 Neut % (Auto) 74.3 H Lymph % (Auto) 14.4 L [place] % (Auto) 5.0 Eos % (Auto) 5.6 H Baso % (Auto) 0.4 Lymph # (Auto) 2.4 [place] # (Auto) 0.8 Eos # (Auto) 0.9 H Baso # (Auto) 0.1 Abs Immat Gran (auto) 0.05 H Absolute Neuts (auto) 12.3 H Absolute Nucleated RBC 0.000 Nucleated RBC % (auto) 0.0 PT 15.2 H INR 1.3 H Anion Gap 16 Estim Creat Clear Calc 17.8 Estimated GFR > 60 Random Glucose 110 Calcium 9.4 Total Bilirubin 0.3 AST 11 ALT 16 Alkaline Phosphatase 115 Total Protein 8.1 H Albumin 4.0 Triglycerides Lipase 102 H Beta HCG, Quant Urine Color Urine Appearance Urine pH Ur Specific [place] Urine Protein Urine Glucose (UA) Urine Ketones Urine Blood Urine Nitrite Ur Leukocyte Esterase Urine RBC Urine WBC Ur Squamous Epith Cells Urine Bacteria Hyaline Casts 04/29/23 04/29/23 04/30/23 16:15 16:15 06:18 MCV 82.6 MCH 25.3 L MCHC 30.6 L RDW 15.6 Plt Count 399 MPV 9.7 Immature Gran % (Auto) 0.5 H Neut % (Auto) 61.7 Lymph % (Auto) 21.9 [place] % (Auto) 8.5 Eos % (Auto) 7.0 H Baso % (Auto) 0.4 Lymph # (Auto) 3.4 [place] # (Auto) 1.3 H Eos # (Auto) 1.1 H Baso # (Auto) 0.1 Abs Immat Gran (auto) 0.07 H Absolute Neuts (auto) 9.5 H Absolute Nucleated RBC 0.000 Nucleated RBC % (auto) 0.0 PT INR Anion Gap Estim Creat Clear Calc Estimated GFR Random Glucose Calcium Total Bilirubin AST ALT Alkaline Phosphatase Total Protein Albumin Triglycerides Lipase Beta HCG, Quant < 2 Urine Color Yellow Urine Appearance Clear Urine pH 7.0 Ur Specific [place] 1.015 Urine Protein Negative Urine Glucose (UA) Negative Urine Ketones 15 Urine Blood Negative Urine Nitrite Negative Ur Leukocyte Esterase Small (1+) H Urine RBC 6-10 H Urine WBC 0-5 Ur Squamous Epith Cells 3-5 Urine Bacteria 1+ Hyaline Casts 0-2 04/30/23 04/30/23 06:18 06:18 MCV MCH MCHC RDW Plt Count MPV Immature Gran % (Auto) Neut % (Auto) Lymph % (Auto) [place] % (Auto) Eos % (Auto) Baso % (Auto) Lymph # (Auto) [place] # (Auto) Eos # (Auto) Baso # (Auto) Abs Immat Gran (auto) Absolute Neuts (auto) Absolute Nucleated RBC Nucleated RBC % (auto) PT INR Anion Gap 16 Estim Creat Clear Calc 20.0 Estimated GFR > 60 Random Glucose 90 Calcium 8.9 Total Bilirubin AST ALT Alkaline Phosphatase Total Protein Albumin Triglycerides 91 Lipase Beta HCG, Quant Urine Color Urine Appearance Urine pH Ur Specific [place] Urine Protein Urine Glucose (UA) Urine Ketones Urine Blood Urine Nitrite Ur Leukocyte Esterase Urine RBC Urine WBC Ur Squamous Epith Cells Urine Bacteria Hyaline Casts Microbiology Microbiology Results: Microbiology 04/29/23 Unknown Urine Culture - Preliminary Urine clean catch - Urine zhu top Culture too young to evaluate. Assessment and Plan (1) Acute pancreatitis: Status: Acute Plan 37-year-old female past medical history of ulcerative colitis comes into the hospital complaints of epigastric abdominal pain found to have acute pancreatitis acute pancreatitis no gallstone seen on imaging, triglycerides low, denies alcohol use. Reports recurrent episodes pancreatitis, follows with outpatient GI for the same outpatient MRCP last week normal mesalamine listed class Ia as possible cause- will hold for now - will treat with IV fluids, analgesics - NPO, advanced as tolerated - monitor symptoms ulcerative colitis - continue home steroids asymptomatic bacteriuria - no treatment on spironolactone for acne. Will hold while receiving IV fluid mood continue home meds DVT prophylaxis: Shar attending- Dr. Draper requires ongoing inpatient hospitalization for management of acute pancreatitis including IV narcotics for adequate pain control Time Spent With Patient Time: Total time managing care of this patient today ____ minutes. Quality Stroke Does the patient have a stroke diagnosis?: No VTE Prior VTE?: No VTE Risk Level:: Medical - moderate - high VTE Device Contraindication: Treatment Not Indicated VTE Drug Contraindication: N/A - Med Ordered
--- NOTE | 2023-04-30 12:30 | MHC.CM.PN ---
Interview conducted w/Pt. Pt lives alone, no prior services or equipment. Drives self to where she needs to go. Independent. Drove self to [facility]. D/C plan is home via self. CM to follow.
[2023-04-30] MEDS: HYDROmorphone HCl 0.5 MG/0.5 ML SYRINGE 1 MG IVPUSH ×3 (15:06→23:02)
[2023-04-30] MEDS: Fluticasone Propionate Nasal 16 GM SPRAY 1 SPRAY NOSTRIL-B (21:04)
[2023-04-30] MEDS: Loratadine 10 MG TABLET PO (21:04)
[2023-04-30] MEDS: Escitalopram Oxalate 10 MG TABLET PO (21:05)
[2023-05-01] MEDS: Lactated Ringers 1,000 ML 200 ML IVCONT ×4 (02:27→18:12)
[2023-05-01] MEDS: 0.9 % Sodium Chloride Flush 3 ML SYRINGE IVFLUSH ×3 (02:29→17:20)
[2023-05-01] MEDS: HYDROmorphone HCl 0.5 MG/0.5 ML SYRINGE 1 MG IVPUSH ×5 (03:05→22:24)
[2023-05-01 03:21] VITALS: BP 115/70; PULSE 81; RESP 20; TEMP 36.3; O2SAT 95
[2023-05-01 07:35] VITALS: BP 131/79; PULSE 87; RESP 18; TEMP 36.1; O2SAT 99
[2023-05-01] MEDS: Montelukast Sodium 10 MG TABLET PO (07:56)
[2023-05-01] MEDS: ondansetron HCL 4 MG/2 ML VIAL IVPUSH ×2 (07:58→17:20)
--- NOTE | 2023-05-01 10:27 | HO.PM.IMPN ---
Subjective Subjective Date of Service: 05/01/23 Interval History: seen and examined this morning Follow-up for pancreatitis Reports improvement in epigastric/ right upper quadrant abdominal pain Denies nausea, vomiting. Is willing to start diet Review of Systems Constitutional : No Weight loss, No Fever, No Chills ENT/Mouth :? No sore throat, No Rhinorrhea Eyes: No Swelling, No Redness Cardiovascular : No Chest Pain, No SOB, No Edema Respiratory : No Cough, No Sputum, No Wheezing Gastrointestinal : Positive Nausea, Positive Vomiting, no Diarrhea, positive abdominal pain, No Hematochezia, No Melena Genitourinary : No Dysuria, No Urinary Frequency, No Hematuria, No Urgency? Musculoskeletal : No joint pain, No Myalgias, No Joint Swelling Skin : No Skin Lesions, No rash Neuro : No Weakness, No Numbness, No Dizziness, No Headache Psych : No Anxiety/Panic, No Depression Heme/Lymph: No Bruising, No Lymphadenopathy Endocrine : No Polyuria, No Polydipsia Constitutional Constitutional: Denies chills and Denies fever(s) Cardiovascular Cardiovascular: Denies chest pain Gastrointestinal Gastrointestinal: Reports abdominal pain, Denies nausea and Denies vomiting Physical Exam Vital Signs: Vital Signs: Last Vital Signs Temp 97.0 F 05/01/23 07:35 Pulse 87 05/01/23 07:35 Resp 18 05/01/23 07:35 BP 131/79 05/01/23 07:35 Pulse Ox 99 05/01/23 07:35 O2 Del Method Room Air 05/01/23 07:35 BMI result Body Mass Index 3.8 Const: General: cooperative, comfortable, no acute distress, alert and awake Nutritional Appearance: overweight Orientation/consciousness: patient oriented x3 HEENT: Head: Yes normocephalic and Yes atraumatic Eyes: General: appearance normal, both eyes and all related structures Resp: Effort & Inspection: normal respiratory effort, able to speak in complete sentences, no respiratory distress and no use of accessory muscles Auscultation: clear to auscultation bilaterally Cardio: Rate: regular rate Rhythm: regular rhythm Heart sounds: S1 normal heart sound present, S2 normal heart sound present and no murmurs GI: Other: mild tenderness upper abdomen Inspection: No distended Palpation (GI): Soft to palpation and no guarding Auscultation: normal bowel sounds Skin: General skin exam: no rashes or lesions noted Neuro: General: patient oriented x3, moves all extremities and CN's II-XI intact bilaterally Cognition (Neuro): normal cognition Extrem: General: Yes normal to inspection and Yes no pedal edema Objective Data Active Medications Acetaminophen (Acetaminophen 325 Mg Tablet) 650 mg PO Q6H PRN PRN Reason: Pain, Mild (Pain Scale 1-3) Albuterol Sulfate (Albuterol Sulfate 90 Mcg 8 Gm Inhaler) 2 puff INHALE Q4H PRN PRN Reason: wheezing Enoxaparin Sodium (Enoxaparin Sodium 40 Mg/0.4 Ml Syringe) 40 mg SUBCUT Q24H [facility] Last Admin: 04/30/23 22:59 Dose: 40 mg Documented By: BIRGIT Escitalopram Oxalate (Escitalopram Oxalate 10 Mg Tablet) 10 mg PO BEDTIME [facility] Last Admin: 04/30/23 21:05 Dose: 10 mg Documented By: ARMEN Fluticasone Propionate (Fluticasone Propionate Nasal 16 Gm [place]) 1 spray NOSTRIL-B BEDTIME [facility] Last Admin: 04/30/23 21:04 Dose: 1 spray Documented By: ARMEN Hydrocortisone (Hydrocortisone 2.5 % Rectal Cr 30 Gm Tube) 1 appl [place] DAILY PRN PRN Reason: hemorrhoids Hydromorphone HCl (Hydromorphone Hcl 0.5 Mg/0.5 Ml Syringe) 1 mg IVPUSH Q4H PRN; Protocol PRN Reason: Pain, Severe (Pain Scale 7-10) Last Admin: 05/01/23 07:55 Dose: 1 mg Documented By: ANGELA Lactated Ringer's (Lr) 1,000 mls @ 200 mls/hr IVCONT .Q5H [facility] Last Admin: 05/01/23 07:58 Dose: 200 mls/hr Documented By: ANGELA Loratadine (Loratadine 10 Mg Tablet) 10 mg PO BEDTIME [facility] Last Admin: 04/30/23 21:04 Dose: 10 mg Documented By: ARMEN Montelukast Sodium (Montelukast Sodium 10 Mg Tablet) 10 mg PO DAILY [facility] Last Admin: 05/01/23 07:56 Dose: 10 mg Documented By: ANGELA Patient Own Med ( Beclomethasone Dipropionate [Qvar Redihaler] 80 Mcg/Actuation Hf 4 inhalation INHALE RBID [facility] Last Admin: 05/01/23 07:54 Dose: 4 inhalation Documented By: ANGELA Patient Own Med ( Budesonide 3 Mg Capsule,Delayed, Extend.Release) 9 mg PO DAILY [facility] Last Admin: 05/01/23 07:54 Dose: 9 mg Documented By: ANGELA Patient Own Med ( Plecanatide [ Trulance] 3 Mg Tablet) 3 mg PO DAILY [facility] Last Admin: 05/01/23 07:54 Dose: 3 mg Documented By: ANGELA Patient Own Medication ( Lansoprazole Dr 30 Mg Capsules) 30 each PO DAILY@0630 [facility] Last Admin: 05/01/23 07:54 Dose: 30 each Documented By: ANGELA Ondansetron HCl (Ondansetron Hcl 4 Mg/2 Ml Vial) 4 mg IVPUSH Q8H PRN PRN Reason: Nausea and Vomiting Last Admin: 05/01/23 07:58 Dose: 4 mg Documented By: ANGELA Oxycodone HCl (Oxycodone Hcl Immed Release 5 Mg Tablet) 5 mg PO Q6H PRN PRN Reason: Pain, Mild (Pain Scale 1-3) Last Admin: 04/30/23 17:27 Dose: 5 mg Documented By: ANGELA Sodium Chloride (0.9 % Sodium Chloride Flush 3 Ml Syringe) 3 ml IVFLUSH QSHIFT [facility] Last Admin: 05/01/23 07:58 Dose: 3 ml Documented By: ANGELA Spironolactone (Spironolactone 25 Mg Tablet) 100 mg PO DAILY [facility]; Protocol Last Admin: 04/30/23 07:46 Dose: 100 mg Documented By: ANGELA Labs 04/30/23 06:18 04/30/23 06:18 Microbiology Microbiology Results: Microbiology 04/29/23 Unknown Urine Culture - Final Urine clean catch - Urine zhu top Assessment and Plan (1) Acute pancreatitis: Status: Acute Plan 37-year-old female past medical history of ulcerative colitis comes into the hospital complaints of epigastric abdominal pain found to have acute pancreatitis acute pancreatitis no gallstone seen on imaging, triglycerides low, denies alcohol use. Reports recurrent episodes pancreatitis, follows with outpatient GI for the same outpatient MRCP last week normal mesalamine listed class Ia as possible cause- will hold for now - will treat with IV fluids, analgesics -Iniating clear liquid diet (05/01) , monitor and advance as tolerated ulcerative colitis - continue home steroids asymptomatic bacteriuria - no treatment on spironolactone for acne. Will hold mood continue home meds DVT prophylaxis: Lovenox requires ongoing inpatient hospitalization for management of acute pancreatitis including IV narcotics for adequate pain control and close monitoring of po intake Time Spent With Patient Time: Total time managing care of this patient today ____ minutes. Quality Stroke Does the patient have a stroke diagnosis?: No VTE Prior VTE?: No VTE Risk Level:: Medical - moderate - high VTE Device Contraindication: Treatment Not Indicated VTE Drug Contraindication: N/A - Med Ordered
[2023-05-01 11:20] VITALS: BP 124/78; PULSE 99; RESP 20; TEMP 36.1; O2SAT 96
[2023-05-01 15:05] VITALS: BP 107/57; PULSE 89; RESP 18; TEMP 36.7; O2SAT 98
[2023-05-01 17:18] VITALS: RESP 18
[2023-05-01] MEDS: Albuterol Sulfate 90 MCG 8 GM INHALER 2 PUFF INHALE (17:18)
[2023-05-01 19:30] VITALS: BP 109/62; PULSE 89; RESP 17; TEMP 37; O2SAT 97
[2023-05-01] MEDS: Escitalopram Oxalate 10 MG TABLET PO (22:24)
[2023-05-01] MEDS: Enoxaparin Sodium 40 MG/0.4 ML SYRINGE SUBCUT (22:24)
[2023-05-01] MEDS: Fluticasone Propionate Nasal 16 GM SPRAY 1 SPRAY NOSTRIL-B (22:25)
[2023-05-01] MEDS: Loratadine 10 MG TABLET PO (22:25)
[2023-05-02] VITALS (7 sets, daily range): BP systolic 108–119; BP diastolic 65–84; PULSE 65–81; RESP 17–20; TEMP 36.1–37.1; O2SAT 94–98
[2023-05-02] MEDS: Lactated Ringers 1,000 ML 200 ML IVCONT (00:08)
[2023-05-02] MEDS: HYDROmorphone HCl 0.5 MG/0.5 ML SYRINGE 1 MG IVPUSH ×5 (02:36→20:43)
[2023-05-02] MEDS: ondansetron HCL 4 MG/2 ML VIAL IVPUSH ×3 (02:36→20:49)
[2023-05-02 07:03] LABS: MANUAL DIFF FLAG NO
[2023-05-02 07:09] LABS: Basophils Absolute Auto 0.1 X10*3/uL (0.0-0.2); Basophils Percent Auto 0.7 % (0-2); Eosinophils Absolute Auto 1.1 X10*3/uL (0.0-0.4); Eosinophils Percent Auto 11.7 % (0-4); Hematocrit 30.4 % (37.0-47.0); Hemoglobin 9.1 g/dl (12.0-16.0); Imm Gran Abs Auto 0.02 X10*3/uL (0.00-0.03); Imm Gran Pct Auto 0.2 % (0.0-0.4); Lymphocytes Absolute Auto 3.9 X10*3/uL (1.2-4.9); Lymphocytes Percent Auto 39.6 % (20-40); Mean Corpuscular HGB Conc 29.9 g/dl (31.0-35.0); Mean Corpuscular Hemoglobin 25.3 pg (27.0-33.0); Mean Corpuscular Volume 84.4 fL (80.0-98.0); Mean Platelet Volume 10.1 fL (9.4-12.3); Monocytes Absolute Auto 0.6 X10*3/uL (0.1-1.2); Monocytes Percent Auto 6.1 % (2-11); Neutrophils Percent Auto 41.7 % (45-73); Platelet Count 358 X10*3/uL (160-400); Red Cell Distribution Width 15.4 % (11.0-16.0); White Blood Count 9.7 X10*3/uL (4.8-10.8)
[2023-05-02 07:28] LABS: Anion Gap 13 (12-20); Blood Urea Nitrogen < 3 mg/dL (9-16); Calcium 8.7 mg/dL (8.4-10.2); Carbon Dioxide 25 mmol/L (22-29); Chloride 108 mmol/L (96-108); Creatinine Clr Calc Pharmacy 20.3; Estimated Glomerular Filt Rate > 60; Glucose Random 77 mg/dL (60-115); Potassium 3.6 mmol/L (3.3-5.1); Sodium 142 mmol/L (135-145)
[2023-05-02] MEDS: Montelukast Sodium 10 MG TABLET PO (09:15)
[2023-05-02] MEDS: 0.9 % Sodium Chloride Flush 3 ML SYRINGE IVFLUSH ×3 (09:16→20:42)
[2023-05-02] MEDS: Albuterol Sulfate 90 MCG 8 GM INHALER 2 PUFF INHALE (13:20)
--- NOTE | 2023-05-02 13:43 | MHC.CM.PN ---
per rounds pt not ready fr dc dc plan remins home no servceis
--- NOTE | 2023-05-02 16:12 | HO.PM.IMPN ---
Subjective Subjective Date of Service: 05/02/23 Interval History: Follow-up for pancreatitis Patient seen examined this morning Diet was advanced to clears yesterday Patient states she has been experiencing right upper quadrant abdominal pain radiating to her back soon after eating meals, rates it an 8/10 This occurred both yesterday and today Patient believes this did not during her last episode of pancreatitis and she advanced her diet, says this episode feels slightly different Had little bit of nausea, but no vomiting Would like to continue liquid diet for now Patient denies any other acute medical concerns Review of Systems Postprandial right upper quadrant pain radiating to back, right-sided 8/10 Nausea, no vomiting Denies all other acute medical complaints Physical Exam Vital Signs: Vital Signs: Last Vital Signs Temp 98.3 F 05/02/23 15:27 Pulse 79 05/02/23 15:27 Resp 20 05/02/23 15:27 BP 112/67 05/02/23 15:27 Pulse Ox 97 05/02/23 15:27 O2 Del Method Room Air 05/02/23 15:27 BMI result Body Mass Index 3.8 General: AOx3, no acute distress Resp: CTA bilaterally CVS: S1, S2, RRR GI: +BS hyperactive, no distention, RUQ tenderness Skin: No rash Neuro: Cranial nerves II-XII grossly intact bilaterally. Motor grossly intact bilaterally Extremities: No edema Psych: Appropriate affect Objective Data Active Medications Acetaminophen (Acetaminophen 325 Mg Tablet) 650 mg PO Q6H PRN PRN Reason: Pain, Mild (Pain Scale 1-3) Albuterol Sulfate (Albuterol Sulfate 90 Mcg 8 Gm Inhaler) 2 puff INHALE Q4H PRN PRN Reason: wheezing Last Admin: 05/02/23 13:20 Dose: 2 puff Documented By: ANANT Enoxaparin Sodium (Enoxaparin Sodium 30 Mg/0.3 Ml Syringe) 30 mg SUBCUT Q24H [facility] Escitalopram Oxalate (Escitalopram Oxalate 10 Mg Tablet) 10 mg PO BEDTIME [facility] Last Admin: 05/01/23 22:24 Dose: 10 mg Documented By: VINICIUS Fluticasone Propionate (Fluticasone Propionate Nasal 16 Gm [place]) 1 spray NOSTRIL-B BEDTIME [facility] Last Admin: 05/01/23 22:25 Dose: 1 spray Documented By: VINICIUS Hydrocortisone (Hydrocortisone 2.5 % Rectal Cr 30 Gm Tube) 1 appl [place] DAILY PRN PRN Reason: hemorrhoids Hydromorphone HCl (Hydromorphone Hcl 0.5 Mg/0.5 Ml Syringe) 1 mg IVPUSH Q4H PRN; Protocol PRN Reason: Pain, Severe (Pain Scale 7-10) Last Admin: 05/02/23 15:25 Dose: 1 mg Documented By: ANANT Loratadine (Loratadine 10 Mg Tablet) 10 mg PO BEDTIME [facility] Last Admin: 05/01/23 22:25 Dose: 10 mg Documented By: VINICIUS Montelukast Sodium (Montelukast Sodium 10 Mg Tablet) 10 mg PO DAILY [facility] Last Admin: 05/02/23 09:15 Dose: 10 mg Documented By: ANANT Patient Own Med ( Beclomethasone Dipropionate [Qvar Redihaler] 80 Mcg/Actuation Hf 4 inhalation INHALE RBID [facility] Last Admin: 05/02/23 13:18 Dose: Not Given Documented By: ANANT Non-Admin Reason: Patient Refused Patient Own Med ( Budesonide 3 Mg Capsule,Delayed, Extend.Release) 9 mg PO DAILY [facility] Last Admin: 05/02/23 13:17 Dose: 9 mg Documented By: ANANT Patient Own Med ( Plecanatide [ Trulance] 3 Mg Tablet) 3 mg PO DAILY [facility] Last Admin: 05/02/23 13:16 Dose: 3 mg Documented By: ANANT Patient Own Medication ( Lansoprazole Dr 30 Mg Capsules) 30 each PO DAILY@0630 [facility] Last Admin: 05/01/23 07:54 Dose: 30 each Documented By: ANGELA Ondansetron HCl (Ondansetron Hcl 4 Mg/2 Ml Vial) 4 mg IVPUSH Q8H PRN PRN Reason: Nausea and Vomiting Last Admin: 05/02/23 11:03 Dose: 4 mg Documented By: ANANT Oxycodone HCl (Oxycodone Hcl Immed Release 5 Mg Tablet) 5 mg PO Q6H PRN PRN Reason: Pain, Mild (Pain Scale 1-3) Last Admin: 04/30/23 17:27 Dose: 5 mg Documented By: ANGELA Sodium Chloride (0.9 % Sodium Chloride Flush 3 Ml Syringe) 3 ml IVFLUSH QSHIFT [facility] Last Admin: 05/02/23 15:25 Dose: 3 ml Documented By: ANANT Spironolactone (Spironolactone 25 Mg Tablet) 100 mg PO DAILY [facility]; Protocol Last Admin: 04/30/23 07:46 Dose: 100 mg Documented By: ANGELA Labs 05/02/23 05:38 05/02/23 05:38 Labs: Laboratory Results - last 24 hr 05/02/23 05/02/23 05:38 05:38 MCV 84.4 MCH 25.3 L MCHC 29.9 L RDW 15.4 Plt Count 358 MPV 10.1 Immature Gran % (Auto) 0.2 Neut % (Auto) 41.7 L Lymph % (Auto) 39.6 [place] % (Auto) 6.1 Eos % (Auto) 11.7 H Baso % (Auto) 0.7 Lymph # (Auto) 3.9 [place] # (Auto) 0.6 Eos # (Auto) 1.1 H Baso # (Auto) 0.1 Abs Immat Gran (auto) 0.02 Absolute Neuts (auto) 4.0 Absolute Nucleated RBC 0.000 Nucleated RBC % (auto) 0.0 Anion Gap 13 Estim Creat Clear Calc 20.3 Estimated GFR > 60 Random Glucose 77 Calcium 8.7 Assessment and Plan (1) Acute pancreatitis: Status: Acute Plan 37-year-old female past medical history of ulcerative colitis comes into the hospital complaints of epigastric abdominal pain found to have acute pancreatitis Acute pancreatitis Etiology unclear: No gallstone seen on imaging, triglycerides low, denies alcohol use.? Reports recurrent episodes pancreatitis, follows with outpatient GI for the same Outpatient MRCP last week normal Pt followed by GI in fall Mesalamine listed class Ia as possible cause - will hold for now Clear liquid diet initiated yesterday on 05/01, pt experiencing postprandial right upper quadrant pain radiating to back, rated 8/10 Will continue clear liquid diet for now, advanced as tolerated GI consult Ulcerative colitis Continue home steroids Asymptomatic bacteriuria No treatment On spironolactone for acne Will hold Mood disorder continue home meds DVT prophylaxis:? Lovenox Pt?requires ongoing inpatient hospitalization for management of acute pancreatitis including IV narcotics for adequate pain control and close monitoring of po intake. Time Spent With Patient Time: Total time managing care of this patient today ____ minutes. Quality Stroke Does the patient have a stroke diagnosis?: No VTE Prior VTE?: No VTE Risk Level:: Medical - moderate - high VTE Device Contraindication: Treatment Not Indicated VTE Drug Contraindication: N/A - Med Ordered
[2023-05-02] MEDS: Loratadine 10 MG TABLET PO (20:49)
[2023-05-02] MEDS: Escitalopram Oxalate 10 MG TABLET PO (20:49)
[2023-05-02] MEDS: Fluticasone Propionate Nasal 16 GM SPRAY 1 SPRAY NOSTRIL-B (20:50)
[2023-05-02] MEDS: Enoxaparin Sodium 30 MG/0.3 ML SYRINGE SUBCUT (23:21)
[2023-05-03] VITALS: BP 113/63; PULSE 82; RESP 18; TEMP 36.2; O2SAT 98
[2023-05-03] MEDS: Albuterol Sulfate 90 MCG 8 GM INHALER 2 PUFF INHALE ×2 (01:33→19:59)
[2023-05-03] MEDS: HYDROmorphone HCl 0.5 MG/0.5 ML SYRINGE 1 MG IVPUSH ×6 (01:36→23:54)
[2023-05-03 04:00] VITALS: BP 119/74; PULSE 74; RESP 18; TEMP 36.6; O2SAT 98
[2023-05-03] MEDS: ondansetron HCL 4 MG/2 ML VIAL IVPUSH ×3 (06:49→23:54)
[2023-05-03 08:00] VITALS: BP 109/74; PULSE 80; RESP 20; TEMP 36.7; O2SAT 96
[2023-05-03] MEDS: 0.9 % Sodium Chloride Flush 3 ML SYRINGE IVFLUSH (08:36)
[2023-05-03] MEDS: Montelukast Sodium 10 MG TABLET PO (08:37)
[2023-05-03 10:57] VITALS: RESP 18
[2023-05-03] MEDS: polyethylene glycoL 3350 17 GM POWD.PACK PO (10:57)
--- NOTE | 2023-05-03 11:42 | P.PNIM_ITS ---
Subjective Subjective Date of Service: 05/03/23 Interval History: c/o epigastric + RUQ pain has been off mesalamine since January on Entyvio infusions, last 1 wk ago no N/V Review of Systems Review of Systems: Yes all other systems are reviewed and are negative Physical Exam Vital Signs: Vital Signs: Last Vital Signs Temp 98.0 F 05/03/23 08:00 Pulse 80 05/03/23 08:00 Resp 18 05/03/23 10:57 BP 109/74 05/03/23 08:00 Pulse Ox 96 05/03/23 08:00 O2 Del Method Room Air 05/03/23 08:00 Gen: in no acute distress HEENT: sclera anicteric, moist mucus membranes Neck: supple Lungs: clear to auscultation bilaterally Heart: regular rate and rhythm, no murmurs Abd: soft, tender epigastrium, negative Cat sign Ext: no edema Skin: warm/well-perfused Neuro: alert and oriented x3, no focal findings Psych: appropriate affect Objective Data Active Medications Acetaminophen (Acetaminophen 325 Mg Tablet) 650 mg PO Q6H PRN PRN Reason: Pain, Mild (Pain Scale 1-3) Albuterol Sulfate (Albuterol Sulfate 90 Mcg 8 Gm Inhaler) 2 puff INHALE Q4H PRN PRN Reason: wheezing Last Admin: 05/03/23 01:33 Dose: 2 puff Documented By: YOCASTA Enoxaparin Sodium (Enoxaparin Sodium 30 Mg/0.3 Ml Syringe) 30 mg SUBCUT Q24H [facility] Last Admin: 05/02/23 23:21 Dose: 30 mg Documented By: YOCASTA Escitalopram Oxalate (Escitalopram Oxalate 10 Mg Tablet) 10 mg PO BEDTIME [facility] Last Admin: 05/02/23 20:49 Dose: 10 mg Documented By: YOCASTA Fluticasone Propionate (Fluticasone Propionate Nasal 16 Gm [place]) 1 spray NOSTRIL-B BEDTIME [facility] Last Admin: 05/02/23 20:50 Dose: 1 spray Documented By: YOCASTA Hydrocortisone (Hydrocortisone 2.5 % Rectal Cr 30 Gm Tube) 1 appl [place] DAILY PRN PRN Reason: hemorrhoids Hydromorphone HCl (Hydromorphone Hcl 0.5 Mg/0.5 Ml Syringe) 1 mg IVPUSH Q4H PRN; Protocol PRN Reason: Pain, Severe (Pain Scale 7-10) Last Admin: 05/03/23 10:57 Dose: 1 mg Documented By: TREVER Loratadine (Loratadine 10 Mg Tablet) 10 mg PO BEDTIME [facility] Last Admin: 05/02/23 20:49 Dose: 10 mg Documented By: YOCASTA Montelukast Sodium (Montelukast Sodium 10 Mg Tablet) 10 mg PO DAILY [facility] Last Admin: 05/03/23 08:37 Dose: 10 mg Documented By: TREVER Patient Own Med ( Beclomethasone Dipropionate [Qvar Redihaler] 80 Mcg/Actuation Hf 4 inhalation INHALE RBID [facility] Last Admin: 05/03/23 08:40 Dose: 4 inhalation Documented By: TREVER Patient Own Med ( Budesonide 3 Mg Capsule,Delayed, Extend.Release) 9 mg PO DAILY [facility] Last Admin: 05/03/23 08:38 Dose: 9 mg Documented By: TREVER Patient Own Med ( Plecanatide [ Trulance] 3 Mg Tablet) 3 mg PO DAILY [facility] Last Admin: 05/03/23 08:38 Dose: 3 mg Documented By: TREVER Patient Own Medication ( Lansoprazole Dr 30 Mg Capsules) 30 each PO DAILY@0630 [facility] Last Admin: 05/03/23 06:49 Dose: 30 each Documented By: YOCASTA Ondansetron HCl (Ondansetron Hcl 4 Mg/2 Ml Vial) 4 mg IVPUSH Q8H PRN PRN Reason: Nausea and Vomiting Last Admin: 05/03/23 06:49 Dose: 4 mg Documented By: YOCASTA Oxycodone HCl (Oxycodone Hcl Immed Release 5 Mg Tablet) 5 mg PO Q6H PRN PRN Reason: Pain, Mild (Pain Scale 1-3) Last Admin: 04/30/23 17:27 Dose: 5 mg Documented By: ANGELA Polyethylene Glycol (Polyethylene Glycol 3350 17 Gm Powd.Pack) 17 gm PO DAILY [facility] Last Admin: 05/03/23 10:57 Dose: 17 gm Documented By: TREVER Senna/Docusate Sodium (Sennosides/Docusate Sodium Tablet) 2 tab PO BID [facility] Last Admin: 05/03/23 11:08 Dose: Not Given Documented By: TREVER Non-Admin Reason: Patient Refused Sodium Chloride (0.9 % Sodium Chloride Flush 3 Ml Syringe) 3 ml IVFLUSH QSHIFT [facility] Last Admin: 05/03/23 08:36 Dose: 3 ml Documented By: TREVER Spironolactone (Spironolactone 25 Mg Tablet) 100 mg PO DAILY [facility]; Protocol Last Admin: 04/30/23 07:46 Dose: 100 mg Documented By: CORNELIOORRMae Labs 05/02/23 05:38 05/02/23 05:38 Assessment and Plan (1) Acute pancreatitis: Status: Acute Plan d5 37yo F with UC admitted for recurrent acute pancreatitis acute pancreatitis - denies EtOH use. TGs low. has been told in past she had GB sludge. recheck RUQ US. outpt MRCP at outside hospital last week normal per pt - GI consult: medication-induced pancreatitis? doubt mesalamine as she has been off... Entyvio? - continue clear liquids, IV fluids, prn IV hydromorphone UC - continue budesonide IBS-C - continue plecanatide - bowel regimen asymptomatic bacteruria - no treatment indicated acne - hold spironolactone mood disorder - continue escitalopram VTE ppx - LMWH dispo - eventually home In my clinical judgment, the patient requires continued inpatient hospitalization for the following reasons: IV fluids, pain control Time Spent With Patient Time: Total time managing care of this patient today __35__ minutes. Quality Stroke Does the patient have a stroke diagnosis?: No VTE Prior VTE?: No VTE Risk Level:: Medical - moderate - high VTE Device Contraindication: Treatment Not Indicated VTE Drug Contraindication: N/A - Med Ordered
[2023-05-03] MEDS: Lactated Ringers 1,000 ML 100 ML IVCONT ×2 (12:11→22:17)
--- NOTE | 2023-05-03 14:05 | PM.EVENT ---
Event Note Date of Service: 05/03/23 Event Note: GI consult dictated Pancreatitis, etiology unclear. Agree with present management. Advance diet as tolerated. Time Spent With Patient Time: Total time managing care of this patient today ____ minutes.
[2023-05-03 16:41] VITALS: RESP 18
[2023-05-03 19:18] VITALS: BP 114/66; PULSE 84; RESP 18; TEMP 36.1; O2SAT 98
[2023-05-03] MEDS: Loratadine 10 MG TABLET PO (19:55)
[2023-05-03] MEDS: Fluticasone Propionate Nasal 16 GM SPRAY 1 SPRAY NOSTRIL-B (19:55)
[2023-05-03] MEDS: Sennosides/Docusate Sodium TABLET 2 TAB PO (19:55)
[2023-05-03] MEDS: Escitalopram Oxalate 10 MG TABLET PO (19:55)
[2023-05-03] MEDS: Enoxaparin Sodium 30 MG/0.3 ML SYRINGE SUBCUT (22:16)
--- NOTE | 2023-05-04 01:03 | CONS_ITS ---
DATE OF SERVICE: 05/03/2023 REFERRING PHYSICIAN: Winston Soni MD REASON FOR CONSULTATION: Pancreatitis. HISTORY OF PRESENT ILLNESS: The patient is a pleasant 37-year-old woman who was admitted to the hospital on April 29 with abdominal pain and pancreatitis shows a history of ulcerative colitis. Currently on treatment with Entyvio and budesonide. She developed abdominal pain the week prior to admission and was seen in the hospital in the emergency department where evaluation was undertaken with imaging studies including abdominal ultrasound on April 26, which was described as an unremarkable study. Previous ultrasounds have shown sludge, according to the patient, and she has had 3 admissions for pancreatitis in the last couple of months. She was referred to a general surgeon by her painting worker and has had appointment scheduled for tomorrow. MRI was reportedly negative according to the patient. On this admission, she underwent imaging with CT scanning, which was reviewed. This was interpreted as showing peripancreatic fat stranding consistent with acute pancreatitis around the pancreatic head. She is scheduled for followup ultrasound today. Laboratory studies obtained on admission documented a serum lipase of 102 with normal liver function tests. There has been no history of hypertriglyceridemia or hypercalcemia. The patient does not drink alcohol to excess. PAST MEDICAL HISTORY: 1. Pancreatitis. 2. Ulcerative colitis. 3. Anxiety/depression. 4. Gastroesophageal reflux disease. 5. Asthma and allergic rhinitis. CURRENT MEDICATIONS: Her current medication list is reviewed in the chart. ALLERGIES: MERCAPTOPURINE HAS BEEN ASSOCIATED WITH PANCREATITIS. SHE ALSO HAS ALLERGIES TO PROCHLORPERAZINE AND CLINDAMYCIN. FAMILY HISTORY: This is negative for pancreatitis. SOCIAL HISTORY: There is no current tobacco use. She denies significant alcohol intake. REVIEW OF SYSTEMS: SKIN: No pruritus. HEENT: Negative. CARDIOPULMONARY: No shortness of breath or chest pain. GASTROINTESTINAL: As above. GENITOURINARY: Negative. NEUROPSYCHIATRIC: Negative. PHYSICAL EXAMINATION: GENERAL: Shows a pleasant female, lying comfortably in bed. VITAL SIGNS: Reviewed in the electronic medical record. SKIN: Anicteric. HEENT: Shows no scleral icterus. NECK: Without lymphadenopathy or thyromegaly. LUNGS: Clear. HEART: Shows a regular rate and rhythm. S1, S2. No murmur. ABDOMEN: Soft. No focal masses or tenderness. Bowel sounds are present. No organomegaly is noted. EXTREMITIES: Without edema. LABORATORY DATA AND IMAGING STUDIES: Reviewed. IMPRESSION: Pancreatitis. The etiology for this is not clear. She does not appear to have gallbladder disease at this time, but does have a followup ultrasound scheduled. I agreed with treating her with antiemetics and pain medications as well as IV fluids. IgG levels will be obtained to rule out autoimmune pancreatitis. Thanks for asking me to see her. I will follow her in the hospital with you. MD KIMO Acevedo/ELSIE / [id number]
[2023-05-04 03:21] VITALS: BP 115/73; PULSE 78; RESP 18; TEMP 36.4; O2SAT 97
[2023-05-04] MEDS: HYDROmorphone HCl 0.5 MG/0.5 ML SYRINGE 1 MG IVPUSH ×5 (04:01→20:50)
[2023-05-04] MEDS: Lactated Ringers 1,000 ML 100 ML IVCONT ×2 (06:01→17:41)
[2023-05-04 06:34] LABS: Alanine Aminotransferase 9 U/L (0-31); Albumin Level 2.9 g/dL (3.5-5.0); Alkaline Phosphatase 80 U/L (39-117); Anion Gap 14 (12-20); Aspartate Amino Transferase 8 U/L (5-31); Bilirubin Total 0.2 mg/dL (0.0-1.0); Blood Urea Nitrogen 3 mg/dL (9-16); Calcium 8.6 mg/dL (8.4-10.2); Carbon Dioxide 23 mmol/L (22-29); Chloride 108 mmol/L (96-108); Estimated Glomerular Filt Rate > 60; Glucose Random 81 mg/dL (60-115); Magnesium 1.8 mg/dL (1.6-2.6); Potassium 3.5 mmol/L (3.3-5.1); Sodium 141 mmol/L (135-145); Total Protein 5.9 g/dL (6.5-8.0)
[2023-05-04 06:39] LABS: Hematocrit 30.7 % (37.0-47.0); Hemoglobin 9.1 g/dl (12.0-16.0); Mean Corpuscular HGB Conc 29.6 g/dl (31.0-35.0); Mean Corpuscular Hemoglobin 24.5 pg (27.0-33.0); Mean Corpuscular Volume 82.7 fL (80.0-98.0); Mean Platelet Volume 10.3 fL (9.4-12.3); Platelet Count 382 X10*3/uL (160-400); Red Blood Count 3.71 X10*6/uL (4.20-5.50); Red Cell Distribution Width 15.5 % (11.0-16.0); White Blood Count 9.9 X10*3/uL (4.8-10.8)
[2023-05-04 06:57] VITALS: BP 100/67; PULSE 76; RESP 16; TEMP 36.6; O2SAT 98
[2023-05-04 08:11] VITALS: RESP 18
[2023-05-04] MEDS: 0.9 % Sodium Chloride Flush 3 ML SYRINGE IVFLUSH (08:11)
[2023-05-04] MEDS: ondansetron HCL 4 MG/2 ML VIAL IVPUSH ×2 (08:12→16:47)
[2023-05-04] MEDS: Montelukast Sodium 10 MG TABLET PO (09:08)
[2023-05-04] MEDS: polyethylene glycoL 3350 17 GM POWD.PACK PO (09:16)
[2023-05-04] MEDS: Albuterol Sulfate 90 MCG 8 GM INHALER 2 PUFF INHALE ×2 (09:35→16:45)
[2023-05-04] MEDS: oxyCODONE HCl Immed Release 5 MG TABLET PO (09:35)
--- NOTE | 2023-05-04 11:17 | HO.PM.IMPN ---
Subjective Subjective Date of Service: 05/04/23 Interval History: abd pain slightly improved no N/V Review of Systems Review of Systems: Yes all other systems are reviewed and are negative Physical Exam Vital Signs: Vital Signs: Last Vital Signs Temp 98 F 05/04/23 06:57 Pulse 76 05/04/23 06:57 Resp 18 05/04/23 08:11 BP 100/67 05/04/23 06:57 Pulse Ox 98 05/04/23 06:57 O2 Del Method Room Air 05/04/23 03:21 Gen: in no acute distress HEENT: sclera anicteric, moist mucus membranes Neck: supple Lungs: clear to auscultation bilaterally Heart: regular rate and rhythm, no murmurs Abd: soft, tender epigastrium, negative Cat sign Ext: no edema Skin: warm/well-perfused Neuro: alert and oriented x3, no focal findings Psych: appropriate affect Objective Data Active Medications Acetaminophen (Acetaminophen 325 Mg Tablet) 650 mg PO Q6H PRN PRN Reason: Pain, Mild (Pain Scale 1-3) Albuterol Sulfate (Albuterol Sulfate 90 Mcg 8 Gm Inhaler) 2 puff INHALE Q4H PRN PRN Reason: wheezing Last Admin: 05/04/23 09:35 Dose: 2 puff Documented By: TREVER Enoxaparin Sodium (Enoxaparin Sodium 30 Mg/0.3 Ml Syringe) 30 mg SUBCUT Q24H [facility] Last Admin: 05/03/23 22:16 Dose: 30 mg Documented By: MARCUS Escitalopram Oxalate (Escitalopram Oxalate 10 Mg Tablet) 10 mg PO BEDTIME [facility] Last Admin: 05/03/23 19:55 Dose: 10 mg Documented By: MARCUS Fluticasone Propionate (Fluticasone Propionate Nasal 16 Gm [place]) 1 spray NOSTRIL-B BEDTIME [facility] Last Admin: 05/03/23 19:55 Dose: 1 spray Documented By: MARCUS Hydrocortisone (Hydrocortisone 2.5 % Rectal Cr 30 Gm Tube) 1 appl [place] DAILY PRN PRN Reason: hemorrhoids Hydromorphone HCl (Hydromorphone Hcl 0.5 Mg/0.5 Ml Syringe) 1 mg IVPUSH Q4H PRN; Protocol PRN Reason: Pain, Severe (Pain Scale 7-10) Last Admin: 05/04/23 08:11 Dose: 1 mg Documented By: TREVER Lactated Ringer's (Lr) 1,000 mls @ 100 mls/hr IVCONT .Q10H [facility] Last Admin: 05/04/23 06:01 Dose: 100 mls/hr Documented By: MARCUS Loratadine (Loratadine 10 Mg Tablet) 10 mg PO BEDTIME [facility] Last Admin: 05/03/23 19:55 Dose: 10 mg Documented By: MARCUS Montelukast Sodium (Montelukast Sodium 10 Mg Tablet) 10 mg PO DAILY [facility] Last Admin: 05/04/23 09:08 Dose: 10 mg Documented By: TREVER Patient Own Med ( Beclomethasone Dipropionate [Qvar Redihaler] 80 Mcg/Actuation Hf 4 inhalation INHALE RBID [facility] Last Admin: 05/04/23 09:11 Dose: 4 inhalation Documented By: TREVER Patient Own Med ( Budesonide 3 Mg Capsule,Delayed, Extend.Release) 9 mg PO DAILY [facility] Last Admin: 05/04/23 09:09 Dose: 9 mg Documented By: TREVER Patient Own Med ( Plecanatide [ Trulance] 3 Mg Tablet) 3 mg PO DAILY [facility] Last Admin: 05/04/23 09:09 Dose: 3 mg Documented By: TREVER Omeprazole (Omeprazole 20 Mg Capsule.Dr) 20 mg PO DAILY@0630 [facility] Last Admin: 05/04/23 10:11 Dose: Not Given Documented By: TREVER Non-Admin Reason: Start morning of 05/05. Ondansetron HCl (Ondansetron Hcl 4 Mg/2 Ml Vial) 4 mg IVPUSH Q8H PRN PRN Reason: Nausea and Vomiting Last Admin: 05/04/23 08:12 Dose: 4 mg Documented By: TREVER Oxycodone HCl (Oxycodone Hcl Immed Release 5 Mg Tablet) 5 mg PO Q6H PRN PRN Reason: Pain, Mild (Pain Scale 1-3) Last Admin: 05/04/23 09:35 Dose: 5 mg Documented By: TREVER Polyethylene Glycol (Polyethylene Glycol 3350 17 Gm Powd.Pack) 17 gm PO DAILY [facility] Last Admin: 05/04/23 09:16 Dose: 17 gm Documented By: TREVER Senna/Docusate Sodium (Sennosides/Docusate Sodium Tablet) 2 tab PO BID [facility] Last Admin: 05/04/23 09:17 Dose: Not Given Documented By: TREVER Non-Admin Reason: Patient Refused Sodium Chloride (0.9 % Sodium Chloride Flush 3 Ml Syringe) 3 ml IVFLUSH QSHIFT [facility] Last Admin: 05/04/23 08:11 Dose: 3 ml Documented By: TREVER Spironolactone (Spironolactone 25 Mg Tablet) 100 mg PO DAILY [facility]; Protocol Last Admin: 04/30/23 07:46 Dose: 100 mg Documented By: CTORRZ Labs 05/04/23 05:16 05/04/23 05:16 Labs: Laboratory Results - last 24 hr 05/04/23 05/04/23 05:16 05:16 MCV 82.7 MCH 24.5 L MCHC 29.6 L RDW 15.5 Plt Count 382 MPV 10.3 Absolute Nucleated RBC 0.000 Nucleated RBC % (auto) 0.0 Anion Gap 14 Estim Creat Clear Calc 21.0 Estimated GFR > 60 Random Glucose 81 Calcium 8.6 Magnesium 1.8 Total Bilirubin 0.2 AST 8 ALT 9 Alkaline Phosphatase 80 Total Protein 5.9 L Albumin 2.9 L Assessment and Plan (1) Acute pancreatitis: Status: Acute Plan d6 37yo F with UC admitted for recurrent acute pancreatitis acute pancreatitis - denies EtOH use. TGs low. has been told in past she had GB sludge but on our repeat US there is no sludge and no stones. outpt MRCP at outside hospital last week normal per pt - GI consult: medication-induced pancreatitis? doubt mesalamine as she has been off... Entyvio? IgG levels pending - try to advance to bland lowfat diet, IV fluids, prn IV hydromorphone UC - continue budesonide IBS-C - continue plecanatide - bowel regimen asymptomatic bacteruria - no treatment indicated acne - hold spironolactone mood disorder - continue escitalopram VTE ppx - LMWH dispo - eventually home In my clinical judgment, the patient requires continued inpatient hospitalization for the following reasons: IV fluids, pain control Time Spent With Patient Time: Total time managing care of this patient today ___35_ minutes. Quality Stroke Does the patient have a stroke diagnosis?: No VTE Prior VTE?: No VTE Risk Level:: Medical - moderate - high VTE Device Contraindication: Treatment Not Indicated VTE Drug Contraindication: N/A - Med Ordered
[2023-05-04 12:38] VITALS: RESP 20
--- NOTE | 2023-05-04 14:55 | MHC.CM.PN ---
per rounds pt is expected to dc tomorrow w/no servceis
[2023-05-04 15:50] VITALS: BP 98/56; PULSE 86; RESP 16; TEMP 36.8; O2SAT 96
[2023-05-04 19:54] VITALS: BP 99/58; PULSE 80; RESP 16; TEMP 36.1; O2SAT 97
[2023-05-04] MEDS: Loratadine 10 MG TABLET PO (20:06)
[2023-05-04] MEDS: Sennosides/Docusate Sodium TABLET 2 TAB PO (20:06)
[2023-05-04] MEDS: Escitalopram Oxalate 10 MG TABLET PO (20:06)
[2023-05-04] MEDS: Fluticasone Propionate Nasal 16 GM SPRAY 1 SPRAY NOSTRIL-B (20:50)
[2023-05-05] MEDS: Enoxaparin Sodium 30 MG/0.3 ML SYRINGE SUBCUT (00:16)
[2023-05-05] MEDS: ondansetron HCL 4 MG/2 ML VIAL IVPUSH ×2 (01:02→09:10)
[2023-05-05] MEDS: Lactated Ringers 1,000 ML 100 ML IVCONT ×2 (01:02→09:50)
[2023-05-05] MEDS: HYDROmorphone HCl 0.5 MG/0.5 ML SYRINGE 1 MG IVPUSH ×3 (01:02→09:10)
[2023-05-05 01:05] VITALS: BP 113/72; PULSE 81; RESP 16; TEMP 36.2; O2SAT 95
[2023-05-05] MEDS: Omeprazole 20 MG CAPSULE.DR PO (05:25)
[2023-05-05 07:38] VITALS: BP 117/65; PULSE 64; RESP 16; TEMP 36.1; O2SAT 98
[2023-05-05] MEDS: Montelukast Sodium 10 MG TABLET PO (09:02)
[2023-05-05] MEDS: Sennosides/Docusate Sodium TABLET 2 TAB PO (09:50)
[2023-05-05] MEDS: oxyCODONE HCl Immed Release 5 MG TABLET 10 MG PO (11:00)
--- NOTE | 2023-05-05 12:47 | MHC.CM.PN ---
Patient is discharged today home self care. She will self transport home.
--- NOTE | 2023-05-05 13:36 | P.DS_ITS ---
DS: Providers Provider Date of Service: 05/05/23 Date of admission: 04/29/23 22:39 Date of discharge: 05/05/23 Primary care physician: Mar Edwards MD Consults: 05/02/23 15:33 Consult to Gastroenterology Routine Consulting Provider: Cain Figueroa Reason for consultation: Recurrent pancreatitis DS: Diagnosis Discharge Diagnosis (1) Acute pancreatitis: Status: Acute DS: Summary Hospital Course Hospital Course: from admission H+P by hospitalist Melinda Sanchez MD, 04/29/23: 37-year-old female past medical history of acute pancreatitis comes into the hospital with complaints of abdominal pain epigastric region radiating to the back, consistent with a previous episode of acute pancreatitis.? Pain is 10/10.? Constant, no relieving factors.? Low oral intake.? Patient reports symptoms started about a week ago, getting worse.? Was seen in the hospital several days ago, was given p.o. analgesics, with no relief.? She has nausea, some vomiting, no chest pain, no shortness of breath, some diarrhea with no constipation, no urinary symptoms and no lower extremity edema.? On arrival to the ED patient hemodynamically stable with a slightly elevated heart rate, blood pressure slightly elevated all normalized.? Labs are significant for WBC count of 16.6, INR of 1.3, normal LFTs, lipase of 102, UA positive for leukocyte Estrace, WBC, and bacteria 37yo F with UC admitted for her 3rd episode of acute pancreatitis. She was managed on the medical-surgical floor and treated with bowel rest, IV fluid resuscitation, and IV/PO opioids. She does not drink EtOH. Triglycerides were low. No sonographic evidence of gallbladder stones or sludge but in the past she has had sludge and is working with a surgeon to plan cholecystectomy. An outpatient MRCP per the patient was normal. Her diet was advanced and she was discharged home and instructed to follow-up with her search engine marketing manager in [place]. IgG subclasses were drawn and are pending at the time of discharge. Asymptomatic bacteruria was not treated with antibiotics. Time Spent with Patient Time attestation: Total time managing care of this patient today _40___ minutes. Discharge coordination time: Greater than 30 minutes Quality: Safe Use of Opioids Does Pt have an Active Cancer Diagnosis on the Problem List?: No Quality: Stroke Does the patient have a stroke diagnosis?: No Physical Exam Vital Signs: Vital Signs: Last Vital Signs Temp 96.9 F 05/05/23 07:38 Pulse 64 05/05/23 07:38 Resp 16 05/05/23 07:38 BP 117/65 05/05/23 07:38 Pulse Ox 98 05/05/23 07:38 O2 Del Method Room Air 05/05/23 07:38 Gen: in no acute distress HEENT: sclera anicteric, moist mucus membranes Neck: supple Lungs: clear to auscultation bilaterally Heart: regular rate and rhythm, no murmurs Abd: soft, mild periumbilical tenderness, non-distended Ext: no edema Skin: warm/well-perfused Neuro: alert and oriented x3, no focal findings Psych: appropriate affect DS: Data Data Completed and Pending Completed studies during hospitalization [Text1]: Laboratory Results WBC 9.9 X10*3/uL (4.8-10.8) 05/04/23 05:16 RBC 3.71 X10*6/uL (4.20-5.50) L 05/04/23 05:16 Hgb 9.1 g/dl (12.0-16.0) L 05/04/23 05:16 Hct 30.7 % (37.0-47.0) L 05/04/23 05:16 MCV 82.7 fL (80.0-98.0) 05/04/23 05:16 MCH 24.5 pg (27.0-33.0) L 05/04/23 05:16 MCHC 29.6 g/dl (31.0-35.0) L 05/04/23 05:16 RDW 15.5 % (11.0-16.0) 05/04/23 05:16 Plt Count 382 X10*3/uL (160-400) 05/04/23 05:16 MPV 10.3 fL (9.4-12.3) 05/04/23 05:16 Immature Gran % (Auto) 0.2 % (0.0-0.4) 05/02/23 05:38 Neut % (Auto) 41.7 % (45-73) L 05/02/23 05:38 Lymph % (Auto) 39.6 % (20-40) 05/02/23 05:38 [place] % (Auto) 6.1 % (2-11) 05/02/23 05:38 Eos % (Auto) 11.7 % (0-4) H 05/02/23 05:38 Baso % (Auto) 0.7 % (0-2) 05/02/23 05:38 Lymph # (Auto) 3.9 X10*3/uL (1.2-4.9) 05/02/23 05:38 [place] # (Auto) 0.6 X10*3/uL (0.1-1.2) 05/02/23 05:38 Eos # (Auto) 1.1 X10*3/uL (0.0-0.4) H 05/02/23 05:38 Baso # (Auto) 0.1 X10*3/uL (0.0-0.2) 05/02/23 05:38 Abs Immat Gran (auto) 0.02 X10*3/uL (0.00-0.03) 05/02/23 05:38 Absolute Neuts (auto) 4.0 x10*3/uL (2.0-8.3) 05/02/23 05:38 Absolute Nucleated RBC 0.000 X10*3/uL (0.0-0.012) 05/04/23 05:16 Nucleated RBC % (auto) 0.0 /100WBC (0.0-0.2) 05/04/23 05:16 PT 15.2 SEC (11.1-13.3) H 04/29/23 16:15 INR 1.3 (0.9-1.1) H 04/29/23 16:15 Sodium 141 mmol/L (135-145) 05/04/23 05:16 Potassium 3.5 mmol/L (3.3-5.1) 05/04/23 05:16 Chloride 108 mmol/L (96-108) 05/04/23 05:16 Carbon Dioxide 23 mmol/L (22-29) 05/04/23 05:16 Anion Gap 14 (12-20) 05/04/23 05:16 BUN 3 mg/dL (9-16) L 05/04/23 05:16 Creatinine 0.61 mg/dL (0.5-1.4) 05/04/23 05:16 Estim Creat Clear Calc 21.0 05/04/23 05:16 Estimated GFR > 60 05/04/23 05:16 Random Glucose 81 mg/dL (60-115) 05/04/23 05:16 Calcium 8.6 mg/dL (8.4-10.2) 05/04/23 05:16 Magnesium 1.8 mg/dL (1.6-2.6) 05/04/23 05:16 Total Bilirubin 0.2 mg/dL (0.0-1.0) 05/04/23 05:16 AST 8 U/L (5-31) 05/04/23 05:16 ALT 9 U/L (0-31) 05/04/23 05:16 Alkaline Phosphatase 80 U/L (39-117) 05/04/23 05:16 Troponin I High Sens < 2.7 ng/L (<3.5-17.0) 04/29/23 16:15 Total Protein 5.9 g/dL (6.5-8.0) L 05/04/23 05:16 Albumin 2.9 g/dL (3.5-5.0) L 05/04/23 05:16 Triglycerides 91 mg/dL 04/30/23 06:18 Lipase 102 U/L (8-78) H 04/29/23 16:15 Beta HCG, Quant < 2 mIU/mL 04/29/23 16:15 Urine Color Yellow 04/29/23 16:15 Urine Appearance Clear 04/29/23 16:15 Urine pH 7.0 (5.0-9.0) 04/29/23 16:15 Ur Specific [place] 1.015 (1.005-1.025) 04/29/23 16:15 Urine Protein Negative mg/dL (Neg-Trace) 04/29/23 16:15 Urine Glucose (UA) Negative mg/dL (Negative) 04/29/23 16:15 Urine Ketones 15 mg/dL (Negative) 04/29/23 16:15 Urine Blood Negative (Negative) 04/29/23 16:15 Urine Nitrite Negative (Negative) 04/29/23 16:15 Ur Leukocyte Esterase Small (1+) (Negative) H 04/29/23 16:15 Urine RBC 6-10 /HPF (0-2) H 04/29/23 16:15 Urine WBC 0-5 /HPF (0-5) 04/29/23 16:15 Ur Squamous Epith Cells 3-5 /HPF (0-2) 04/29/23 16:15 Urine Bacteria 1+ (None Seen) 04/29/23 16:15 Hyaline Casts 0-2 /LPF (0-2) 04/29/23 16:15 Impressions Abdomen/Pelvis CT 04/29/23 20:36 IMPRESSION: * Peripancreatic fat stranding especially around the head of the pancreas consistent with ACUTE PANCREATITIS. No evidence of pancreatic necrosis or other complication at this time. Bilateral adnexal cysts, in this patient age group this is likely physiologic, no follow-up is required. Findings are overwhelmingly likely to represent a benign functional cyst. No followup imaging recommended. Abdomen Ultrasound 05/03/23 15:50 IMPRESSION: No cholelithiasis or gallbladder sludge. No biliary ductal dilatation. Discharge Plan Discharge Anticipated Discharge Date/Time: 05/05/23 13:31 Patient Disposition: Home, Self-Care Discharge Diagnosis: acute pancreatitis Referrals: Mar Edwards MD [Primary Care Provider] - 1 Week [place] [Other] - 1 Week (Fax to [phone]) Discharge Medications: New oxycodone 5 mg Tablet 5 - 10 mg PO Q6H PRN (Reason: mod-sev pain) Qty: 24 0RF Rx Instructions: Partial Fill upon patient request. Continued montelukast 10 mg tablet 10 mg PO DAILY Qty: 90 1RF albuterol sulfate 90 mcg/actuation HFA aerosol inhaler 2 puff inhalation Q4H PRN (Reason: wheezing) Qty: 8.5 1RF fexofenadine 60 mg tablet 60 mg PO BEDTIME lansoprazole 30 mg capsule,delayed release(DR/EC) 30 mg PO DAILY Rx Instructions: do not interchange, patient has with her escitalopram oxalate 10 mg tablet 10 mg PO BEDTIME Entyvio 300 mg recon soln 300 mg IV Q8W Qvar RediHaler 80 mcg/actuation HFA aerosol breath activated 4 inh inhalation Q12H fluticasone propionate 50 mcg/actuation [place],Suspension 1 spray INTRANASAL BEDTIME Rx Instructions: administer into each nostril ondansetron 4 mg tablet,disintegrating 4 mg PO Q6-8H PRN (Reason: nausea and vomiting) Qty: 7 0RF budesonide 3 mg capsule,delayed,extend.release 9 mg PO QAM Trulance 3 mg tablet 3 mg PO DAILY mesalamine 1,000 mg suppository 1,000 mg [place] BEDTIME PRN (Reason: gi irritation) spironolactone 100 mg tablet 100 mg PO QAM hydrocortisone [Anusol-HC] 2.5 % cream with perineal applicator 1 appl [place] DAILY PRN (Reason: hemorrhoids) Qty: 30 0RF Discontinued oxycodone 5 mg tablet 5 mg PO Q6H PRN (Reason: pain) Qty: 20 0RF Rx Instructions: Partial Fill upon patient request. Discharge Orders: Discharge Order (Routine); Ordered 05/05/23 Ordered By: Winston Soni Diet: Low fat, low cholesterol Activity on Discharge: As tolerated Stand Alone Forms: Patient Portal Discharge page Care Plan Goals: prevent future episodes of pancreatitis Health Concerns: acute pancreatitis Plan of Treatment: low-fat bland diet use acetaminophen for mild pain, oxycodone for moderate-severe pain follow up with your search engine marketing manager in [place] pending labs: IgG subclasses, 05/04/23 Please follow up with your primary care doctor within 1 week. Return to the hospital if you experience recurrent or worsening symptoms. Assessment: See Discharge Summary.
[2023-05-06 16:13] LABS: Immunoglobulin G Subclass 1 532 mg/dL (382-929); Immunoglobulin G Subclass 2 282 mg/dL (241-700); Immunoglobulin G Subclass 3 48 mg/dL (22-178); Immunoglobulin G Subclass 4 20.7 mg/dL (4-86); Immunoglobulin G Total 953 mg/dL (600-1640)
== END 2023-05-05 14:49 | disposition home or self-care (01) | DRG 282 ==
LOC: HO.ED 19:02 → HO.EDOVER 22:48 → HO.IMC 23:53 → HO.S3 05-02 00:49
PROVIDERS: Internal Medicine Gastroenterology; Registered Nurse Emergency; Student in an Organized Health Care Education/Training Program; Admitting Provider Internal Medicine; Emergency Provider Emergency Medicine; PCP Internal Medicine; Visit Provider Family Medicine
DX: K85.90 Acute pancreatitis without necrosis or infection, unspecified (principal); K51.90 Ulcerative colitis, unspecified, without complications; K21.9 Gastro-esophageal reflux disease without esophagitis; F41.9 Anxiety disorder, unspecified; F32.A Depression, unspecified; J45.30 Mild persistent asthma, uncomplicated; Z87.891 Personal history of nicotine dependence; Z79.51 Long term (current) use of inhaled steroids; Z79.52 Long term (current) use of systemic steroids; Z79.899 Other long term (current) drug therapy
CPT/HCPCS: 36415; 74177; 76705; 80048; 80053; 81001; 82784; 83690; 83735; 84478; 84484; 84702; 85025; 85027; 85610; 87086; 93005; 99285; J1170; J1650; J1885; J2270; J2405; Q9967

== ENCOUNTER → 2023-04-29 15:57 | Outpatient (BNV) | payer OTHER, SELFPAY | PROVIDERS: Admitting Provider Internal Medicine; Emergency Provider Emergency Medicine; PCP Internal Medicine; Visit Provider Internal Medicine Cardiovascular Disease | DX: R10.9 Unspecified abdominal pain (principal) | CPT/HCPCS: 93010 ==

== ENCOUNTER → 2023-04-29 22:39 | Outpatient (BNV) | payer OTHER, SELFPAY | PROVIDERS: Admitting Provider Internal Medicine; Emergency Provider Emergency Medicine; PCP Internal Medicine; Visit Provider Internal Medicine | DX: K85.90 Acute pancreatitis without necrosis or infection, unspecified (principal) | CPT/HCPCS: 99223; 99232; 99233; 99239 ==